=== PATIENT | female | born 1955 | race Caucasian/White ===

== ENCOUNTER 2018-12-04 02:04 | Outpatient (CLI) | payer BC, SELFPAY ==
[2018-12-04 12:58] LABS: HCT 38.7 % (36.0-46.0); HGB 12.4 g/dL (12.0-15.5); Mean Corpuscular Hemoglobin 27.2 pg (27.0-33.0); Mean Corpuscular Volume 84.9 fL (80-95); Mean Platelet Volume 10.1 fL (8.0-11.0); Platelet Count 310 x1000/uL (130-400); RBC 4.56 m/cumm (4.00-5.20); RBC Distribution Width 15.2 % (11.7-14.6); White Blood Cell Count 5.25 k/cumm (4.4-10.8)
[2018-12-04 14:32] LABS: ALT 20 U/L (12-78); AST 18 U/L (15-37); Albumin 3.6 g/dL (3.4-5.0); Alkaline Phosphatase 68 U/L (46-116); Anion Gap 8.7 mmol/L (3-11); BUN 16 mg/dL (7-18); Bilirubin, Total 0.7 mg/dL (0.2-1.0); CO2 27.3 mmol/L (21.0-32.0); CREATININE 0.93 mg/dL (0.55-1.02); Calcium 9.1 mg/dL (8.5-10.1); Chloride 104 mmol/L (98-107); Glucose 99 mg/dL (70-100); Sodium 140 mmol/L (136-145); TSH (W/Ref FT4) 2.09 uIU/mL (0.358-3.74); Total Protein 6.8 g/dL (6.4-8.2); Vitamin B12 948 pg/mL (193-986)
== END 2018-12-04 02:24 ==
PROVIDERS: PCP Family Medicine; Visit Provider Family Medicine
DX: I48.91 Unspecified atrial fibrillation (principal); R53.83 Other fatigue
CPT/HCPCS: 36415; 80053; 85027; 82607; 84443

== ENCOUNTER 2019-12-18 07:28 | Outpatient (CLI) | payer BC, SELFPAY ==
--- NOTE | 2019-12-18 08:00 | DI.RAD_ITS ---
EXAM: XR KNEE RT 4V AP,LAT,ADITYA,PAT CLINICAL HISTORY: r knee pain,M25.561 TECHNIQUE: 2D digital imaging was performed. COMPARISON: CR RIGHT KNEE COMPLETE from 07/10/2014 FINDINGS: There is moderate narrowing of the medial femoral tibial joint, similar to the previous exam. There is mild to moderate periarticular spurring throughout. Patellofemoral joint is well maintained. An enthesophyte is seen at the quadriceps insertion. No joint effusion is visible. IMPRESSION: moderate degenerative changes of the medial femoral tibial joint, with some worsening when compared w ith 2014..
== END 2019-12-18 07:48 ==
PROVIDERS: PCP Family Medicine; Visit Provider Family Medicine
DX: M25.561 Pain in right knee (principal); M17.11 Unilateral primary osteoarthritis, right knee
CPT/HCPCS: 73564

== ENCOUNTER 2020-02-11 02:38 | Outpatient (CLI) | payer BC, SELFPAY ==
[2020-02-11 09:12] LABS: ALT 26 U/L (14-59); AST 18 U/L (15-37); Albumin 3.8 g/dL (3.4-5.0); Alkaline Phosphatase 67 U/L (46-116); Anion Gap 7.6 mmol/L (3-11); BUN 12 mg/dL (7-18); Bilirubin, Total 0.9 mg/dL (0.2-1.0); CO2 27.4 mmol/L (21.0-32.0); CREATININE 0.89 mg/dL (0.55-1.02); Calcium 10.3 mg/dL (8.5-10.1); Calculated LDL 106 mg/dL (<100); Chloride 106 mmol/L (98-107); Cholesterol 203 mg/dL (<200); Glucose 93 mg/dL (74-106); HDL Cholesterol 75 mg/dL (40-60); Potassium 4.4 mmol/L (3.5-5.1); Sodium 141 mmol/L (136-145); Triglyceride 114 mg/dL (<150)
== END 2020-02-11 02:58 ==
PROVIDERS: PCP Family Medicine; Visit Provider Family Medicine
DX: I48.91 Unspecified atrial fibrillation (principal)
CPT/HCPCS: 36415; 80053; 80061

== ENCOUNTER → 2021-07-01 10:13 | Outpatient (BNVA) | payer MEDICARE, BC, SELFPAY | PROVIDERS: PCP Family Medicine; Referring Provider Family Medicine; Visit Provider Student in an Organized Health Care Education/Training Program | DX: M17.11 Unilateral primary osteoarthritis, right knee (principal) | CPT/HCPCS: 20610; J1040 ==

== ENCOUNTER 2021-11-01 10:23 | Outpatient (CLI) | payer MEDICARE, BC, SELFPAY | END 2021-11-01 10:24 | disposition home or self-care (01) | LOC: DIORS 10:23 | PROVIDERS: PCP Family Medicine; Referring Provider Family Medicine; Visit Provider Physician Assistant | DX: Z01.818 Encounter for other preprocedural examination (principal); M17.11 Unilateral primary osteoarthritis, right knee ==

== ENCOUNTER 2021-11-08 01:19 | Outpatient (CLI) | payer MEDICARE, BC, SELFPAY ==
[2021-11-08 09:56] LABS: HCT 39.8 % (36.0-46.0); HGB 12.7 g/dL (11.2-15.7); MCH 29.3 pg (27.0-33.0); MCHC 31.9 % (32.0-36.0); MCV 92 fL (80-95); MPV 9.5 fL (8.0-11.0); Platelet Count 282 10^3/uL (130-400); RBC 4.34 10^6/uL (3.93-5.22); RDW 13.2 % (11.7-14.6); RDW-SD 44.7 fL; WBC 5.71 10^3/uL (4.4-10.8)
[2021-11-08 11:22] LABS: Source Nasal/Nares
[2021-11-08 11:31] LABS: Anion Gap 7.9 mmol/L (3-11); BUN 14 mg/dL (7-18); CO2 26.1 mmol/L (21.0-32.0); Calcium 9.8 mg/dL (8.5-10.1); Chloride 104 mmol/L (98-107); Estimated GFR 55.64 (mL/min/1.73m2); Glucose 129 mg/dL (74-106); Potassium 4.6 mmol/L (3.5-5.1); Sodium 138 mmol/L (136-145)
[2021-11-08 19:01] LABS: COVID-19 PCR Negative (Negative)
== END 2021-11-08 01:20 | disposition home or self-care (01) ==
LOC: LBO 01:19
PROVIDERS: PCP Family Medicine; Visit Provider Student in an Organized Health Care Education/Training Program
DX: M25.561 Pain in right knee (principal); M17.11 Unilateral primary osteoarthritis, right knee; Z20.822 Contact with and (suspected) exposure to COVID-19; Z01.818 Encounter for other preprocedural examination; Z01.812 Encounter for preprocedural laboratory examination
CPT/HCPCS: 36415; 80048; 85027; 87635; U0005

== ENCOUNTER 2021-11-08 01:41 | Outpatient (CLI) | payer MEDICARE, BC, SELFPAY | END 2021-11-08 01:42 | disposition home or self-care (01) | LOC: LBO 01:41 | PROVIDERS: PCP Family Medicine; Visit Provider Student in an Organized Health Care Education/Training Program ==

== ENCOUNTER 2021-11-12 01:29 | Outpatient (CLI) | payer MEDICARE, BC, SELFPAY ==
[2021-11-12 10:22] LABS: Source Nasal/Nares
[2021-11-12 15:57] LABS: COVID-19 PCR Negative (Negative)
== END 2021-11-12 01:30 | disposition home or self-care (01) ==
LOC: LBO 01:29
PROVIDERS: PCP Family Medicine; Visit Provider Student in an Organized Health Care Education/Training Program
DX: Z20.822 Contact with and (suspected) exposure to COVID-19 (principal); Z01.818 Encounter for other preprocedural examination
CPT/HCPCS: 87635; U0005

== ENCOUNTER 2021-11-22 02:39 | Outpatient (CLI) | payer MEDICARE, BC, SELFPAY ==
[2021-11-22 11:20] LABS: Source Nasal/Nares
[2021-11-22 17:21] LABS: COVID-19 PCR Negative (Negative)
== END 2021-11-22 02:40 | disposition home or self-care (01) ==
LOC: LBO 02:40
PROVIDERS: PCP Family Medicine; Visit Provider Student in an Organized Health Care Education/Training Program
DX: Z20.822 Contact with and (suspected) exposure to COVID-19 (principal); Z01.818 Encounter for other preprocedural examination
CPT/HCPCS: 87635; U0005

== ENCOUNTER 2021-11-23 07:07 | Day surgery (SDC) | payer MEDICARE, BC, SELFPAY ==
[2021-11-23] VITALS (7 sets, daily range): BP systolic 137–157; BP diastolic 60–87; PULSE 54–71; RESP 12–49; TEMP 35.9–37; O2SAT 53–98; BMI 36.2
--- NOTE | 2021-11-23 07:19 | W.PM.DS.N ---
DS: Diagnosis Discharge Diagnosis (1) Osteoarthritis of right knee: Status: Acute Discharge Plan Disposition Patient Disposition: HOME Condition: Good Discharge Details Reason For Visit: Right knee DJD Attending Provider: Reyes Monet Primary Care Provider: Sharon Gore Home Meds and New Rx's Prescriptions: New aspirin 81 mg tablet,delayed release (DR/EC) 81 mg PO BID Qty: 60 0RF celecoxib 200 mg capsule 200 mg PO BID PRN (Reason: pain) Qty: 60 1RF pantoprazole 40 mg tablet,delayed release (DR/EC) 40 mg PO DAILY Qty: 30 0RF oxycodone 5 mg tablet 5 mg PO Q4H Qty: 18 0RF Continued famotidine [Pepcid] 20 mg tablet 20 mg PO HS nystatin 100,000 unit/gram powder 1 applic TP BID Qty: 60 4RF sertraline 25 mg tablet 25 mg PO DAILY Qty: 90 4RF propafenone 225 mg capsule,extended release 12 hr 225 mg PO Q12H Qty: 180 3RF estradiol [Yuvafem] 10 mcg tablet 10 mcg VG 2 times weekly Qty: 24 11RF clonazepam 1 mg tablet 1 mg PO QHS MDD 1 PRN (Reason: insomnia) Qty: 30 1RF Rx Instructions: use sparingly acetaminophen [Acetaminophen Extra Strength] 500 MG tablet 1,000 mg PO Q8H PRN PRNQty: 180 3RF Discharge Instructions Additional Instructions: Total Knee Discharge Instructions Activity: The most important activity is to walk. You should try to take short walks a few times a day. It is important that when resting you work on keeping the knee straight. Avoid putting a pillow behind the knee as this will encourage flexion. Work on range of motion exercises as provided by Physical Therapy. If you have the [employer] [address] bike coming, this will be your primary tool for exercise after the knee replacement. You should use it and follow the directions for the knee. Utilize the other exercises sparingly based on your symptoms. - Start outpatient physical therapy within 2 weeks. - You should wear the SANJAY hose on both legs for 2 weeks. You may remove these at night. You may also use any compression sock in place of the SANJAY hose. - Utilize [employer] to review exercises, see videos on exercises and obtain basic information pertaining to your surgery and your recovery. Dressing: Remove the Aj wrap by 2 days after your surgery and put on the SANJAY stocking given to you from the hospital. Keep the surgical dressing (underneath the AJ wrap) in place for at least one week. After the first week it may be removed and replaced with light gauze and tape or nothing. The wound and dressing may get wet after 3 days but avoid soaking the dressing or otherwise it will need to be changed. Many people prefer covering the dressing with cling wrap (saran wrap) to minimize it from getting soaked. If it gets wet, just pat dry. If it starts to peel off then it will need to be changed. Medications: - You should take Tylenol and anti-inflammatory Celebrex as your primary pain control medications. If the Celebrex is too expensive or not covered, please call the office for another alternative (Advil/Ibuprofen or Naproxen/Aleve) - You have been prescribed a stronger pain medication Oxycodone for breakthrough pain, take as needed as prescribed. - You have also been prescribed a stomach acid reduction agent Pantoprozole to help reduce stomach acid and reflux. - You will be taking Aspirin 81mg twice a day for DVT prevention unless instructed otherwise. - If you have constipation you should take Colace or Miralax (both [id number]). It takes most people 3-4 days to have a bowel movement. Follow-up: 2 weeks If you have any acute concerns or questions, please do not hesitate to contact the office at [phone]. You may contact Dr. Monet with any questions after hours through the hospital at [phone] or on his cell phone at [phone]. Referrals: Reyes Monet MD [ [facility] STAFF PHYSICIAN] - Equipment/Supplies: Walker Activity:: Elevate Remove Dressings/Wound Care:: Do Not Remove Shower/Bathe:: Cover Diet:: As Tolerated Discharge Orders Discharge Orders: Discharge Order (Routine); Ordered 11/23/21 Ordered By: Reyes Monet DS: Summary Time Spent with Patient providing and/or coordinating discharge services: Less than 30 minutes Status at Discharge Functional status at discharge: uses cane/walker Overall status at discharge: patient is progressing back to baseline Mental Status: mental status grossly normal Speech and Movement: speech and movement normal Mood: congruent mood Affect: normal affect Exam Psych Mental Status: mental status grossly normal Speech and Movement: speech and movement normal Mood: congruent mood Affect: normal affect PFSH All Active Problems Acromioclavicular joint arthritis (Chronic) Anxiety and depression (Chronic 01/15/14) Atrial fibrillation (Chronic) Atrophic vaginitis (Chronic 11/02/17) Gastritis (Chronic) 12/07/15-MILD; Keith ZENG H. PYLORI INFECTION Hiatal hernia (Chronic) 3 cm 12/07/15 DR. ZEPEDA 11/03/20 [facility] Irritable colon (Chronic) Partial tear of right rotator cuff (Chronic 01/01/16) Posterior vitreous detachment (Chronic 07/14/14) Shoulder pain, left (Chronic 07/08/14) Tinnitus (Chronic) Annual physical exam (Acute) Osteoarthritis of right knee (Acute) Depo-Medrol injection: 07/01/2021; 03/02/2020 Synvisc ONE: 01/15/2021 Cerumen impaction (Acute) Medical History Anxiety Atrial fibrillation F/U with cardiology @ [facility] [place]. Dr. Hwang 04/2021 Depression GERD (gastroesophageal reflux disease) H. pylori infection (04/07/16) Hiatal hernia Menopausal disorder (07/08/14) Microscopic hematuria Rotator cuff tendonitis Surgical History Arthroscopy, Shoulder 10/06/15; RIGHT Augmentation mammoplasty B/L IMPLANTS Cystoscopy Hysterectomy, Laproscopic (~2007) [facility] STRESS TEST (~03/2011) NORMAL Family History (Updated 11/24/20 @ 10:08 by Tori Lam) Father Colon cancer Essential hypertension Heart disease Hyperlipidemia Mother Essential hypertension Depression Brother Essential hypertension Heart disease Myocardial infarction Neoplasm LUNG Asthma Brother Diabetes Paternal Grandfather Diabetes Essential hypertension Maternal Grandmother Essential hypertension Depression Asthma Social History (Updated 11/24/20 @ 10:08 by Tori Lam) Smoking/Tobacco Use Status: Never Second Hand Exposure: No (CHILDHOOD EXPOSURE) Smoking risk assessment performed?: Yes Alcohol Intake: current Alcohol Intake frequency: a few times a week Alcohol type: hard liquor Drug use: Never Substance use type: does not use Caregiver/Support person: No Household members: spouse Housing: house Communication Needs: None Do you need help understanding health information?: Never Pets and animals: No Sexually active: Yes Do you think of yourself as: straight/heterosexual Current gender identity: female What is your relationship status?: How often do you talk on the phone with friends or family?: once per week How often do you get together with friends or relatives?: once per week How often do you attend episcopalian or anglican services?: decline to answer Do you belong to any clubs or organized social groups?: yes Panel score (0-1 are the most socially isolated patients): 2 What type of physical activity do you participate in: walking and yoga Duration: 30-45 minutes/day Frequency: 3-4 times per week Yaneli/Church: Taoism Special yaneli needs: No Seatbelt use: always Helmet use: Yes Helmet use: sometimes Drive intox or ride w/intox dedicated regional driver: No Do you feel safe at home: Yes (Spouse is in room) Do you feel safe in your relationship?: Yes
[2021-11-23] MEDS: Gabapentin 300 MG CAP PO (07:45)
[2021-11-23] MEDS: Celecoxib 200 MG CAP 400 MG PO (07:45)
[2021-11-23] MEDS: Acetaminophen 500 MG TAB 1000 MG PO (07:46)
[2021-11-23] MEDS: Lactated Ringers 1,000 ML 80 ML IV (07:50)
--- NOTE | 2021-11-23 07:51 | ANES.PREOP_ITS ---
General Info Date of Service Date Performed: 11/23/21 Height: 5 ft 5 in Weight: 98.7 kg Body Mass Index (BMI): 36.2 Surgical Procedure: Operation Date: 11/23/21 10:10 Proposed Procedure Side Surgeon p Knee Total Arthroplasty Cementless Right Reyes Monet MD Meds Allergies and Home Medications Allergies Allergy/AdvReac Type Severity Reaction Status Date / Time No Known Drug Allergies Allergy Verified 11/23/21 07:37 Home Medication Medication Instructions Recorded acetaminophen 500 mg tablet 1,000 mg PO Q8H PRN PRN #180 tabs 05/12/16 (Acetaminophen Extra Strength) nystatin 100,000 unit/gram topical 1 applic topical BID #60 grams 04/06/21 powder sertraline 25 mg tablet 25 mg PO DAILY #90 tab-caps 06/14/21 propafenone 225 mg 225 mg PO Q12H #180 caps 08/13/21 capsule,extended release 12 hr estradiol 10 mcg vaginal tablet 10 mcg vaginal 2 times weekly #24 08/16/21 (Yuvafem) tab-caps clonazepam 1 mg tablet 1 mg PO QHS PRN insomnia #30 tabs 08/22/21 famotidine 20 mg tablet (Pepcid) 20 mg PO HS 11/01/21 Current Visit Medications: Current Medications Generic Name Dose Route Start Last Admin Trade Name Freq PRN Reason Stop Dose Admin Acetaminophen 1,000 mg 11/23/21 06:00 11/23/21 07:46 Acetaminophen 500 Mg Tab PO 11/23/21 18:00 1,000 mg PREOP JORGE LUIS Administration Acetaminophen 1,000 mg 11/23/21 14:00 Acetaminophen 500 Mg Tab PO TID JORGE LUIS Aspirin 81 mg 11/23/21 20:00 Aspirin E.C. 81 Mg Tabec PO BID JORGE LUIS Celecoxib 400 mg 11/23/21 06:00 11/23/21 07:45 Celecoxib 200 Mg Cap PO 11/23/21 18:00 400 mg PREOP JORGE LUIS Administration Celecoxib 200 mg 11/23/21 20:00 Celecoxib 200 Mg Cap PO BID JORGE LUIS Docusate Sodium 100 mg 11/23/21 07:17 Docusate Sodium 100 Mg Cap PO BID PRN PRN Constipation Gabapentin 300 mg 11/23/21 06:00 11/23/21 07:45 Gabapentin 300 Mg Cap PO 11/23/21 18:00 300 mg PREOP JORGE LUIS Administration Gabapentin 300 mg 11/23/21 22:00 Gabapentin 300 Mg Cap PO HS JORGE LUIS Hydromorphone HCl 0.5 mg 11/23/21 07:17 Hydromorphone 2 Mg/Ml Vial IVP Q2H PRN PRN Tranexamic Acid 1,000 mg/ 60 mls @ 360 mls/hr 11/23/21 06:00 Sodium Chloride IVPB 11/23/21 18:00 PREOP JORGE LUIS Tranexamic Acid 1,000 mg/ 60 mls @ 360 mls/hr 11/23/21 06:00 Sodium Chloride IVPB 11/23/21 18:00 DIRECTED JORGE LUIS Ringer's Solution 1,000 mls @ 80 mls/hr 11/23/21 06:00 IV 12/22/21 23:59 INFUSION JORGE LUIS Cefazolin Sodium/Dextrose 2 gm in 50 mls @ 100 mls/hr 11/23/21 06:00 Ancef Duplex IVPB 11/23/21 18:00 PREOP JORGE LUIS Cefazolin Sodium/Dextrose 1 gm in 50 mls @ 100 mls/hr 11/23/21 08:00 Ancef Duplex IVPB 11/24/21 00:29 Q8H JORGE LUIS IV Miscellaneous Supplies 1 each 11/23/21 06:00 Iv Access IV 12/22/21 23:59 DIRECTED JORGE LUIS Ondansetron HCl 4 mg 11/23/21 07:17 Ondansetron 4 Mg/2 Ml Vial IVP Q6H PRN PRN Nausea Oxycodone HCl 0 mg 11/23/21 07:17 Oxycodone 5 Mg Tab PO Q3H PRN PRN Pain Pantoprazole Sodium 40 mg 11/24/21 07:30 Pantoprazole 40 Mg Tabcr PO DAILY@0730 [facility] Polyethylene Glycol 17 gm 11/23/21 07:17 Polyethylene Glycol 3350 17 Gm Packet PO BID PRN PRN Constipation Sodium Chloride 0 ml 11/23/21 06:00 Normal Saline Flush 10 Ml Syr IV 12/22/21 23:59 PRN PRN Sodium Chloride 0 ml 11/23/21 06:00 Normal Saline 10 Ml Vial IJ 12/22/21 23:59 DIRECTED PRN Sterile Water 0 ml 11/23/21 06:00 Water,Injection,Sterile 10 Ml Vial IJ 12/22/21 23:59 DIRECTED PRN PFSH Active Problems Active Problems: Problem Status Onset Code Acromioclavicular joint arthritis M19.90 Anxiety and depression 01/15/14 F41.9, F32.9 Atrial fibrillation I48.91 Atrophic vaginitis 11/02/17 N95.2 Gastritis K29.70 Hiatal hernia K44.9 Irritable colon K58.9 Partial tear of right rotator cuff 01/01/16 M75.111 Posterior vitreous detachment 07/14/14 H43.819 Shoulder pain, left 07/08/14 M25.512 Tinnitus H93.19 Annual physical exam Z00.00 Osteoarthritis of right knee M17.11 Cerumen impaction H61.20 Medical History Medical History Anxiety Atrial fibrillation F/U with cardiology @ [facility] [place]. Hwang 04/2021 Depression GERD (gastroesophageal reflux disease) H. pylori infection (04/07/16) Hiatal hernia Menopausal disorder (07/08/14) Microscopic hematuria Rotator cuff tendonitis Medical History Comments:: Pt. stated her grandon tested positve and was notified yesterday she was arond him monday 11/06 patient is vaccinated and boosted, and currently has no symptoms and was covid tested 11/08 and negative. DIGNA nixon, pt report: previous surgery problem with intubation. Anes Comment: Pt. stated that she has been told previously from other procedures that she has a very difficult throat to get the tube down Surgical History Surgical History Arthroscopy, Shoulder 10/06/15; RIGHT Augmentation mammoplasty B/L IMPLANTS Cystoscopy Hysterectomy, Laproscopic (~2007) [facility] STRESS TEST (~03/2011) NORMAL Tobacco Smoking/Tobacco Use Status: Never Passive smoking exposure: No Second hand exposure: No (CHILDHOOD EXPOSURE) Alcohol Alcohol Intake: current Alcohol intake frequency: a few times a week Alcohol type: hard liquor Substance Use Substance use: Never Substance use type: does not use Vital Signs and Lab Results Vital Signs Most Recent Vital Signs in EMR: Most Recent Vital Signs Temp Pulse Resp BP Pulse Ox 37 C 71 12 146/87 H 98 11/23/21 07:18 11/23/21 07:18 11/23/21 07:18 11/23/21 07:18 11/23/21 07:18 Lab Results Blood Type / Crossmatch: No Data to Display Complete Blood Count: White Blood Count 5.71 10^3/uL (4.4-10.8) 11/08/21 09:50 Red Blood Count 4.34 10^6/uL (3.93-5.22) 11/08/21 09:50 Hemoglobin 12.7 g/dL (11.2-15.7) 11/08/21 09:50 Hematocrit 39.8 % (36.0-46.0) 11/08/21 09:50 Platelet Count 282 10^3/uL (130-400) 11/08/21 09:50 Complete Metabolic Panel: Sodium Level 138 mmol/L (136-145) 11/08/21 09:50 Potassium Level 4.6 mmol/L (3.5-5.1) 11/08/21 09:50 Chloride Level 104 mmol/L (98-107) 11/08/21 09:50 Carbon Dioxide Level 26.1 mmol/L (21.0-32.0) 11/08/21 09:50 Blood Urea Nitrogen 14 mg/dL (7-18) 11/08/21 09:50 Creatinine 1.0 mg/dL (0.55-1.02) 11/08/21 09:50 Estimated GFR/1.73 m2 55.64 (mL/min/1.73m2) 11/08/21 09:50 Calcium Level 9.8 mg/dL (8.5-10.1) 11/08/21 09:50 Glucose Level 129 mg/dL (74-106) H 11/08/21 09:50 Liver Function Panel: No Data to Display Coagulation Panel: No Data to Display Cardiac Panel: No Data to Display Arterial Blood Gas: No Data to Display Venous Blood Gas: No Data to Display Pancreas Panel: No Data to Display Thyroid Panel: No Data to Display Infectious Disease: Coronavirus (COVID-19)(PCR) Negative (Negative) 11/22/21 10:49 Coronavirus 2019 Source Nasal/Nares 11/22/21 10:49 Blood Cultures: No Data to Display Toxicology Panel: No Data to Display Anesthesia Assessment and Plan Anesthesia History Personal History: Other Family History: No Family History of Anesthesia Complications Exercise Tolerance Exercise Tolerance: Metabolic Equivalents>4 Pertinent Negatives Pertinent Negatives: No Symptoms of GERD, No Major Cardiovascular Symptoms or Complaints, No Major Pulmonary Symptoms or Complaints and No History of CVA/TIA Cardiac & Pulmonary Exam Cardiac Exam: Normal S1/S2 Heart Sounds Pulmonary Exam: Clear Bilateral Breath Sounds Implantable Cardiac Device Does patient have a Pacemaker or an ICD?: No Airway Exam Known Difficult Airway: No Mallampati Class: 1 Mouth Opening: Normal (> 3cm) Thyromental Distance: Greater than 3 cm Neck Range of Motion: Full ROM Neck Circumference: Normal Teeth Condition: Normal Dentition ASA Classification ASA Score: ASA 2 Emergency Case?: No NPO Status NPO Status: NPO Clears >2 hours, Solids >8 hours Anesthesia Plan Resuscitation Status: Full Code Anesthesia Technique: General Anesthesia Airway Planned: Natural Airway Pain Management: Surgeon and patient request nerve block Monitors Used: Standard Monitors
--- NOTE | 2021-11-23 08:24 | W.ANESNERVE ---
Nerve Block Single Injection Procedure Date and Time Date Performed: 11/23/21 Procedure Start: 08:20 Location Where Procedure Performed Procedure Location: Day Surgery Unit Reason Performed: Postoperative Analgesia Requesting Provider: Reyes Monet Timeout Performed Timeout Performed: Yes Monitoring Used ECG, Blood Pressure and SpO2 Sterility Sterility: Hand Hygiene, Surgical Cap, Surgical Mask, Sterile Gloves, Eye Protection and Chlorhexidine Sedation Given During Procedure Sedation Given (Indicate Dose Given): No Sedation given Patient Mental Status Patient Mental Status: Awake Nerve Block 1st Nerve Block: Laterality: Right Block Type: Adductor Canal Needle / Catheter Used: 100mm SonoPlex II Local Anesthetic Bolus (Indicate Dose Given): Lidocaine used for local infiltration of skin, Injected in 3-5ml increments after negative blood aspiration and Bupivacaine 0.25% Dose:: 15 ml Additives (Indicate Dose Given): None Ultrasound: Sterile probe cover and gel used Ultrasound Image Saved?: Yes Nerve Stimulator: Not Used Paresthesia: None Procedure Tolerated: No Complications and Patient tolerated well Procedure Outcome: Successful Performed By: Tiny Alfaro Supervised By: Sharlene Lockwood
[2021-11-23] MEDS: ceFAZolin 2 GM/50 ML BAG IVPB (09:03)
--- NOTE | 2021-11-23 11:28 | W.ANESPOSTOP ---
Postoperative Evaluation Date, Time and Location Date Performed: 11/23/21 Time Performed: 11:05 Patient Location: PACU Vital Signs Most Recent Imported Vital Signs: Most Recent Vital Signs Temp Pulse Resp BP Pulse Ox 36.3 C L 54 L 49 H 144/71 H 53 L 11/23/21 11:03 11/23/21 11:03 11/23/21 11:03 11/23/21 11:03 11/23/21 11:03 Pain Score Most Recent Pain Score: Most Recent Pain Score Pain Level 0 11/23/21 11:03 Assessment Mental Status: Awake (Alert & Oriented to Patient Baseline) Airway and Respiratory Function: Patent airway with normal (patient baseline) respiratory exam Cardiovascular Function: Hemodynamically Stable Hydration Status: Adequately Hydrated Nausea & Vomiting: No Nausea or Vomiting Pain: Pt. Denies Any Pain Peripheral Nerve Block: Patient did not receive a nerve block
[2021-11-23] MEDS: oxyCODONE 5 MG TAB PO (11:47)
--- NOTE | 2021-11-23 12:58 | IN_ITS ---
Date of service: 11/23/21 Time of Service: 12:58 PT Notes Visit Reasons: Right knee DJD Physical Therapy Day Surgery Initial Evaluation Date: 11/23/2021 Referring Doctor: KENDELL Mukherjee PT Orders: PT CONSULT: S/P Ortho Surgery Precautions: WBAT on right LE with AD. Patient Profile/Admitting Diagnosis: Dina is a degenerative joint disease of the right knee and status post right total knee arthroplasty on postoperative day 0. PMHX: Medical History?(Updated 07/01/21 @ 11:23 by Lexi Modi) Anxiety Atrial fibrillation Depression GERD (gastroesophageal reflux disease) H. pylori infection (04/07/16) Hiatal hernia Menopausal disorder (07/08/14) Microscopic hematuria Rotator cuff tendonitis Surgical History? Arthroscopy, Shoulder 10/06/15; RIGHTAugmentation mammoplasty B/L IMPLANTS Cystoscopy Hysterectomy, Laproscopic (~2007) [facility] STRESS TEST (~03/2011) NORMAL Social History/Home Situation: Lives with in a private home with 4 steps to enter with the rails. Independent with all aspects of ADLs prior to surgery. Equipment Owned/DME: [facility] Subjective: Agreeable to PT consult. Reports pain and at rest, 2/10 with weight bearing. Objective: General Observation: Supine in bed. SHALINI wraps to R LE. Cryocuff to R knee. TEDS in L leg. Mental Status: Alert and oriented x 4 Pain: Reports pain and at rest, 2/10 with weight bearing. ROM: Right Lower Extremity: Hip flexion WFL. Hip abduction WFL. Knee flexion 10 degrees to 95 degrees. Knee extension -10 degrees. Ankle dorsiflexion WFL. Ankle plantarflexion WFL. Left Lower Extremity: Hip flexion WFL. Hip abduction WFL. Knee flexion WFL. Ankle dorsiflexion WFL. Ankle plantarflexion WFL. Strength: Right Lower Extremity: Hip flexors 4/5. Hip abductors 5/5. Knee flexors 3-/5. Knee extensors 3-/5. Ankle dorsiflexors 5/5. Ankle plantarflexors 5/5. Left Lower Extremity:Hip flexors 5/5. Hip abductors 5/5. Knee flexors 5/5. Knee extensors 5/5. Ankle dorsiflexors 5/5. Ankle plantarflexors 5/5. Sensation: Intact as to pain and light pressure in bilateral lower extremities Bed Mobility/Transfers: Supine to sit supervision Sit to stand contact-guard assist Stand to sit standby assist Bed to chair standby assist Gait: Guided patient through level surface ambulation of 150 feet using front wheeled walker with step to gait pattern requiring standby assist. Good right quad activation. Denies headache, chest pain, and dizziness throughout activity. Balance: Static Sitting: Normal Dynamic Sitting: Normal Static Standing: Fair Dynamic Standing: Fair Special Tests: Mobility Limitations Standardized Measure [facility] AM-PAC 6 clicks Basic Mobility Inpatient Short Form: Raw Score: 23 CMS Score: 11% deficit Informed Consent/Education: Patient instructed in purpose of PT consult. Education and training on initial set of exercises that can be done at home have been completed with patient and in reference to the [employer] [facility]. Assessment: [employer] use of a front-wheeled walker maximize independence and reduce fall risk. Patient presents with clinical signs and symptoms consistent with current/admitting diagnoses that have resulted to mobility limitations and gait instability as demonstrated by the following impairment level findings: 1. Decreased strength to right knee major muscle groups 2. Impaired standing balance 3. Limitation of joint range of motion in right knee Impairments are contributing to the following functional limitations: 1. Inability to safely ambulate without assistive device 2. Increase completion time for mobility ADL performance 3. Increased fall risk Patient is assessed as a 72998 moderste complexity based on the following: History: 65-year-old female with impairment level findings, functional limitations, and past medical history as indicated above Examination: Demonstrable impairment in strength, balance, and mobility level with underlying impairments and functional limitations as documented above Presentation: Evolving Decision Makin moderate complexity Goals: N/A. PT evaluation and 1-2 treatment sessions only for functional mobility training using recommended AD and for HEP instruction. Plan of Care/Treatment Plan: N/A. PT evaluation and 1-2 treatment session only for functional mobility training using recommended AD and for HEP instruction. DISCHARGE RECOMMENDATIONS: [] Home with no services [] [] Home with services [specify] [X] Home with outpatient PT. Home when medically cleared by orthopedic s urgeon. Will benefit from outpatient PT services in order to facilitate return to independent community ambulation and ADL performance without an assistive device. [] SNF for continued rehabilitation [] [] [facility] [] [] SNF versus LTC based on ability to participate and progress [] TREATMENT CODE/TIME: 02691 x 20 minutes, 13167 x 25 minutes beginning at 12:58 PM. Thank you for the opportunity to participate in the care of this patient. Bisi Oneal PT, DPT, CLT [facility] [place], [place]
--- NOTE | 2021-11-23 13:16 | ROE_ITS ---
Date of service: 11/23/21 Time of Service: 11:00 Operative Note Operative Note DATE OF PROCEDURE: 11/23/21 PRE-OP DIAGNOSIS: Knee Osteoarthritis POST-OP DIAGNOSIS: same PROCEDURE: Right Total Knee Replacement SURGEON: Reyes Monet APPRENTICESHIP REPRESENTATIVE: Lexi Modi ANESTHESIA TYPE: Spinal Refer to Anesthesia Record PATHOLOGY: none sent TOURNIQUET TIME: 0 COMPLICATIONS: None Patient was transported to: PACU Patient's condition: stable Implants: 1. Depuy Attune Cementless Cruciate Retaining Femoral Component, Size 6 2. Depuy Attune Cementless Rotating Platform Tibial Component, Size 5 3. Depuy Attune 6x8 CR/RP Poly 4. Depuy Attune Patellar Component, Size 38 Indications: I have seen Emilie in clinic for symptoms of knee arthritis, confirmed with radiographic findings. She has exhausted nonoperative methods and was having significant limitations in daily function and desired better function and less pain. I discussed the technical details of a knee replacement. I explained the risks of the procedure to include, but not limited to, bleeding, infection, pain, stiffness, fracture, damage to nerves and vessels, damage to muscles and tendons, loosening, need for repeat procedure, blood clot and cardiopulmonary demise. Despite these risks, Emilie elected to proceed. Findings: There was significant signs of arthritis throughout the knee, focused mostly medially. Procedure Description: Emilie was greeted in the preoperative holding area where the correct side was identified and marked. The consent was reviewed with the patient and signed. The history and physical was updated. All questions were answered. Preoperative medications were administered: Acetaminophen 1000mg, Celebrex 400mg, and Gabapentin 300mg. An adductor canal block was then administered by the anesthesia team in the PACU. She was taken back to the operating room. A spinal anesthestic was then administered. The patient was placed into the supine position on the operating room table. A nonsterile tourniquet was placed high onto the leg but only used for cementing. Posts were placed for positioning during the procedure. All bony prominences were well padded. Prophylactic antibiotics in the form of Cefazolin were administered. 1g of Tranxemic Acid was given intravenously within 30 minutes of incision. The right leg was then prepped with Chloraprep and draped in a standard fashion with impervious stockinette. A second prep with Chloraprep was performed prior to application of Iodine impregnated skin protection. A timeout to confirm correct identity, side and site, procedure, allergies, anesthesia, and medical concerns was performed. With the knee in some flexion, a midline incision was made overlying the knee. Full thickness skin flaps were raised once the extensor mechanism was encountered. These were raised medially and laterally. Any bleeding was controlled with electrocautery. Once the extensor mechanism was fully exposed, a medial parapatellar arthrotomy was performed in a flexed position. All bleeding from the arthrotomy and the geniculate arteries was coagulated. A medial subperiosteal peel was performed with electrocautery to the midcoronal plane. The fat pad was removed while keeping the patellar tendon protected. The anterior distal femur synovium was removed for later visualization. The ACL and PCL were resected and the anterior horn of the lateral meniscus was transected. The knee was then flexed with the patella everted. Using a step drill, and based on preoperative templating, the femoral canal was entered. This was done with a step drill without any difficulty. The intramedullary distal femoral cut guide was inserted, set to a 5 degree valgus cut and 9mm cut thickness. The distal femoral cut guide was then held in position and pinned. With the soft tissues protected, the distal cut was performed. This was passed over a few times to ensure a planar cut. I then turned attention to the tibia. The extramedullary guide was placed onto the leg. The distal aspect was slid medial to adjust for position of center of ankle and stay in line with shaft of the tibia. Approximately 3-5 degrees of posterior slope was kept in the proximal cutting guide. The center of the guide was aligned with the PCL. The stylus was used to assess cut thickness. The medial side, most involved side, was set for a 4mm cut. This was then held in position and pinned into place with 2 additional pins and a cross pin for stability. The medial and lateral collateral ligaments were protected and the cut was performed. With this completed, it was assessed and noted to be of appropriate dimensions. The guide was removed. A spacer block was inserted and the knee was brought into extension. The 7mm spacer block provided full extension, without hyperextension and with stability of both the medial and lateral collateral ligaments was assessed. The pins from the femur and the tibia were then removed. The distal femur was then sized. The anterior stylus was placed onto the lateral ridge of the anterior femur. This indicated a size 6 femur. The external rotation of the guide was adjusted to 3 degrees to match the epicondylar axis, perpendicular to Nigel?s line. The 4-in-1 cutting guide was the placed. The posterior medial femur cut was evaluated and appeared of good thickness. The spacer block was inserted underneath the cutting guide and stability was confirmed in 90 degrees of flexion. An sydney wing was used to confirm appropriate position of the anterior cut to avoid notching. This cutting guide was ensured to be flush on the cut surface and then pinned into place with headed pins. While protecting the soft tissues, quad tendon, and collateral ligaments, the anterior and posterior cuts were performed with a saw. The central two pins were removed and the posterior and anterior chamfers were cut next. The notch-cutting guide was placed. This was pinned to lateralize the femoral component as much as possible while keeping it flush on the cut surface. This was then pinned into position. A reciprocating saw was used to make the notch cut. A rasp smoothed the cut surfaces. The medial and lateral menisci were removed. A trial femoral component was then inserted, impacted down to the cut surfaces, and the lug holes were drilled. A provisional trial tibial component was placed and the knee was brought through range of motion. There was noted to be excellent extension and flexion. There was no significant instability. The polyethylene was trialed until there was good flexion and extension with excellent stability to the medial and lateral collaterals. The patella was tracking without thumbs. A size 8mm polyethylene component provided the best range of motion and stability with less than 2mm gapping with medial and lateral stress and full extension without significant hyperextension. The tibial cut surface was fully exposed. The tibia was then sized as a 5. The tibia had been previously marked during trialing to correspond to the center of the tibial component to help with rotation. The trial was aligned to this anamika, approximately rotated to the medial 1/3rd of the tibial tubercle. The trial was pinned into place. The tibia was prepared with a reamer and a keel punch and lug holes. The knee was then brought into extension and the patella was measured as 24mm. Using the patellar clamp and cut guide, this was resected to a flat surface with at least 13mm of thickness remaining. The size 38 patella fit the best. This was oriented and then clamped into position. The lugs were drilled. The trial components were removed. The final components were opened on the back table. The periosteal and capsular tissues, especially posteriorly, around the knee were then systematically injected with a periarticular cocktail consisting of 246mg of Ropivacaine, 0.5mg of Epinephrine, 0.08mg of Clonidine, and 30mg of Ketorolac, diluted to 100cc. On the back table, with the implants opened, the cement was mixed. One batch of high viscosity cement was prepared with vacuum assistance. After the cement was ready a small amount was placed on the cut surface of the patella and the patellar button was clamped into position and held. While the cement was hardening, the cementless knee components were placed. Starting with the tibial component, the tibia was subluxed anteriorly and the lug holes of the component were lined up. The tibia was then impacted with an impactor and mallet until the tibial component was in contact with the tibia. The final polyethylene component was inserted. Then, the femoral component was inserted. The lug holes were aligned and the component was impacted into position. The knee was irrigated with Surgiphor Betadine solution. This was allowed to sit in the knee for 3 minutes and then it was irrigated out with saline. After the cement had finally cured, approximately 15min, the clamp was removed from the patella and the knee was taken through range of motion. The patella was tracking with a no-thumbs technique. The capsule was then reapproximated with a No. 1 Vicryl at multiple locations. The capsule was finally closed with a No. 2 Stratafix, barbed suture. The second dosing of 1g TXA was started. Deep tissues were then reapproximated with 0 Vicryl and 2-0 Vicryl. The skin was closed with a running 3-0 Monocryl in a subcuticular fashion. This was reinforced with skin glue. A Mepilex silver dressing was applied along with a dowt-gr-ewqly SHALINI wrap. A CryoCuff was applied. Emilie was transferred to the hospital bed without difficulty an suffering no apparent complication. She has a good prognosis. Physical therapy will start today and without restrictions, weight-bearing as tolerated. Aspirin 81mg BID will be used for DVT prophylaxis.
== END 2021-11-23 14:35 | disposition home or self-care (01) ==
PROVIDERS: PCP Family Medicine; Visit Provider Student in an Organized Health Care Education/Training Program
PROC: (CPT 27447; principal; 2021-11-23 10:00)
DX: M17.11 Unilateral primary osteoarthritis, right knee (principal); I48.91 Unspecified atrial fibrillation; K21.9 Gastro-esophageal reflux disease without esophagitis; F32.A Depression, unspecified; F41.9 Anxiety disorder, unspecified
CPT/HCPCS: 27447; C1776; 76942; 97162; 97530; J0690; J1100; J1885; J2405

== ENCOUNTER 2021-12-09 11:46 | Outpatient (CLI) | payer MEDICARE, BC, SELFPAY ==
--- NOTE | 2021-12-09 11:42 | DI.RAD_ITS ---
Exam(s) XR KNEE RT 1V EXAM: XR KNEE RT 1V CLINICAL HISTORY: 1ST POST OP R TKA. TECHNIQUE: 2D digital imaging was performed. COMPARISON: CR XR KNEE RT 4V AP,LAT,ADITYA,PAT from 12/18/2019 FINDINGS: Single lateral view Position and alignment of the components of the prosthesis appears stable-well seated on this lateral view. No fracture or loosening evident. IMPRESSION: DATA REPOSITORY: RADIATION DOSE DELIVERED:
--- NOTE | 2021-12-09 11:42 | DI.RAD_ITS ---
Exam(s) XR STANDING ALIGNMENT EXAM: XR STANDING ALIGNMENT CLINICAL HISTORY: 1ST POST R TKA. TECHNIQUE: 2D digital imaging was performed. COMPARISON: CR XR KNEE RT 4V AP,LAT,ADITYA,PAT from 12/18/2019 FINDINGS: There has been interval placement of a right knee prosthesis which appears to be in satisfactory posi tion. Moderate narrowing of the medial compartment of the opposite-left knee is noted. No marginal osteophytes. Ankles unremarkable. Hips unremarkable. Sacroiliac joints unremarkable. Bone density normal. No osseous lesions in the lower extremities evident. IMPRESSION: DATA REPOSITORY: RADIATION DOSE DELIVERED:
== END 2021-12-09 11:47 | disposition home or self-care (01) ==
LOC: DIORS 11:47
PROVIDERS: PCP Family Medicine; Visit Provider Physician Assistant
DX: Z96.651 Presence of right artificial knee joint (principal); Z47.1 Aftercare following joint replacement surgery
CPT/HCPCS: 73560; 77073

== ENCOUNTER → 2021-12-23 09:35 | Outpatient (CLI) | payer MEDICARE, BC, SELFPAY ==
--- NOTE | 2021-12-23 08:15 | DI.US_ITS ---
Exam(s) US LOWER EXTREMITY VENOUS RT EXAM: US LOWER EXTREMITY VENOUS RT CLINICAL HISTORY: PAIN,SWELLING, ?DVT M79.604 PAIN RT LEG Z96.651 ARTIFICIAL KNEE. TECHNIQUE: Lower extremity venous ultrasound performed using grayscale, color-flow, and spectral Do ppler analysis. COMPARISON: US US OR ANESTHESIA from 11/23/2021 FINDINGS: The common femoral, femoral and popliteal veins demonstrate normal compressibility, augmentation, and color Doppler.Clot seen in the proximal to mid posterior tibial vein, approximately 8.5 cm length. No saphenous vein thrombosis or other superficial venous thrombosis is seen. No hematoma or Hdez's cyst is seen. IMPRESSION: Thrombus in mid to posterior posterior tibial vein. DATA REPOSITORY:
== END ==
PROVIDERS: PCP Family Medicine; Visit Provider Physician Assistant Surgical
DX: I82.441 Acute embolism and thrombosis of right tibial vein (principal); Z96.651 Presence of right artificial knee joint
CPT/HCPCS: 93971

== ENCOUNTER → 2022-01-10 09:05 | Outpatient (BNVA) | payer MEDICARE, BC, SELFPAY | PROVIDERS: PCP Family Medicine; Referring Provider Family Medicine; Visit Provider Student in an Organized Health Care Education/Training Program | DX: Z47.1 Aftercare following joint replacement surgery (principal); Z96.651 Presence of right artificial knee joint ==

== ENCOUNTER 2022-01-17 01:24 | Outpatient (CLI) | payer MEDICARE, BC, SELFPAY ==
[2022-01-17 11:57] LABS: Source Nasal/Nares
[2022-01-17 15:36] LABS: COVID-19 PCR Negative (Negative)
== END 2022-01-17 01:25 | disposition home or self-care (01) ==
LOC: LBO 01:24
PROVIDERS: PCP Family Medicine; Visit Provider Student in an Organized Health Care Education/Training Program
DX: Z20.822 Contact with and (suspected) exposure to COVID-19 (principal); Z01.818 Encounter for other preprocedural examination
CPT/HCPCS: 87635

== ENCOUNTER 2022-01-19 07:03 | Day surgery (SDC) | payer MEDICARE, BC, SELFPAY ==
[2022-01-19 07:21] VITALS: BP 136/79; PULSE 72; RESP 16; TEMP 36.3; O2SAT 99
[2022-01-19] MEDS: Lactated Ringers 1,000 ML 80 ML IV (07:54)
--- NOTE | 2022-01-19 09:25 | W.ANESPRE ---
General Info Date of Service Date Performed: 01/19/22 Height: 5 ft 5 in Weight: 96.7 kg Body Mass Index (BMI): 35.4 Surgical Procedure: Operation Date: 01/19/22 10:25 Proposed Procedure Side Surgeon p Knee Manipulation of Knee Right Reyes Monet MD Meds Allergies and Home Medications Allergies Allergy/AdvReac Type Severity Reaction Status Date / Time oxycodone Allergy Verified 01/19/22 07:32 Home Medication Medication Instructions Recorded sertraline 25 mg tablet 25 mg PO DAILY #90 tab-caps 06/14/21 propafenone 225 mg 225 mg PO Q12H #180 caps 08/13/21 capsule,extended release 12 hr estradiol 10 mcg vaginal tablet 10 mcg vaginal 2 times weekly #24 08/16/21 (Yuvafem) tab-caps clonazepam 1 mg tablet 1 mg PO QHS PRN insomnia #30 tabs 08/22/21 famotidine 20 mg tablet (Pepcid) 20 mg PO HS 11/01/21 acetaminophen 500 mg tablet 1,000 mg PO Q8H PRN PRN #180 tabs 11/23/21 (Acetaminophen Extra Strength) aspirin 81 mg tablet,delayed 81 mg PO BID #60 tabs 11/23/21 release pantoprazole 40 mg tablet,delayed 40 mg PO DAILY #30 tabs 11/23/21 release apixaban 5 mg (74 tabs) tablets in 5 mg PO ONCE #74 dose pk 12/23/21 a dose pack celecoxib 200 mg capsule 200 mg PO BID PRN pain #60 caps 01/07/22 hydrocodone 5 mg-acetaminophen 325 1 tab PO BID PRN pain #8 tabs 01/07/22 mg tablet Current Visit Medications: Current Medications Generic Name Dose Route Start Last Admin Trade Name Freq PRN Reason Stop Dose Admin Ringer's Solution 1,000 mls @ 80 mls/hr 01/19/22 06:00 01/19/22 07:54 IV 02/17/22 23:59 80 mls/hr INFUSION JORGE LUIS Administration Cefazolin Sodium 2,000 mg/ 100 mls @ 200 mls/hr 01/19/22 06:00 Sodium Chloride IVPB 01/19/22 16:00 PREOP JORGE LUIS IV Miscellaneous Supplies 1 each 01/19/22 06:00 Iv Access IV 02/17/22 23:59 DIRECTED JORGE LUIS Sodium Chloride 0 ml 07/20/22 06:00 Normal Saline Flush 10 Ml Syr IV 02/17/22 23:59 PRN PRN Sodium Chloride 0 ml 01/19/22 06:00 Normal Saline 10 Ml Vial IJ 02/17/22 23:59 DIRECTED PRN Sterile Water 0 ml 01/19/22 06:00 Water,Injection,Sterile 10 Ml Vial IJ 02/17/22 23:59 DIRECTED PRN PFSH Active Problems Active Problems: Problem Status Onset Code Acromioclavicular joint arthritis M19.90 Anxiety and depression 01/15/14 F41.9, F32.9 Atrial fibrillation I48.91 Atrophic vaginitis 11/02/17 N95.2 Gastritis K29.70 Hiatal hernia K44.9 Irritable colon K58.9 Partial tear of right rotator cuff 01/01/16 M75.111 Posterior vitreous detachment 07/14/14 H43.819 Shoulder pain, left 07/08/14 M25.512 Tinnitus H93.19 Annual physical exam Z00.00 Cerumen impaction H61.20 History of total right knee replacement Z96.651 Arthrofibrosis of total knee arthroplasty T84.82XA Medical History Medical History Anxiety Atrial fibrillation F/U with cardiology @ [facility] [place]. Dr. Hwang 04/2021 Depression DVT (deep venous thrombosis) Per pt. stated this was found 3 weeks ago is currently being tx with Chana ANDREW aware. GERD (gastroesophageal reflux disease) H. pylori infection (04/07/16) Hiatal hernia Menopausal disorder (07/08/14) Microscopic hematuria Rotator cuff tendonitis Medical History Comments:: Per pt. states when she is intubated they have a very hard time placing the tube Surgical History Surgical History Arthroscopy, Shoulder 10/06/15; RIGHT Augmentation mammoplasty B/L IMPLANTS Cystoscopy Hysterectomy, Laproscopic (~2007) FA STRESS TEST (~03/2011) NORMAL Tobacco Smoking/Tobacco Use Status: Never Passive smoking exposure: No Second hand exposure: No (CHILDHOOD EXPOSURE) Alcohol Alcohol Intake: current Alcohol intake frequency: a few times a week Alcohol type: hard liquor Substance Use Substance use: Never Substance use type: does not use Vital Signs and Lab Results Vital Signs Most Recent Vital Signs in EMR: Most Recent Vital Signs Temp Pulse Resp BP Pulse Ox 36.3 C L 72 16 136/79 99 01/19/22 07:21 01/19/22 07:21 01/19/22 07:21 01/19/22 07:21 01/19/22 07:21 Lab Results Blood Type / Crossmatch: No Data to Display Complete Blood Count: No Data to Display Complete Metabolic Panel: No Data to Display Liver Function Panel: No Data to Display Coagulation Panel: No Data to Display Cardiac Panel: No Data to Display Arterial Blood Gas: No Data to Display Venous Blood Gas: No Data to Display Pancreas Panel: No Data to Display Thyroid Panel: No Data to Display Infectious Disease: Coronavirus (COVID-19)(PCR) Negative (Negative) 01/17/22 09:50 Coronavirus 2019 Source Nasal/Nares 01/17/22 09:50 Blood Cultures: No Data to Display Toxicology Panel: No Data to Display Anesthesia Assessment and Plan Anesthesia History Personal History: Other Family History: No Family History of Anesthesia Complications Exercise Tolerance Exercise Tolerance: Metabolic Equivalents>4 Cardiac & Pulmonary Exam Cardiac Exam: Normal S1/S2 Heart Sounds Pulmonary Exam: Clear Bilateral Breath Sounds Implantable Cardiac Device Does patient have a Pacemaker or an ICD?: No Airway Exam Known Difficult Airway: No Mallampati Class: 1 Mouth Opening: Normal (> 3cm) Thyromental Distance: Greater than 3 cm Neck Range of Motion: Full ROM Neck Circumference: Normal Teeth Condition: Normal Dentition ASA Classification ASA Score: ASA 2 Emergency Case?: No NPO Status NPO Status: NPO Clears >2 hours, Solids >8 hours Anesthesia Plan Resuscitation Status: Full Code Anesthesia Technique: General Anesthesia Airway Planned: Natural Airway Monitors Used: Standard Monitors
[2022-01-19 09:28] VITALS: BMI 35.4
[2022-01-19 09:45] VITALS: BP 151/80; PULSE 70; RESP 16; TEMP 36.7; O2SAT 99
--- NOTE | 2022-01-19 09:53 | HPE_ITS ---
Assessment and Plan Assessment and plan (1) Arthrofibrosis of total knee arthroplasty: Status: Acute Assessment and plan: Emilie is a 56-year-old who has arthrofibrosis of her right knee replacement. For this reason I offered manipulation under anesthesia. I discussed the risk of the procedure to include bleeding, pain, continued stiffness, fracture. Despite these risk, she elects to proceed. History of Present Illness History of Present Illness Chief Complaint: Right Knee Stiffness Narrative: Emilie is a 66-year-old who has arthrofibrosis of her right knee replacement. Due to the stiffness I recommended proceeding with manipulation under anesthesia of the right knee. Please see the previous office note for complete detailed history. She is here today for the procedure. She has had no changes to her medical profile. She is COVID-19 negative. Review of Systems All systems reviewed & are unremarkable except as noted in HPI and below PFSH All Active Problems Acromioclavicular joint arthritis (Chronic) Anxiety and depression (Chronic 01/15/14) Atrial fibrillation (Chronic) Atrophic vaginitis (Chronic 11/02/17) Gastritis (Chronic) 12/07/15-MILD; [employer] ZENG H. PYLORI INFECTION Hiatal hernia (Chronic) 3 cm 12/07/15 DR. ZEPEDA 11/03/20 [facility] Irritable colon (Chronic) Partial tear of right rotator cuff (Chronic 01/01/16) Posterior vitreous detachment (Chronic 07/14/14) Shoulder pain, left (Chronic 07/08/14) Tinnitus (Chronic) Annual physical exam (Acute) Cerumen impaction (Acute) History of total right knee replacement (Acute) DOS 11/23/21 Arthrofibrosis of total knee arthroplasty (Acute) Medical History Anxiety Atrial fibrillation F/U with cardiology @ [facility] [place]. Dr. Hwang 04/2021 Depression DVT (deep venous thrombosis) Per pt. stated this was found 3 weeks ago is currently being tx with Chana ANDREW aware. GERD (gastroesophageal reflux disease) H. pylori infection (04/07/16) Hiatal hernia Menopausal disorder (07/08/14) Microscopic hematuria Rotator cuff tendonitis Surgical History Arthroscopy, Shoulder 10/06/15; RIGHT Augmentation mammoplasty B/L IMPLANTS Cystoscopy Hysterectomy, Laproscopic (~2007) FA STRESS TEST (~03/2011) NORMAL Family History Father Colon cancer Essential hypertension Heart disease Hyperlipidemia Mother Essential hypertension Depression Brother Essential hypertension Heart disease Myocardial infarction Neoplasm LUNG Asthma Brother Diabetes Paternal Grandfather Diabetes Essential hypertension Maternal Grandmother Essential hypertension Depression Asthma Social History Smoking/Tobacco Use Status: Never Second Hand Exposure: No (CHILDHOOD EXPOSURE) Smoking risk assessment performed?: Yes Alcohol Intake: current Alcohol Intake frequency: a few times a week Alcohol type: hard liquor Drug use: Never Substance use type: does not use Caregiver/Support person: No Household members: spouse Housing: house Communication Needs: None Do you need help understanding health information?: Never Pets and animals: No Sexually active: Yes Do you think of yourself as: straight/heterosexual Current gender identity: female What is your relationship status?: How often do you talk on the phone with friends or family?: once per week How often do you get together with friends or relatives?: once per week How often do you attend anabaptist or islam services?: decline to answer Do you belong to any clubs or organized social groups?: yes Panel score (0-1 are the most socially isolated patients): 2 What type of physical activity do you participate in: walking and yoga Duration: 30-45 minutes/day Frequency: 3-4 times per week Yaneli/Jainism: Congregation Special yaneli needs: No Seatbelt use: always Helmet use: Yes Helmet use: sometimes Drive intox or ride w/intox drivers' cash clerk: No Do you feel safe at home: Yes Do you feel safe in your relationship?: Yes Meds Allergies and Home Medications Allergies Allergy/AdvReac Type Severity Reaction Status Date / Time oxycodone Allergy Verified 01/19/22 07:32 Home Medications Medication Instructions Recorded Confirmed Type sertraline 25 mg tablet 25 mg PO DAILY #90 tab-caps 06/14/21 01/19/22 Rx propafenone 225 mg 225 mg PO Q12H #180 caps 08/13/21 01/19/22 Rx capsule,extended release 12 hr estradiol 10 mcg vaginal tablet 10 mcg vaginal 2 times weekly #24 08/16/21 01/19/22 Rx (Yuvafem) tab-caps clonazepam 1 mg tablet 1 mg PO QHS PRN insomnia #30 tabs 08/22/21 01/19/22 Rx famotidine 20 mg tablet (Pepcid) 20 mg PO HS 11/01/21 01/19/22 History acetaminophen 500 mg tablet 1,000 mg PO Q8H PRN PRN #180 tabs 11/23/21 01/19/22 Rx (Acetaminophen Extra Strength) aspirin 81 mg tablet,delayed 81 mg PO BID #60 tabs 11/23/21 01/19/22 Rx release pantoprazole 40 mg tablet,delayed 40 mg PO DAILY #30 tabs 11/23/21 01/19/22 Rx release apixaban 5 mg (74 tabs) tablets in 5 mg PO ONCE #74 dose pk 12/23/21 01/19/22 Rx a dose pack celecoxib 200 mg capsule 200 mg PO BID PRN pain #60 caps 01/07/22 01/19/22 Rx hydrocodone 5 mg-acetaminophen 325 1 tab PO BID PRN pain #8 tabs 01/07/22 01/19/22 Rx mg tablet Exam Resp Auscultation: clear to auscultation bilaterally Cardio Rate: regular rate Rhythm: regular rhythm Results Last Vital Signs Temp 36.7 C 01/19/22 09:45 Pulse 70 01/19/22 09:45 Resp 16 01/19/22 09:45 BP 151/80 H 01/19/22 09:45 Pulse Ox 99 01/19/22 09:45
[2022-01-19 09:58] VITALS: BP 158/80; PULSE 74; RESP 16; TEMP 36.7; O2SAT 98
--- NOTE | 2022-01-19 10:00 | W.PM.DSUDISC ---
Discharge Plan Disposition Patient Disposition: HOME Condition: Good Discharge Details Reason For Visit: Right Knee Manipulation Attending Provider: Reyes Monet Primary Care Provider: Sharon Gore Home Meds and New Rx's Prescriptions: New hydromorphone 2 mg tablet 2 mg PO Q4H PRN (Reason: pain) Qty: 15 0RF Continued famotidine [Pepcid] 20 mg tablet 20 mg PO HS apixaban 5 mg (74 tabs) tablets,dose pack 5 mg PO ONCE Qty: 74 0RF Rx Instructions: Take 10mg twice a day for 7 days then 5mg twice a day. sertraline 25 mg tablet 25 mg PO DAILY Qty: 90 4RF propafenone 225 mg capsule,extended release 12 hr 225 mg PO Q12H Qty: 180 3RF estradiol [Yuvafem] 10 mcg tablet 10 mcg VG 2 times weekly Qty: 24 11RF clonazepam 1 mg tablet 1 mg PO QHS MDD 1 PRN (Reason: insomnia) Qty: 30 1RF Rx Instructions: use sparingly celecoxib 200 mg capsule 200 mg PO BID PRN (Reason: pain) Qty: 60 1RF aspirin 81 mg tablet,delayed release (DR/EC) 81 mg PO BID Qty: 60 0RF pantoprazole 40 mg tablet,delayed release (DR/EC) 40 mg PO DAILY Qty: 30 0RF acetaminophen [Acetaminophen Extra Strength] 500 MG tablet 1,000 mg PO Q8H PRN PRNQty: 180 3RF Discontinued hydrocodone-acetaminophen 5-325 mg tablet 1 tab PO BID MDD 10mg PRN (Reason: pain) Qty: 8 0RF Discharge Instructions Additional Instructions: Knee Manipulation Discharge Instructions Activity: You should begin moving as soon as possible. You may work on flexion but also equally maintain extension. You may bear weight as tolerated, using crutches only for support/comfort. You should apply ice to help with swelling and elevate when possible (especially in the first few days). Dressings: No dressings to remove. Medications: - Rarely does this require any stronger pain medications, but I did call in the stronger pain medications, Hydromorphone. - Recommend to take up to 1000mg of Acetaminophen (Tylenol) and 600mg of Ibuprofen (Advil) every 8 hours as needed. These larger strength tablets were called in but you also may use [id number]. Follow-up: 7-10 days Referrals: Reyes Monet MD [ [facility] STAFF PHYSICIAN] - Equipment/Supplies: Partial Weight Bearing Crutches Activity:: Activity as Tolerated Discharge Orders Discharge Orders: Discharge Order (Routine); Ordered 01/19/22 Ordered By: Reyes Monet DS: Diagnosis Discharge Diagnosis (1) Arthrofibrosis of total knee arthroplasty: Status: Acute
[2022-01-19] MEDS: Bupivacaine 0.25% Pres-Free 10 ML VIAL (10:13)
--- NOTE | 2022-01-19 10:27 | W.ANESNERVE ---
Nerve Block Single Injection Procedure Date and Time Date Performed: 01/19/22 Procedure Start: 09:55 Location Where Procedure Performed Procedure Location: Day Surgery Unit Reason Performed: Postoperative Analgesia Requesting Provider: Reyes Monet Timeout Performed Timeout Performed: Yes Monitoring Used ECG, Blood Pressure, SpO2 and See EMR for corresponding vital signs Sterility Sterility: Hand Hygiene, Surgical Cap, Surgical Mask, Sterile Gloves and Chlorhexidine Sedation Given During Procedure Sedation Given (Indicate Dose Given): Versed IV Dose:: 2mg Patient Mental Status Patient Mental Status: Sedate with meaningful communication Nerve Block 1st Nerve Block: Laterality: Right Block Type: Adductor Canal Needle / Catheter Used: 100mm SonoPlex II Local Anesthetic Bolus (Indicate Dose Given): Lidocaine used for local infiltration of skin, Injected in 3-5ml increments after negative blood aspiration and Bupivacaine 0.25% Dose:: 10mL Additives (Indicate Dose Given): None Ultrasound: Sterile probe cover and gel used Ultrasound Image Saved?: Yes Nerve Stimulator: Not Used Paresthesia: None Procedure Tolerated: No Complications Procedure Outcome: Successful Performed By: Daniela Rey
[2022-01-19 10:40] VITALS: BP 124/51; PULSE 67; RESP 16; TEMP 36.1; O2SAT 97
--- NOTE | 2022-01-19 11:08 | ROE_ITS ---
Date of service: 07/16/19 Time of Service: 07:47 Operative Note Operative Note DATE OF PROCEDURE: 01/19/22 PRE-OP DIAGNOSIS: Right Knee Arthrofibrosis s/p Replacement POST-OP DIAGNOSIS: same PROCEDURE: Right Knee Manipulation Under Anesthesia SURGEON: Reyes Monet ANESTHESIA TYPE: General:No Airway Refer to Anesthesia Record ESTIMATED BLOOD LOSS: 0 PATHOLOGY: none sent TOURNIQUET TIME: 0 COMPLICATIONS: None Patient was transported to: PACU Patient's condition: stable Indications: Emilie is a 66 year old female who is s/p knee replacement. Despite diligent work with physical therapy there has been continued stiffness. To assist with mobility, I offered a manipulation under anesthesia. I discussed the risks of the procedure to include bleeding, pain, recurrent stiffness, fracture. Despite these risks, she elects to proceed. Findings: Preoperative flexion = 95 Postoperative flexion = 120 Preoperative extension = 2 Postoperative extension = 2 Procedure Description: The patient is agreed in the preoperative holding area. Identity was confirmed and the correct side was identified and marked. The consent was reviewed the patient and signed. History and physical was updated. Emilie was taken back to the operating room. The right side was identified as the correct side. A timeout was performed for safe surgery. A general anesthetic was administered. The knee was then prepped with ChloraPrep and an intra-articular injection of 10 cc of 0.5% bupivacaine was administered. Once a muscle relaxant was fully on board manipulation was performed. Pre- manipulation range of motion was noted. A gentle manipulation was performed first into flexion using a very small lever arm and adding gentle and progressive pressure to the tibia. There is audible and palpable crepitus with improvement in range of motion. This was cycled and repeated multiple times. The leg was then brought into extension and gentle anterior posterior pressure was applied with a supported hand behind the proximal tibia and knee. This was brought back into flexion was once again manipulated with gentle and progressive pressure. Final range of motion numbers were recorded. A Band-Aid was applied to the injection site. She was awakened from anesthesia and taken to the PACU in stable condition.
[2022-01-19 11:10] VITALS: BP 132/59; PULSE 66; RESP 16; TEMP 36.5; O2SAT 96
[2022-01-19] MEDS: HYDROmorphone 2 MG TAB PO (11:11)
--- NOTE | 2022-01-19 11:30 | W.ANESPOSTOP ---
Postoperative Evaluation Date, Time and Location Date Performed: 01/19/22 Time Performed: 11:01 Patient Location: Day Surgery Unit Vital Signs Most Recent Imported Vital Signs: Most Recent Vital Signs Temp Pulse Resp BP Pulse Ox 36.1 C L 67 16 124/51 L 97 01/19/22 10:40 01/19/22 10:40 01/19/22 10:40 01/19/22 10:40 01/19/22 10:40 Pain Score Most Recent Pain Score: Most Recent Pain Score Pain Level 2 01/19/22 10:40 Assessment Mental Status: Awake (Alert & Oriented to Patient Baseline) Airway and Respiratory Function: Patent airway with normal (patient baseline) respiratory exam Cardiovascular Function: Hemodynamically Stable Hydration Status: Adequately Hydrated Nausea & Vomiting: No Nausea or Vomiting Pain: Pt. Denies Any Pain Peripheral Nerve Block: Patient did not receive a nerve block
== END 2022-01-19 11:53 | disposition home or self-care (01) ==
PROVIDERS: PCP Family Medicine; Visit Provider Student in an Organized Health Care Education/Training Program
PROC: (CPT 27570; principal; 2022-01-19 10:15)
DX: T84.82XA Fibrosis due to internal orthopedic prosthetic devices, implants and grafts, initial encounter (principal); Z96.651 Presence of right artificial knee joint
CPT/HCPCS: 27570; 76942; J1100; J2405; J2704

== ENCOUNTER → 2022-01-31 10:15 | Outpatient (BNVA) | payer MEDICARE, BC, SELFPAY | PROVIDERS: PCP Family Medicine; Referring Provider Family Medicine; Visit Provider Student in an Organized Health Care Education/Training Program | DX: Z47.1 Aftercare following joint replacement surgery (principal); Z96.651 Presence of right artificial knee joint ==

== ENCOUNTER 2022-03-03 11:07 | Outpatient (CLI) | payer MEDICARE, BC, SELFPAY ==
[2022-03-03 13:03] LABS: HCT 40.3 % (36.0-46.0); MCH 28.8 pg (27.0-33.0); MCHC 32.3 % (32.0-36.0); MCV 89 fL (80-95); MPV 10.6 fL (8.0-11.0); Platelet Count 317 10^3/uL (130-400); RBC 4.52 10^6/uL (3.93-5.22); RDW-SD 45.1 fL; WBC 5.25 10^3/uL (4.4-10.8)
[2022-03-03 13:34] LABS: ALT 23 U/L (14-59); AST 18 U/L (15-37); Alkaline Phosphatase 68 U/L (46-116); BUN 14 mg/dL (7-18); Bilirubin, Total 0.6 mg/dL (0.2-1.0); CREATININE 0.9 mg/dL (0.55-1.02); Calcium 10.4 mg/dL (8.5-10.1); Calculated LDL 141 mg/dL (<100); Chloride 104 mmol/L (98-107); Cholesterol 244 mg/dL (<200); Estimated GFR 70.51 (mL/min/1.73m2); Glucose 100 mg/dL (74-106); HDL Cholesterol 85 mg/dL (40-60); Potassium 4.6 mmol/L (3.5-5.1); Sodium 140 mmol/L (136-145); TSH (W/Ref FT4) 1.99 uIU/mL (0.36-3.74); Total Protein 7.5 g/dL (6.4-8.2); Triglyceride 94 mg/dL (<150)
== END 2022-03-03 11:08 | disposition home or self-care (01) ==
LOC: LOS 11:07
PROVIDERS: PCP Family Medicine; Visit Provider Family Medicine
DX: E78.5 Hyperlipidemia, unspecified (principal); R63.4 Abnormal weight loss; I48.0 Paroxysmal atrial fibrillation
CPT/HCPCS: 36415; 80053; 80061; 85027; 84443

== ENCOUNTER → 2022-03-11 09:24 | Outpatient (BNVA) | payer MEDICARE, BC, SELFPAY | PROVIDERS: PCP Family Medicine; Referring Provider Family Medicine; Visit Provider Student in an Organized Health Care Education/Training Program | DX: Z47.1 Aftercare following joint replacement surgery (principal); Z79.01 Long term (current) use of anticoagulants; Z96.651 Presence of right artificial knee joint ==

== ENCOUNTER → 2022-03-21 10:04 | Outpatient (CLI) | payer MEDICARE, BC, SELFPAY ==
--- NOTE | 2022-03-21 09:15 | DI.US_ITS ---
Exam(s) US LOWER EXTREMITY VENOUS RT EXAM: US LOWER EXTREMITY VENOUS RT CLINICAL HISTORY: PAIN, ?DVT,M79.604. h/o total knee replacement,z96.651. TECHNIQUE: Lower extremity venous ultrasound performed using grayscale, color-flow, and spectral Do ppler analysis. COMPARISON: US US LOWER EXTREMITY VENOUS RT from 12/23/2021 US POCUS EXAM from 01/19/2022 FINDINGS: The common femoral, femoral and popliteal veins demonstrate normal compressibility, augmentation, and color Doppler. The posterior tibial veins are patent. No saphenous vein thrombosis or other superfi cial venous thrombosis is seen. The thrombus previously noted in the proximal to mid posterior tibia l veins is no longer present. No hematoma or Hdez's cyst is seen. IMPRESSION: Negative lower extremity ultrasound. Previously noted posterior tibial vein thrombus has resolved. DATA REPOSITORY:
== END ==
PROVIDERS: PCP Family Medicine; Visit Provider Student in an Organized Health Care Education/Training Program
DX: M79.661 Pain in right lower leg (principal); Z96.651 Presence of right artificial knee joint
CPT/HCPCS: 93971

== ENCOUNTER 2022-11-29 10:41 | Outpatient (CLI) | payer MEDICARE, BC, SELFPAY ==
[2022-11-29 13:01] LABS: ALT 23 U/L (14-59); AST 20 U/L (15-37); Albumin 3.6 g/dL (3.4-5.0); Alkaline Phosphatase 74 U/L (46-116); Anion Gap 5.8 mmol/L (3-11); BUN 14 mg/dL (7-18); Bilirubin, Total 0.7 mg/dL (0.2-1.0); CO2 29.2 mmol/L (21.0-32.0); CREATININE 0.9 mg/dL (0.55-1.02); Calculated LDL 117 mg/dL (<100); Chloride 105 mmol/L (98-107); Cholesterol 217 mg/dL (<200); Estimated GFR 70.51 (mL/min/1.73m2); Glucose 124 mg/dL (74-106); HDL Cholesterol 83 mg/dL (40-60); Sodium 140 mmol/L (136-145); Total Protein 7.1 g/dL (6.4-8.2); Triglyceride 88 mg/dL (<150); Vitamin B12 445 pg/mL (193-986)
== END 2022-11-29 10:42 | disposition home or self-care (01) ==
LOC: LOS 10:41
PROVIDERS: PCP Family Medicine; Referring Provider Family Medicine; Visit Provider Family Medicine
DX: I48.91 Unspecified atrial fibrillation (principal); K29.70 Gastritis, unspecified, without bleeding; K44.9 Diaphragmatic hernia without obstruction or gangrene
CPT/HCPCS: 36415; 80053; 80061; 82607

== ENCOUNTER 2022-12-01 09:08 | Outpatient (CLI) | payer MEDICARE, BC, SELFPAY ==
--- NOTE | 2022-12-01 09:00 | DI.RAD_ITS ---
Exam(s) XR KNEE LT 3V AP,LAT,ADITYA EXAM: XR KNEE LT 3V AP,LAT,ADITYA CLINICAL HISTORY: LEFT KNEE PAIN. TECHNIQUE: 2D digital imaging was performed. COMPARISON: CR XR STANDING ALIGNMENT from 12/09/2021 CR XR KNEE RT 2V AP,LAT from 12/01/2022 FINDINGS: 3 views No evidence of acute fracture nor obvious joint effusion. Mild the medial joint space. Osteophytic density adjacent to the outer aspect of the medial femoral condyle is related to the MCL possibly ind icating prior avulsion injury at this level. There is no prominent soft tissue swelling at this leve l. This findings unchanged from December 2021. IMPRESSION: Mild-moderate degenerative changes medial compartment. No joint effusion. DATA REPOSITORY: RADIATION DOSE DELIVERED:
--- NOTE | 2022-12-01 09:00 | DI.RAD_ITS ---
Exam(s) XR KNEE RT 2V AP,LAT EXAM: XR KNEE RT 2V AP,LAT CLINICAL HISTORY: ANNUAL F/U R TKA. TECHNIQUE: 2D digital imaging was performed. COMPARISON: CR XR KNEE RT 1V from 12/09/2021 FINDINGS: Two views Satisfactory position alignment components of the prosthesis. No fractures evident. No obvious loos ening. IMPRESSION: Satisfactory appearance. DATA REPOSITORY: RADIATION DOSE DELIVERED:
== END 2022-12-01 09:09 | disposition home or self-care (01) ==
PROVIDERS: PCP Family Medicine; Referring Provider Family Medicine; Visit Provider Student in an Organized Health Care Education/Training Program
DX: Z96.651 Presence of right artificial knee joint (principal); T84.82XA Fibrosis due to internal orthopedic prosthetic devices, implants and grafts, initial encounter; M17.12 Unilateral primary osteoarthritis, left knee; M70.52 Other bursitis of knee, left knee
CPT/HCPCS: 73562; 99213; 73560

== ENCOUNTER 2023-01-06 00:41 | Outpatient (CLI) | payer MEDICARE, BC, SELFPAY ==
--- NOTE | 2023-01-06 10:19 | DI.DEXA_ITS ---
Exam(s) XR DEXA BONE DENSITY W/WO CHASE EXAM: XR DEXA BONE DENSITY W/WO CHASE CLINICAL HISTORY: post menopausal, SCREENING, Z78.0 TECHNIQUE: [employer] C densitometer analysis of left hip, lumbar spine and left forearm. Lat eral survey image of the thoracic and lumbar spine. COMPARISON: CR LUMBAR SPINE COMPLETE from 01/27/2011 FINDINGS: Lateral view of the thoracic and lumbar spine shows no evidence of compression fractures. Bone mineral density measurements of the lumbar spine correspond to a total T-score of 2.4, in the n ormal range. Bone mineral density measurements of the left hip correspond to a total T-score of 0.5. The femoral neck T-score is -0.9, in the normal range.. Theleft forearm bone mineral density measurements correspond to a T-score of the distal 3rd of -0.5, in the normal range.. IMPRESSION: Normal bone mineral density.
== END 2023-01-06 01:01 ==
LOC: DI 00:41
PROVIDERS: PCP Family Medicine; Visit Provider Family Medicine
DX: Z78.0 Asymptomatic menopausal state (principal); Z13.820 Encounter for screening for osteoporosis
CPT/HCPCS: 77080

== ENCOUNTER 2023-01-31 10:25 | Day surgery (SDC) | payer MEDICARE, BC, SELFPAY ==
[2023-01-31] VITALS (8 sets, daily range): BP systolic 98–141; BP diastolic 51–88; PULSE 54–71; RESP 12–17; TEMP 36.1–36.5; O2SAT 94–96; BMI 34.9
--- NOTE | 2023-01-31 09:31 | ANES.PREOP_ITS ---
General Info Date of Service Date Performed: 01/31/23 Height: 5 ft 5 in Weight: 95.254 kg Body Mass Index (BMI): 34.9 Surgical Procedure: Operation Date: 01/31/23 13:40 Proposed Procedure Side Surgeon p Knee Arthroscopy Synovectomy Right Reyes Monet MD Meds Allergies and Home Medications Allergies Allergy/AdvReac Type Severity Reaction Status Date / Time oxycodone Allergy Verified 01/31/23 10:39 Home Medication Medication Instructions Recorded acetaminophen 500 mg tablet 1,000 mg PO Q8H PRN PRN #180 tabs 11/23/21 (Acetaminophen Extra Strength) sertraline 50 mg tablet 50 mg PO DAILY #90 tab-caps 07/04/22 estradiol 10 mcg vaginal tablet 10 mcg vaginal 2 times weekly #24 08/29/22 (Yuvafem) tab-caps propafenone 225 mg 225 mg PO Q12H #180 caps 09/01/22 capsule,extended release 12 hr famotidine 20 mg tablet 20 mg PO BID PRN gastric reflux 11/29/22 #180 tabs clonazepam 1 mg tablet 1 mg PO QHS PRN insomnia #30 tabs 01/30/23 apixaban 5 mg tablet (Eliquis) mg 01/31/23 Current Visit Medications: Current Medications Generic Name Dose Route Start Last Admin Trade Name Freq PRN Reason Stop Dose Admin Acetaminophen 1,000 mg 01/31/23 06:00 Acetaminophen 500 Mg Tab PO 03/02/23 05:59 PREOP JORGE LUIS Celecoxib 400 mg 01/31/23 06:00 Celecoxib 200 Mg Cap PO 03/02/23 05:59 PREOP JORGE LUIS Gabapentin 300 mg 01/31/23 06:00 Gabapentin 300 Mg Cap PO 03/02/23 05:59 PREOP JORGE LUIS Ringer's Solution 1,000 mls @ 80 mls/hr 01/31/23 06:00 IV 03/01/23 23:59 INFUSION JORGE LUIS Cefazolin Sodium/Dextrose 2 gm in 50 mls @ 100 mls/hr 01/31/23 06:00 Ancef Duplex IVPB 01/31/23 16:00 PREOP JORGE LUIS IV Miscellaneous Supplies 1 each 01/31/23 06:00 Iv Access IV 03/01/23 23:59 DIRECTED JORGE LUIS Sodium Chloride 0 ml 01/31/23 06:00 Normal Saline Flush 10 Ml Syr IV 03/01/23 23:59 PRN PRN Sodium Chloride 0 ml 01/31/23 06:00 Normal Saline 10 Ml Vial IJ 03/01/23 23:59 DIRECTED PRN Sterile Water 0 ml 01/31/23 06:00 Water,Injection,Sterile 10 Ml Vial IJ 03/01/23 23:59 DIRECTED PRN PFSH Active Problems Active Problems: Problem Status Onset Code Acromioclavicular joint arthritis M19.90 Anxiety and depression 01/15/14 F41.9, F32.9 Atrial fibrillation I48.91 Atrophic vaginitis 11/02/17 N95.2 Gastritis K29.70 Hiatal hernia K44.9 Irritable colon K58.9 Partial tear of right rotator cuff 01/01/16 M75.111 Posterior vitreous detachment 07/14/14 H43.819 Shoulder pain, left 07/08/14 M25.512 Tinnitus H93.19 Annual physical exam Z00.00 Cerumen impaction H61.20 History of total right knee replacement Z96.651 Arthrofibrosis of total knee arthroplasty T84.82XA Weight loss R63.4 COVID-19 U07.1 Left knee DJD M17.12 Pes anserinus bursitis of left knee M70.52 Medical History Medical History Anesthesia Per pt. states she was always told to tell anesthesia that they have difficulty getting a tube down mt throat Anxiety Atrial fibrillation F/U with cardiology @ [facility] – [place], [place]. Dr. Hwang 04/2021 Depression DVT (deep venous thrombosis) Per pt. stated this was found 3 weeks ago is currently being tx with Chana ANDREW aware. GERD (gastroesophageal reflux disease) H. pylori infection (04/07/16) Hiatal hernia Menopausal disorder (07/08/14) Microscopic hematuria Rotator cuff tendonitis Medical History Comments:: Per pt. states she was always told to tell anesthesia that they have difficulty getting a tube down mt throat Surgical History Surgical History Arthroscopy, Shoulder 10/06/15; RIGHT Augmentation mammoplasty B/L IMPLANTS Cystoscopy Hx of hysterectomy STRESS TEST (~03/2011) NORMAL Tobacco Smoking/Tobacco Use Status: Never Passive smoking exposure: Yes Second hand exposure: Yes (CHILDHOOD EXPOSURE) Alcohol Alcohol Intake: current Alcohol intake frequency: a few times a week Alcohol type: hard liquor Substance Use Substance use: Never Substance use type: does not use Vital Signs and Lab Results Lab Results Blood Type / Crossmatch: No Data to Display Complete Blood Count: No Data to Display Complete Metabolic Panel: No Data to Display Liver Function Panel: No Data to Display Coagulation Panel: No Data to Display Cardiac Panel: No Data to Display Arterial Blood Gas: No Data to Display Venous Blood Gas: No Data to Display Pancreas Panel: No Data to Display Thyroid Panel: No Data to Display Infectious Disease: No Data to Display Blood Cultures: No Data to Display Toxicology Panel: No Data to Display Imaging and Studies Imaging and Studies Study information below may be from another EMR and interpreted by another provider. Please see original notes in EMR for more complete details. Echocardiogram Summary: Patient Name: LOBITO MALDONADO #: [id number]: ICU Ordering Provider: JM MILLER M.D. : ADM IN Primary Care Provider: KAELA HOPSON M.D., DCDate of Exam: 07/31/15ex: F : 6Age: 59 Exam(s) [id number] US:Echocardiogram Heart *[facility]* *[facility]* [address] [place] [address] Date of study: 07/31/2015 Transthoracic Echocardiography M-mode, complete 2D, complete spectral Doppler, and color Doppler *STUDY CONCLUSIONS* Summary: 1. Left ventricle: The cavity size was normal. Wall thickness was normal. Systolic function was normal. The estimated ejection fraction was 55-60%. Wall motion was normal; there were no regional wall motion abnormalities. 2. Right ventricle: The cavity size was normal. Wall thickness was normal. Systolic function was normal. *PATIENT PRESENTATION* Height: 165.1cm (65in ) S/D Pressure: 106 / 59 Weight: 96.2kg (211.6lb ) BSA: 2.14m^2 Test start time: 11:45 AM. Test stop time: 12:50 PM. ORDERING Jamie Mcgee MD REFERRING Jm Miller PERFORMING Unknown CUSTOMER SERVICE SUPERVISOR Rogelio Harrell PERFORMING [facility] *PROCEDURE DATA* Procedure information: [facility] INFO:[id number] This study was interpreted by [facility]. Pertinent images and digital data are archived for permanent storage and are available for subsequent review. No prior study was available for comparison. Study status: Routine. Transthoracic echocardiography. M-mode, complete 2D, complete spectral Doppler, and color Doppler. A Transthoracic Echocardiogram was performed. Scanning was performed from the parasternal, apical, subcostal, and suprasternal notch acoustic windows. Image quality was adequate. The study was technically limited due to poor acoustic window availability. Study completion: The patient tolerated the procedure well. There were no complications. *INDICATIONS AND HISTORY* Indications: Recurrent Afib *CARDIAC ANATOMY* Left ventricle: The cavity size was normal. Wall thickness was normal. Systolic function was normal. The estimated ejection fraction was 55-60%. Wall motion was normal; there were no regional wall motion abnormalities. Left ventricular diastolic function parameters were normal. Aortic valve: Trileaflet; normal thickness leaflets. Mobility was not restricted. Doppler: Transvalvular velocity was within the normal range. There was no stenosis. No regurgitation. VTI ratio of LVOT to aortic valve: 0.94. Valve area: 3cm^2(VTI). Indexed valve area: 1.4cm^2/m^2 (VTI). Peak velocity ratio of LVOT to aortic valve: 0.82. Valve area: 2.6cm^2 (Vmax). Indexed valve area: 1.2cm^2/m^2 (Vmax). Mean gradient: 2.6mm Hg (S). Peak gradient: 4.8mm Hg (S). Aorta: Aortic root: The aortic root was normal in size. Ascending aorta: The ascending aorta was normal in size. Mitral valve: Structurally normal valve. Mobility was not restricted. Doppler: Transvalvular velocity was within the normal range. There was no evidence for stenosis. No regurgitation. Valve area by pressure half-time: 4.4cm^2. Indexed valve area by pressure half-time: 2.1cm^2/m^2. Left atrium: Not well visualized. The atrium was normal in size. Right ventricle: The cavity size was normal. Wall thickness was normal. Systolic function was normal. Pulmonic valve: Doppler: Transvalvular velocity was within the normal range. There was no evidence for stenosis. No regurgitation. Peak gradient: 0.8mm Hg (S). Tricuspid valve: Structurally normal valve. Doppler: Transvalvular velocity was within the normal range. There was no evidence for stenosis. Trivial regurgitation. Pulmonary artery: Systolic pressure could not be accurately estimated. Right atrium: Not well visualized. The atrium was normal in size. Pericardium: There was no pericardial effusion. Systemic veins: Inferior vena cava: Not visualized. Baseline ECG: Normal sinus rhythm. *MEASUREMENT TABLES* 2D measurements Normal Left ventricle LV internal dimension, ED, chordal level, PLAX 50.6 mm 43-5 LV internal dimension, ES, chordal level, PLAX 32 mm 23- 3 Fractional shortening, chordal level, PLAX 37 % >29 LV posterior wall thickness, ED 8 mm ---- IVS/LVPW ratio, ED 1.2 <1.3 Ejection fraction 66.28 % ---- Stroke volume 80.6 ml ---- Stroke index 37.7 ml/m^2 ----- Volume, ED, MOD, 1-plane 57.7 ml ---- Ejection fraction, MOD, 1-plane 61 % ---- Volume index, ED, MOD, 1-plane 27 ml/m^2 ----- Ventricular septum Septal thickness, ED 9.3 mm ---- Aorta Root diameter, ED 26.8 mm ---- Left atrium Area ES, A4C 16.4 cm^2 8.8 Volume index, S 27.4 ml/m^2 ----- Right atrium Area, ES 18.5 cm^2 --- M-mode measurements Normal Left ventricle Volume, ED, Teichholz 96.3 ml ---- Volume, ES, Teichholz 42.8 ml ---- Ejection fraction, Teichholz *55.56 % 64-8 Volume index, ED, Teichholz 45 ml/m^2 ----- Volume index, ES, Teichholz 20 ml/m^2 ----- Aorta Root diameter, ED 30.1 mm 20-3 Doppler measurements Normal Left ventricle IVRT 100 ms 60-1 Ea, medial annulus, tissue Doppler 13 cm/s ---- E/Ea, medial annulus, tissue Doppler 3.62 ---- LVOT Peak velocity, S 89 cm/s ---- VTI, S 18.7 cm ---- Peak gradient, S 3.2 mm Hg ---- Mean gradient, S 1.8 mm Hg ---- Aortic valve Peak velocity, S 109 cm/s ---- Mean velocity, S 75 cm/s ---- Anesthesia Assessment and Plan Anesthesia History Personal History: Other Family History: No Family History of Anesthesia Complications Exercise Tolerance Exercise Tolerance: Metabolic Equivalents>4 Pertinent Negatives Pertinent Negatives: No Symptoms of GERD, No Major Cardiovascular Symptoms or Complaints, No Major Pulmonary Symptoms or Complaints and No History of CVA/TIA Cardiac & Pulmonary Exam Cardiac Exam: Normal S1/S2 Heart Sounds Pulmonary Exam: Clear Bilateral Breath Sounds Implantable Cardiac Device Does patient have a Pacemaker or an ICD?: No Airway Exam Known Difficult Airway: No Mallampati Class: 1 Mouth Opening: Normal (> 3cm) Thyromental Distance: Greater than 3 cm Neck Range of Motion: Full ROM Neck Circumference: Normal Teeth Condition: Normal Dentition ASA Classification ASA Score: ASA 2 Emergency Case?: No NPO Status NPO Status: NPO Clears >2 hours, Solids >8 hours Anesthesia Plan Resuscitation Status: Full Code Anesthesia Technique: General Anesthesia Airway Planned: LMA Monitors Used: Standard Monitors
[2023-01-31] MEDS: Acetaminophen 500 MG TAB 1000 MG PO (10:51)
[2023-01-31] MEDS: Gabapentin 300 MG CAP PO (10:51)
[2023-01-31] MEDS: Celecoxib 200 MG CAP 400 MG PO (10:52)
[2023-01-31] MEDS: Lactated Ringers 1,000 ML 80 ML IV (11:00)
--- NOTE | 2023-01-31 11:56 | W.PREOPHP ---
Assessment and Plan Assessment and plan (1) Arthrofibrosis of total knee arthroplasty: Status: Acute Assessment and plan: Emilie is a 67-year-old female with arthrofibrosis of the right knee. She has struggled with her pain and stiffness after knee replacement. There does not appear to be any other complication including infection or loosening. Therefore I recommended arthroscopic synovectomy. I reviewed this with her in detail. Please see the previous office note for complete detail visit. I once again reviewed the risk to include bleeding, infection, pain, stiffness, continued symptoms, need for repeat procedures. Despite these risk, she elects to proceed History of Present Illness History of Present Illness Chief Complaint: Right Knee Arthrofibrosis Narrative: Emilie is a 67-year-old female who has had ongoing pain and stiffness after right knee replacement. She has tried a host of options including manipulation anesthesia after the surgery but continues to be limited by pain and stiffness. Please see the previous office note for complete detailed history. She has no changes to her health history. She has had no recent illnesses were fully recovered from her most recent URI. No chest pain or shortness of breath. Review of Systems All systems reviewed & are unremarkable except as noted in HPI and below PFSH All Active Problems Acromioclavicular joint arthritis (Chronic) Anxiety and depression (Chronic 01/15/14) Atrial fibrillation (Chronic) Atrophic vaginitis (Chronic 11/02/17) Gastritis (Chronic) 12/07/15-MILD; [facility] INFE[facility] Hiatal hernia (Chronic) 3 cm 12/07/15 DR. ZEPEDA 11/03/20 [facility] Irritable colon (Chronic) Partial tear of right rotator cuff (Chronic 01/01/16) Posterior vitreous detachment (Chronic 07/14/14) Shoulder pain, left (Chronic 07/08/14) Tinnitus (Chronic) Annual physical exam (Acute) Cerumen impaction (Acute) History of total right knee replacement (Acute) DOS 11/23/21 Arthrofibrosis of total knee arthroplasty (Acute) Weight loss (Acute) COVID-19 (Acute) Onset-09/12/22 Left knee DJD (Acute) Pes anserinus bursitis of left knee (Acute) Medical History Anesthesia Per pt. states she was always told to tell anesthesia that they have difficulty getting a tube down mt throat Anxiety Atrial fibrillation F/U with cardiology @ [facility] [place] Hwang 04/2021 Depression DVT (deep venous thrombosis) Per pt. stated this was found 3 weeks ago is currently being tx with Chana ANDREW aware. GERD (gastroesophageal reflux disease) H. pylori infection (04/07/16) Hiatal hernia Menopausal disorder (07/08/14) Microscopic hematuria Rotator cuff tendonitis Surgical History Arthroscopy, Shoulder 10/06/15; RIGHT Augmentation mammoplasty B/L IMPLANTS Cystoscopy Hx of hysterectomy STRESS TEST (~03/2011) NORMAL Family History Father Colon cancer Essential hypertension Heart disease Hyperlipidemia Mother Essential hypertension Depression Brother Essential hypertension Heart disease Myocardial infarction Neoplasm LUNG Asthma Brother Diabetes Paternal Grandfather Diabetes Essential hypertension Maternal Grandmother Essential hypertension Depression Asthma Social History Smoking/Tobacco Use Status: Never Second Hand Exposure: Yes (CHILDHOOD EXPOSURE) Smoking risk assessment performed?: Yes Alcohol Intake: current Alcohol Intake frequency: a few times a week Alcohol type: hard liquor Drug use: Never Substance use type: does not use Caregiver/Support person: No Household members: spouse Housing: house Communication Needs: None Do you need help understanding health information?: Never Pets and animals: No Sexually active: Yes Do you think of yourself as: straight/heterosexual Current gender identity: female What is your relationship status?: How often do you talk on the phone with friends or family?: twice per week How often do you get together with friends or relatives?: once per week How often do you attend bahai or tenriism services?: 1-3 times per year Do you belong to any clubs or organized social groups?: yes Panel score (0-1 are the most socially isolated patients): 3 What type of physical activity do you participate in: walking and yoga Duration: 30-45 minutes/day Frequency: 3-4 times per week Yaneli/Sabianist: No preference Special yaneli needs: No Seatbelt use: always Helmet use: Yes Helmet use: sometimes Drive intox or ride w/intox skidder driver: No Do you feel safe at home: Yes Do you feel safe in your relationship?: Yes Meds Allergies and Home Medications Allergies Allergy/AdvReac Type Severity Reaction Status Date / Time oxycodone Allergy Verified 01/31/23 10:39 Home Medications Medication Instructions Recorded Confirmed Type acetaminophen 500 mg tablet 1,000 mg PO Q8H PRN PRN #180 tabs 11/23/21 01/31/23 Rx (Acetaminophen Extra Strength) sertraline 50 mg tablet 50 mg PO DAILY #90 tab-caps 07/04/22 01/31/23 Rx estradiol 10 mcg vaginal tablet 10 mcg vaginal 2 times weekly #24 08/29/22 01/31/23 Rx (Yuvafem) tab-caps propafenone 225 mg 225 mg PO Q12H #180 caps 09/01/22 01/31/23 Rx capsule,extended release 12 hr famotidine 20 mg tablet 20 mg PO BID PRN gastric reflux 11/29/22 01/31/23 Rx #180 tabs clonazepam 1 mg tablet 1 mg PO QHS PRN insomnia #30 tabs 01/30/23 01/31/23 Rx apixaban 5 mg tablet (Eliquis) mg 01/31/23 History Exam Resp Effort & Inspection: normal respiratory effort Auscultation: clear to auscultation bilaterally Cardio Rate: regular rate Rhythm: regular rhythm Results Last Vital Signs Temp 36.1 C L 01/31/23 10:44 Pulse 67 01/31/23 10:44 Resp 16 01/31/23 10:44 BP 141/88 H 01/31/23 10:44 Pulse Ox 96 01/31/23 10:44
[2023-01-31] MEDS: ceFAZolin 2 GM/50 ML BAG IVPB (12:11)
--- NOTE | 2023-01-31 12:39 | W.PM.DSUDISC ---
Date of service: 01/31/23 Time of Service: 12:39 Discharge Plan Disposition Patient Disposition: Home Condition: Good Discharge Details Reason For Visit: R knee arthroscopy Attending Provider: Reyes Monet Primary Care Provider: Sharon Gore Home Meds and New Rx's Prescriptions: New acetaminophen 500 mg tablet 1,000 mg PO TID Qty: 90 0RF hydrocodone-acetaminophen 5-325 mg tablet 1 tab PO Q6H PRN (Reason: pain) Qty: 6 0RF ibuprofen 600 mg tablet 600 mg PO TID PRN (Reason: pain) Qty: 90 0RF Continued famotidine 20 mg tablet 20 mg PO BID PRN (Reason: gastric reflux) Qty: 180 5RF sertraline 50 mg tablet 50 mg PO DAILY Qty: 90 4RF estradiol [Yuvafem] 10 mcg tablet 10 mcg VG 2 times weekly Qty: 24 11RF propafenone 225 mg capsule,extended release 12 hr 225 mg PO Q12H Qty: 180 3RF clonazepam 1 mg tablet 1 mg PO QHS MDD 1 PRN (Reason: insomnia) Qty: 30 1RF Rx Instructions: use sparingly Eliquis 5 mg tablet Patient Comments: TAKE ONE TABLET BY MOUTH TWO TIMES A DAY Discontinued acetaminophen [Acetaminophen Extra Strength] 500 MG tablet 1,000 mg PO Q8H PRN PRNQty: 180 3RF Discharge Instructions Additional Instructions: Knee Manipulation Discharge Instructions Activity: You should begin moving as soon as possible. You may work on flexion but also equally maintain extension. You may bear weight as tolerated, using crutches only for support/comfort. You should apply ice to help with swelling and elevate when possible (especially in the first few days). Dressings: The knee dressing may come down after 48 hours. You may shower and get the wound wet at that time. You should keep the wounds covered with a bandaid until follow-up. Medications: - Rarely does this require any stronger pain medications. - Recommend to take up to 1000mg of Acetaminophen (Tylenol) and 600mg of Ibuprofen (Advil) every 8 hours as needed. These larger strength tablets were called in but you also may use [id number]. Follow-up: 7-10 days Stand Alone Forms: [facility] Knee Arthroscopy Equipment/Supplies: Partial Weight Bearing Crutches Activity:: Activity as Tolerated Remove Dressings/Wound Care:: 72 hours Shower/Bathe:: 72 hours Diet:: As Tolerated Discharge Orders Discharge Orders: Discharge Order (Routine); Ordered 01/31/23 Ordered By: Jose Faye DS: Diagnosis Discharge Diagnosis (1) Arthrofibrosis of total knee arthroplasty: Status: Acute
[2023-01-31] MEDS: EPINEPHrine 30 MG/30 ML VIAL (12:42)
[2023-01-31] MEDS: Bupivacaine 0.5% Pres-Free 30 ML VIAL (12:48)
--- NOTE | 2023-01-31 13:33 | W.ANESPOSTOP ---
Postoperative Evaluation Date, Time and Location Date Performed: 01/31/23 Time Performed: 13:33 Patient Location: Day Surgery Unit Vital Signs Most Recent Imported Vital Signs: Most Recent Vital Signs Temp Pulse Resp BP Pulse Ox 36.3 C L 58 L 13 122/84 96 01/31/23 13:23 01/31/23 13:23 01/31/23 13:23 01/31/23 13:23 01/31/23 13:23 Pain Score Most Recent Pain Score: Most Recent Pain Score Pain Level 0 01/31/23 13:23 Assessment Mental Status: Awake (Alert & Oriented to Patient Baseline) Airway and Respiratory Function: Patent airway with normal (patient baseline) respiratory exam Cardiovascular Function: Hemodynamically Stable Hydration Status: Adequately Hydrated Nausea & Vomiting: No Nausea or Vomiting Pain: Pt. Denies Any Pain Peripheral Nerve Block: Patient did not receive a nerve block
--- NOTE | 2023-01-31 14:54 | ROE_ITS ---
Date of service: 01/31/23 Time of Service: 14:00 Operative Note Operative Note DATE OF PROCEDURE: 01/31/23 PRE-OP DIAGNOSIS: Arthrofibrosis of Knee Replacement - Right POST-OP DIAGNOSIS: same PROCEDURE: Arthroscopic Synovectomy of 3 Compartments with Manipulation - Right Knee SURGEON: Reyes Monet ANESTHESIA TYPE: General LMA/ETT Refer to Anesthesia Record ESTIMATED BLOOD LOSS: 0 PATHOLOGY: none sent COMPLICATIONS: None Patient was transported to: PACU Patient's condition: stable Indications: I have seen Emilie in clinic for symptoms of arthrofibrosis of the knee following knee replacement surgery. Nonoperative measures were exhausted but disability due to lack of motion persisted. I discussed knee arthroscopy with synovectomy with maniuplation with the patient. I reviewed the risks of the procedure to include, but not limited to, bleeding, infection, pain, continued stiffness, recurrence, blood clot. Despite these risks, the patient elected to proceed. Findings: Preoperative Range of Motion: Flexion: 105 Extension:0 Postoperative Range of Motion: Flexion:125 Extension:0 Procedure Description: Emilie was greeted in the preoperative holding area where the correct side was identified and marked. The consent was reviewed with the patient and signed. The history and physical was updated. All questions were answered. SHe was taken back to the operating room. The patient was placed into the supine position on the operating room table. All bony prominences were well padded. Prophylactic antibiotics in the form of Cefazolin were administered. Preoperative range of motion was assessed as 0 - 105. The right leg was then prepped with Chloraprep and draped in a standard fashion with stockinette and extremity drape. A timeout to confirm correct identity, side and site, pr ocedure, allergies, anesthesia, and medical concerns was performed. The leg was placed into a pneumatic leg baltazar, [id number]. A standard lateral portal was made at the lateral border of the patella tendon in line with the inferior pole of the patella, soft spot. The skin and deep tissue was incised sharply and the blunt trochar was inserted atraumatically. At this point had visualization of the femoral component. A superolateral portal was then established with spinal needle localization just superior and lateral to the patella. A knife was taken down through the skin and soft tissue to enter the knee joint. Starting in the superior compartment above the femoral component and anterior to the femur I released all scarring between the anterior femoral synovium and the overlying extensor mechanism. This was taken through all of any noticeable scar tissue until the superior patellar pouch was fully released and mobile. This was very tight in this area and releasing this tissue provided immedaiate improvement. This resection was carried out mostly with electrocautery as well as shaver. Once this was released fully from lateral to medial superiorly I then continue working down the lateral gutter. All scar tissue in the lateral gutter was released so there is normal space and movement between the capsular tissues and the edge of the femoral component and femur. This was taken down through the lateral gutter such that I was able to identify the polyethylene to its posterior corner. Once again, all scar tissue in this area was resected so the polyethylene was easily visible and there is no interposed tissue in the back or the polyethylene was identified. I think continue to work anteriorly. To continue the synovectomy from the lateral compartment to the anterior compartment into the medial compartment, I placed a medial portal under spinal needle localization. Once this was in place it became another working portal and I continued the synovectomy through the anterior compartment to the medial compartment. Once again, I freed up the medial gutter so I was able to visualize the polyethylene from the anterior posterior margins. There is no interposed tissue after full synovectomy was performed. Adhesions between the capsule and the femur were released. This was continued up the medial gutter until it met up with the releases performed previously in the superior compartment. Any remnant scar tissue from around the patella was then removed with a shaver and electrocautery. The arthroscope was brought back into the suprapatellar pouch and the leg was in full extension. The knee was thoroughly irrigated with the arthroscopic fluid on high flow and pressure. Inflow was stopped and excess fluid was removed. The leg was removed from the spider leg baltazar and manipulation was performed. I first push the knee into flexion and was able to obtain 125 degrees. The wounds were closed with 4-0 Nylon. 0.25% bupivacaine was injected around the portal sites and into the knee. The wounds were dressed with Xeroform, 4x4 gauze, ABD pad, Kerlix and an SHALINI wrap. A cryo-cuff was applied. The patient tolerated the procedure well and was returned to the Same Day Surgery area in a stable condition suffering no known complication..
== END 2023-01-31 14:50 | disposition home or self-care (01) ==
PROVIDERS: PCP Family Medicine; Visit Provider Student in an Organized Health Care Education/Training Program
PROC: (CPT 29870; principal; 2023-01-31 13:30)
DX: T84.82XA Fibrosis due to internal orthopedic prosthetic devices, implants and grafts, initial encounter (principal); Z96.651 Presence of right artificial knee joint
CPT/HCPCS: 29876; J0690; J1100; J2001; J2250; J2405; J2704

== ENCOUNTER → 2023-02-13 09:52 | Outpatient (BNVA) | payer MEDICARE, BC, SELFPAY | PROVIDERS: PCP Family Medicine; Referring Provider Family Medicine | DX: T84.82XA Fibrosis due to internal orthopedic prosthetic devices, implants and grafts, initial encounter (principal); Z96.651 Presence of right artificial knee joint ==

== ENCOUNTER 2023-02-15 05:49 | Inpatient (IN) | payer MEDICARE, BC, SELFPAY ==
[2023-02-15] VITALS (16 sets, daily range): BP systolic 115–169; BP diastolic 59–90; PULSE 77–104; RESP 15–25; TEMP 36.7–37.8; O2SAT 91–96
--- NOTE | 2023-02-15 06:00 | RT.EKG_ITS ---
APPROVED REPORT Exam: Resting ECG Reason for Exam: severe back pain Patient Location: E HR:87 bpm ECG Measurements Heart Rate [address] 177 P 55 QRSd 95 QRS -20 QT 322 T 12 QTc 387 Conclusion Sinus rhythm...normal P axis, V-rate 60- 99 Low voltage, precordial leads...precordial leads <1.0mV Consider anterior infarct...Q >30mS in V2-V5 sinus rhythm, left axis, normal intervals, flattened t waves laterally, consider partial LBBB
--- NOTE | 2023-02-15 06:00 | DI.CT_ITS ---
Exam(s) CT THORAX ABDOMEN CTA EXAM: CT THORAX ABDOMEN CTA CLINICAL HISTORY: aortic dis/aneur v PE v intrabdominal path. TECHNIQUE: Imaging Protocol: Axial CT angiography was performed with multi-slice acquisition and mu lti-planar and/or 3D reconstructions. CONTRAST MATERIAL: Intravenous: Omnipaque 350 Contrast volume:100 ml COMPARISON: CT CHEST FOR PULMONARY EMBOLUS from 01/15/2013 FINDINGS: CHEST: Pulmonary Arteries: Emboli seen in bilateral lower lobe branches. Embolus a seen in a right upper lo be branches. Tracheobronchial tree: No bronchiectasis or mucus plugging. Mediastinum and Taylor: No dominant adenopathy. Small amount of fluid in esophagus. Pulmonary parenchyma: Increased densities bilateral lung bases, left greater than right could represe nt pulmonary infarcts and/or atelectasis. Pleura: Small left pleural effusion. No pneumothorax. Heart: The heart is mildly dilated. No evidence of right heart strain. No coronary artery calcific ations are seen. Aorta: Ascending aorta 4.1 cm. Bones: Flowing osteophytes. Tubes, Catheters, and Lines: None. Soft tissues: Bilateral breast implants. ABDOMEN and PELVIS: Liver: Enlarged.. Hepatic steatosis.. Multiple cysts. Portal, Superior Mesenteric, and Splenic Veins: Unremarkable. Gallbladder and Biliary Tract: No radiodense calculus. No biliary dilatation. Pancreas: Normal density, no abnormal calcifications or inflammatory process. Spleen: Normal. Adrenals: No masses seen. Kidneys: Normal size, contour and axis. No radiodense stones. No obstructive uropathy. No masses seen . Retroaortic left renal vein. Vasculature: Abdominal portion non-dilated. Bowel: No obstruction or bowel wall thickening. Appendix is unremarkable. Diverticulosis. Peritoneal Cavity: No ascites, collection or mesenteric inflammatory response. Lymph Nodes: Within normal limits. Soft Tissues: Unremarkable. Bladder: Symmetric distention, no gross wall thickening. Reproductive Organs: Unremarkable as visualized. Lymph Nodes: Within normal limits. Bones: Unremarkable for age.. Reproductive Organs: Status post hysterectomy. IMPRESSION: 1. Bilateral lower lobe pulmonary emboli. Bibasilar densities could represent atelectasis and/or inf arcts. Right upper lobe embolus. 2. No acute abdominal or pelvic process. RADIATION DOSE DELIVERED: 1,188.71mGy.cm Total DLP 1,188.71mGy.cm Total DLP 1,188.71mGy.cm Total DLP DATA REPOSITORY: All CT scans at this facility are submitted to the National Radiology Data Registry (NRDR) Dose Index Registry (DIR) with the [employer] ([employer]). RADIATION OPTIMIZATION: All CT scans at this facility use at least one of these dose optimization te chniques: automated exposure control; mA and/or kV adjustment per patient size (includes targeted exa ms where dose is matched to clinical indication); or iterative reconstruction.
--- NOTE | 2023-02-15 06:15 | ED.GENADUL_ITS ---
Discharge Plan Disposition Patient Disposition: Admit to [facility] Condition: Stable Discharge Details Chief Complaint: Nk/Back Pain Clinical Impression: Pulmonary emboli, Embolism, pulmonary with infarction Primary Care Provider: Sharon Gore ED Provider: Ney Kunz Home Meds and New Rx's Prescriptions: No Action famotidine 20 mg tablet 20 mg PO BID PRN (Reason: gastric reflux) Qty: 180 5RF sertraline 50 mg tablet 50 mg PO DAILY Qty: 90 4RF estradiol [Yuvafem] 10 mcg tablet 10 mcg VG 2 times weekly Qty: 24 11RF propafenone 225 mg capsule,extended release 12 hr 225 mg PO Q12H Qty: 180 3RF clonazepam 1 mg tablet 1 mg PO QHS MDD 1 PRN (Reason: insomnia) Qty: 30 1RF Rx Instructions: use sparingly acetaminophen 500 mg tablet 1,000 mg PO TID Qty: 90 0RF ibuprofen 600 mg tablet 600 mg PO TID PRN (Reason: pain) Qty: 90 0RF Medical Decision Making 67-year-old female history of right lower extremity DVT remote triggered by orthopedic procedure, A-fib, hiatal hernia presents with severe back pain left- sided now rating to shoulder associated with pleuritic back discomfort, as well as nausea. No abdominal pain. Lungs clear bilaterally speaking full sentences, appears uncomfortable worse with deep breath, abdomen soft nontender nondistended, no midline spinal tenderness or paraspinal discomfort on palpation. Patient noted to be moderately hypertense and borderline tachycardic, EKG normal sinus rhythm left axis with what appears to be a partial left bundle branch block, clinical concern for aortic pathology such as aortic aneurysm versus early dissection versus PE versus atypical ACS versus pneumothorax versus pneumonia must also consider intra-abdominal pathology irr itating diaphragm radiating to shoulder such as early cholecystitis worsening hiatal hernia gastritis esophagitis. Will obtain stat EKG, screening labs, analgesia antiemetics, light fluid, stat CTA chest abdomen pelvis and attempt to visualize both aorta and pulmonary arteries as well as intra-abdominal organs. Disposition pending reassessment and results 7: 09 evidence of bilateral pulmonary emboli, including right lobar, and bilateral segmental with evidence of likely bilateral inferior pulmonary infarcts with resultant effusion; patient remains hemodynamically stable normotensive nontachycardic oxygen saturation in the mid 90s on room air; CT showing what appears to be enlarged RV concerning for right heart strain, negative troponin and BNP; bedside ultrasound concerning for popliteal DVT right side. Discussed images with radiology team, no evidence of right heart strain. Patient is PESI score 2 low risk as well as low risk Hestia criteria. 7: 27 upon reassessment of patient her pain has returned, oxygen saturation 91 to 94%. Have discussed options of outpatient management with Eliquis versus inpatient observation with patient. Given symptomatology clot burden and border line hypoxemia patient will be admitted for pain control cardiac monitoring echo and official bilateral lower extremity ultrasounds. HPI General Date/Time Provider Initiated Documentation: 02/15/23 05:59 . HPI Narrative: 67-year-old female history of right lower extremity DVT after orthopedic procedure, A-fib, hiatal hernia, presents with severe back pain left-sided now radiating shoulder that began this evening atraumatic in nature worse with deep breath associated with nausea Related Data Home Medications Medication Instructions Recorded Confirmed sertraline 50 mg tablet 50 mg PO DAILY #90 tab-caps 07/04/22 02/15/23 estradiol 10 mcg vaginal tablet 10 mcg vaginal 2 times weekly #24 08/29/22 02/15/23 (Yuvafem) tab-caps propafenone 225 mg 225 mg PO Q12H #180 caps 09/01/22 02/15/23 capsule,extended release 12 hr famotidine 20 mg tablet 20 mg PO BID PRN gastric reflux 11/29/22 02/15/23 #180 tabs clonazepam 1 mg tablet 1 mg PO QHS PRN insomnia #30 tabs 01/30/23 02/15/23 acetaminophen 500 mg tablet 1,000 mg PO TID #90 tabs 01/31/23 02/15/23 ibuprofen 600 mg tablet 600 mg PO TID PRN pain #90 tabs 01/31/23 02/15/23 Previous Rx's Medication Instructions Recorded sertraline 50 mg tablet 50 mg PO DAILY #90 tab-caps 07/04/22 estradiol 10 mcg vaginal tablet 10 mcg vaginal 2 times weekly #24 08/29/22 (Yuvafem) tab-caps propafenone 225 mg 225 mg PO Q12H #180 caps 09/01/22 capsule,extended release 12 hr famotidine 20 mg tablet 20 mg PO BID PRN gastric reflux 11/29/22 #180 tabs clonazepam 1 mg tablet 1 mg PO QHS PRN insomnia #30 tabs 01/30/23 acetaminophen 500 mg tablet 1,000 mg PO TID #90 tabs 01/31/23 ibuprofen 600 mg tablet 600 mg PO TID PRN pain #90 tabs 01/31/23 Allergies Allergy/AdvReac Type Severity Reaction Status Date / Time oxycodone Allergy Verified 02/15/23 05:58 General Stated Complaint: Nk/Back Pain DAYRON: 3 Review of Systems Narrative: Review of Systems Constitutional: negative Eyes: negative ENT: negative Cardiovascular: negative Respiratory: Pleuritic pain Gastrointestinal: Nausea : negative Musculoskeletal: Back pain Skin: negative Neurologic: negative Psych: negative PFSH All Active Problems (Updated 02/15/23 @ 07:39 by Ney Kunz MD) Pulmonary emboli (Chronic) Embolism, pulmonary with infarction (Acute) Acromioclavicular joint arthritis (Chronic) Anxiety and depression (Chronic 01/15/14) Atrial fibrillation (Chronic) Atrophic vaginitis (Chronic 11/02/17) Gastritis (Chronic) 12/07/15-MILD; Keith ZENG H. PYLORI INFECTION Hiatal hernia (Chronic) 3 cm 12/07/15 DR. ZEPEDA 11/03/20 [facility] Irritable colon (Chronic) Partial tear of right rotator cuff (Chronic 01/01/16) Posterior vitreous detachment (Chronic 07/14/14) Shoulder pain, left (Chronic 07/08/14) Tinnitus (Chronic) Annual physical exam (Acute) Cerumen impaction (Acute) History of total right knee replacement (Acute) DOS 11/23/21 Arthrofibrosis of total knee arthroplasty (Acute ~01/31/23) Weight loss (Acute) COVID-19 (Acute) Onset-09/12/22 Left knee DJD (Acute) Pes anserinus bursitis of left knee (Acute) Medical History Anesthesia Per pt. states she was always told to tell anesthesia that they have difficulty getting a tube down mt throat Anxiety Atrial fibrillation F/U with cardiology @ [facility] [place]. Dr. Hwang 04/2021 Depression DVT (deep venous thrombosis) Per pt. stated this was found 3 weeks ago is currently being tx with Chana ANDREW aware. GERD (gastroesophageal reflux disease) H. pylori infection (04/07/16) Hiatal hernia Menopausal disorder (07/08/14) Microscopic hematuria Rotator cuff tendonitis Surgical History Arthroscopy, Shoulder 10/06/15; RIGHT Augmentation mammoplasty B/L IMPLANTS Cystoscopy Hx of hysterectomy STRESS TEST (~03/2011) NORMAL Family History Father Colon cancer Essential hypertension Heart disease Hyperlipidemia Mother Essential hypertension Depression Brother Essential hypertension Heart disease Myocardial infarction Neoplasm LUNG Asthma Brother Diabetes Paternal Grandfather Diabetes Essential hypertension Maternal Grandmother Essential hypertension Depression Asthma Social History Smoking/Tobacco Use Status: Never Second Hand Exposure: Yes (CHILDHOOD EXPOSURE) Smoking risk assessment performed?: Yes Alcohol Intake: current Alcohol Intake frequency: a few times a week Alcohol type: hard liquor Drug use: Never Substance use type: does not use Caregiver/Support person: No Household members: spouse Housing: house Communication Needs: None Do you need help understanding health information?: Never Pets and animals: No Sexually active: Yes Do you think of yourself as: straight/heterosexual Current gender identity: female What is your relationship status?: How often do you talk on the phone with friends or family?: twice per week How often do you get together with friends or relatives?: once per week How often do you attend pentecostalism or worship services?: 1-3 times per year Do you belong to any clubs or organized social groups?: yes Panel score (0-1 are the most socially isolated patients): 3 What type of physical activity do you participate in: walking and yoga Duration: 30-45 minutes/day Frequency: 3-4 times per week Yaneli/Restoration: No preference Special yaneli needs: No Seatbelt use: always Helmet use: Yes Helmet use: sometimes Drive intox or ride w/intox solo truck driver: No Do you feel safe at home: Yes Do you feel safe in your relationship?: Yes Exam Narrative Exam Narrative: Physical Examination General: alert, awake, cooperative, appears uncomfortable HEENT: normocephalic, atraumatic; PERRL, EOM intact, conjunctiva normal; no nasal discharge; moist mucous membranes, oral and pharyngeal mucosa normal, tolerating secretions Neck: supple, trachea midline; full ROM Chest: normal to inspection Respiratory: normal respiratory effort, speaking in full sentences, clear to auscultation, no wheezing, rales or rhonchi Cardiac: regular rate, regular rhythm, S1S2 intact, no murmurs rubs or gallops; equal radial pulses GI: abdomen soft, non-tender, non-distended; no palpable mass or hepatosplenomegaly Back: No midline spinal tenderness or paraspinal muscular tenderness on palpation Skin: no lesions, rashes or trauma appreciated Neuro: AAOx3, normal speech, moving all extremities Extremities: No peripheral edema Psych: Appropriate mood and affect Course Vital Signs Vital signs: Vital Signs Temperature 36.9 C 02/15/23 05:52 Pulse 91 H 02/15/23 05:52 Respiratory Rate 18 02/15/23 05:52 Blood Pressure 143/72 H 02/15/23 05:52 Pulse Oximetry 96 02/15/23 05:52 Temperature 36.9 C 02/15/23 05:52 Temperature Source Oral 02/15/23 05:52 Pulse 91 H 02/15/23 05:52 Respiratory Rate 18 02/15/23 05:52 Respiratory Effort Normal 02/15/23 05:57 Blood Pressure 143/72 H 02/15/23 05:52 Blood Pressure Position Sitting 02/15/23 05:52 Pulse Oximetry 96 02/15/23 05:52 Oxygen Delivery Method Room Air 02/15/23 05:52 Oxygen Flow Rate 0 02/15/23 05:52
[2023-02-15] MEDS: Ondansetron 4 MG/2 ML VIAL IVP (06:21)
[2023-02-15 06:22] LABS: Abs Immature Grans 0.03 10^3/uL (0.0-0.06); Absolute Basophil Count 0.04 10^3/uL (0.0-0.2); Absolute Lymphocyte Count 1.47 10^3/uL (1.2-3.4); Absolute Monocyte Count 0.84 10^3/uL (0.1-0.8); Basophils % 0.3; Eosinophils % 0.9; HGB 12.6 g/dL (11.2-15.7); Immature Grans % 0.3; Lymphocytes % 12.6; MCH 28.3 pg (27.0-33.0); MCHC 31.5 % (32.0-36.0); MCV 90 fL (80-95); Monocytes % 7.2; Neutrophils % 78.7; Platelet Count 297 10^3/uL (130-400); RBC 4.46 10^6/uL (3.93-5.22); RDW 13.6 % (11.7-14.6); RDW-SD 45.5 fL; WBC 11.67 10^3/uL (4.4-10.8)
[2023-02-15] MEDS: fentaNYL 100 MCG/2 ML VIAL 50 MCG IVP (06:22)
[2023-02-15] MEDS: Normal Saline 1,000 ML 1000 ML IV (06:22)
[2023-02-15 06:25] LABS: Absolute Eosinophil Count 0.11 10^3/uL (0.0-0.7); Absolute Neutrophil Count 9.18 10^3/uL (1.2-6.7)
[2023-02-15 06:36] LABS: INR 0.9 (0.9-1.1); PTT Activated 28.1 sec (21.5-31.9); Prothrombin Time 9.3 sec (9.3-11.0)
[2023-02-15 06:44] LABS: ALT 18 U/L (14-59); AST 14 U/L (15-37); Albumin 3.5 g/dL (3.4-5.0); Alkaline Phosphatase 87 U/L (46-116); Anion Gap 10.6 mmol/L (3-11); BUN 9 mg/dL (7-18); Bilirubin, Total 1.1 mg/dL (0.2-1.0); CO2 27.4 mmol/L (21.0-32.0); CREATININE 0.8 mg/dL (0.55-1.02); Calcium 10.3 mg/dL (8.5-10.1); Chloride 104 mmol/L (98-107); Estimated GFR 80.71 (mL/min/1.73m2); Glucose 120 mg/dL (74-106); Magnesium 1.9 mg/dL (1.8-2.4); NT-proBNP 141 pg/mL (<300); Potassium 4.2 mmol/L (3.5-5.1); Sodium 142 mmol/L (136-145); Total Protein 7.5 g/dL (6.4-8.2); Troponin I < 50 ng/L (<or=60)
[2023-02-15] MEDS: Omnipaque 350 MG/ML 100 ML BTL IJ (06:46)
[2023-02-15] MEDS: Normal Saline - Diluent 50 ML VIAL IJ (06:47)
--- NOTE | 2023-02-15 07:08 | DI.VRAD_ITS ---
Addendum created by Beka Corcoran MD on 02/15/2023 7:12:42 AM EDT: The findings were verbally communicated via telephone conference with Ney Kunz at 7:12 AM EDT on 02/15/2023. The findings were acknowledged and understood. Initial report created on 02/15/2023 7:07:20 AM EDT: PROCEDURE INFORMATION: Exam: CTA Chest With Contrast CTA Abdomen With Contrast Exam date and time: 02/15/2023 6:36 AM Age: 67 years old Clinical indication: Left-sided; Abdominal pain; Localized; Left upper quadrant (luq); Prior surgery; Surgery date: 6+ months; Surgery type: Hysterectomy; Additional info: Aortic dis/aneur v pe v intrabdominal path TECHNIQUE: Imaging protocol: Computed tomographic angiography of the chest with contrast. Exam focused on the arteries. Computed tomographic angiography of the abdomen with contrast. Exam focused on the arteries. 3D rendering (Not supervised by radiologist): MIP and/or 3D reconstructed images were created by the technologist. Radiation optimization: All CT scans at this facility use at least one of these dose optimization techniques: automated exposure control; mA and/or kV adjustment per patient size (includes targeted exams where dose is matched to clinical indication); or iterative reconstruction. Contrast material: OMNI 350; Contrast volume: 100 ml; Contrast route: INTRAVENOUS (IV); COMPARISON: No relevant prior studies available. FINDINGS: VASCULATURE: Pulmonary arteries: Filling defects in bilateral lower lobe segmental pulmonary arteries and right middle lobe pulmonary artery, representing bilateral pulmonary emboli. Aorta: No aortic aneurysm. No aortic dissection. Celiac trunk and mesenteric arteries: No occlusion or significant stenosis. Renal arteries: No occlusion or significant stenosis. CHEST: Lungs: Bibasilar parenchymal opacities, likely pulmonary infarct. Pleural spaces: Small left pleural effusion. Heart: Unremarkable. No cardiomegaly. No pericardial effusion. Heart RV/LV ratio: RV/LV ratio is 0.92. ABDOMEN AND PELVIS: Liver: Multiple hepatic cysts, up to 1.8 cm. Gallbladder and bile ducts: Unremarkable. No calcified stones. No ductal dilation. Pancreas: Unremarkable. No mass. No ductal dilation. Spleen: Unremarkable. No splenomegaly. Adrenal glands: Unremarkable. No mass. Kidneys and ureters: Unremarkable. No solid mass. No hydronephrosis. Stomach and bowel: Unremarkable. No obstruction. No mucosal thickening. Appendix: The appendix is normal. Intraperitoneal space: Unremarkable. No free air. No significant fluid collection. Reproductive: The uterus is surgically absent. Lymph nodes: Unremarkable. No enlarged lymph nodes. Bones/joints: There are multilevel degenerative changes of the thoracolumbar spine. There is no acute osseous pathology. Soft tissues: Bilateral breast implants are in place. IMPRESSION: 1. Bilateral pulmonary emboli. No CT evidence of right-sided heart strain. 2. No evidence of thoracoabdominal aortic dissection or aneurysm. 3. Small left pleural effusion. Bibasilar parenchymal opacities, likely pulmonary infarct. 4. Post hysterectomy. 5. Degenerative changes. Dictated and Authenticated by: Beka Corcoran MD. Ordering:KRIS Brewster MD
--- NOTE | 2023-02-15 07:34 | DI.US_ITS ---
Exam(s) US EXTREMITY VENOUS BI EXAM: US EXTREMITY VENOUS BI CLINICAL HISTORY: active PEs, hx RLE DVT. TECHNIQUE: Bilateral lower extremity venous ultrasound performed using grayscale, color-flow, and sp ectral Doppler analysis. COMPARISON: No exams were available for comparison FINDINGS: The bilateral common femoral, femoral and popliteal veins demonstrate normal compressibility, augment ation, and color Doppler. The posterior tibial veins are patent. IMPRESSION: Right: Negative for DVT Left: Negative for DVT DATA REPOSITORY:
[2023-02-15 09:02] LABS: Source Nasal/Nares
[2023-02-15 09:36] LABS: COVID-19 PCR Negative (Negative)
[2023-02-15] MEDS: Normal Saline Flush 10 ML SYR IVP ×3 (10:00→18:44)
[2023-02-15] MEDS: Enoxaparin 100 MG/ML SYR SC ×2 (10:00→22:27)
[2023-02-15] MEDS: traMADol 50 MG TAB PO ×2 (10:00→13:32)
[2023-02-15] MEDS: Acetaminophen 325 MG TAB PO (10:34)
[2023-02-15 11:06] LABS: Troponin I < 50 ng/L (<or=60)
--- NOTE | 2023-02-15 13:17 | W.PM.HP.N ---
Date of service: 02/15/23 Time of Service: 13:18 Assessment and Plan Assessment and plan (1) Bilateral pulmonary embolism: Status: Acute Assessment and plan: Anticoagulate with enoxaparin. On discharge, will go home with apixaban. Echo w/o evidence of RV dyfunction. Monitor on tele. Check exercise oximetry prior to discharge. (2) Pulmonary infarct: Status: Acute Assessment and plan: Encourage IS. (3) Pleuritic pain: Status: Acute Assessment and plan: Treat with tylenol, toradol, norco prn. Encourage IS. (4) Hypercalcemia: Status: Acute Assessment and plan: Will give IVF - clinically dehydrated. Check PTH and vitamin D level. This is not a new problem and should be followed up as outpatient. (5) Discharge planning issues: Status: Acute Assessment and plan: Full code History of Present Illness History of Present Illness Chief Complaint: Back pain, shortness of breath, pain on inspiration Narrative: Ms Rey is a 67 year old female with PMHx of a prior DVT in setting of R TKR about a year ago, having completed 3 months of eliquis, as well as h/o Afib, not on anticoagulation, gastritis, anxiety with depression, who presented to [facility] ED c/o back pain, shortness of breath, and pain on inspiration. The symptoms started on Monday, 48 hrs ago, when then patient had noted L back, L shoulder pain, and shortness of breath. By yesterday evening, the pain was in the center of her back, and it hurt to take a deep breath. The patient had slept in the recliner for the last two nights because she could not lay flat due to pain. Of note, the patient did have a right knee arthroscopy on 01/31/23. Her ER workup revealed bilateral lower lobe pulmonary emboli with bibasilar densities c/w atelectasis or infarcts as well as a RUL embolus. She was initiated on enoxaparin. She did not have evidence of R heart strain per POCUS in the ER or per CT. She was hemodynamically stable. Her O2 sats were in the low 90s on RA. Hospitalist admission was requested. Review of Systems All systems reviewed & are unremarkable except as noted in HPI and below PFSH All Active Problems (Updated 02/15/23 @ 18:12 by Kelli Bruce MD) Discharge planning issues (Acute) Hypercalcemia (Acute) Pleuritic pain (Acute) Pulmonary infarct (Acute) Bilateral pulmonary embolism (Acute) Pulmonary emboli (Chronic) Embolism, pulmonary with infarction (Acute) Acromioclavicular joint arthritis (Chronic) Anxiety and depression (Chronic 01/15/14) Atrial fibrillation (Chronic) Atrophic vaginitis (Chronic 11/02/17) Gastritis (Chronic) 12/07/15-MILD; Keith ZENG H. PYLORI INFECTION Hiatal hernia (Chronic) 3 cm 12/07/15 DR. ZEPEDA 11/03/20 [facility] Irritable colon (Chronic) Partial tear of right rotator cuff (Chronic 01/01/16) Posterior vitreous detachment (Chronic 07/14/14) Shoulder pain, left (Chronic 07/08/14) Tinnitus (Chronic) Annual physical exam (Acute) Cerumen impaction (Acute) Arthrofibrosis of total knee arthroplasty (Acute ~01/31/23) Weight loss (Acute) COVID-19 (Acute) Onset-09/12/22 Left knee DJD (Acute) Pes anserinus bursitis of left knee (Acute) Medical History (Updated 02/15/23 @ 18:12 by Kelli Bruce MD) Anesthesia Per pt. states she was always told to tell anesthesia that they have difficulty getting a tube down mt throat Anxiety Atrial fibrillation F/U with cardiology @ [facility] [place]. Dr. Hwang 04/2021 Depression DVT (deep venous thrombosis) Per pt. stated this was found 3 weeks ago is currently being tx with Chana ANDREW aware. GERD (gastroesophageal reflux disease) H. pylori infection (04/07/16) Hiatal hernia Menopausal disorder (07/08/14) Microscopic hematuria Rotator cuff tendonitis STRESS TEST (~03/2011) NORMAL Surgical History (Updated 02/15/23 @ 18:12 by Kelli Bruce MD) Arthroscopy, Shoulder 10/06/15; RIGHT Augmentation mammoplasty B/L IMPLANTS Cystoscopy History of total right knee replacement DOS 11/23/21 Hx of colonoscopy Hx of hysterectomy S/P right knee arthroscopy Family History Father Colon cancer Essential hypertension Heart disease Hyperlipidemia Mother Essential hypertension Depression Brother Essential hypertension Heart disease Myocardial infarction Neoplasm LUNG Asthma Brother Diabetes Paternal Grandfather Diabetes Essential hypertension Maternal Grandmother Essential hypertension Depression Asthma Social History Smoking/Tobacco Use Status: Never Second Hand Exposure: Yes (CHILDHOOD EXPOSURE) Smoking risk assessment performed?: Yes Alcohol Intake: current Alcohol Intake frequency: a few times a week Alcohol type: hard liquor Drug use: Never Substance use type: does not use Caregiver/Support person: No Household members: spouse Housing: house Communication Needs: None Do you need help understanding health information?: Never Pets and animals: No Sexually active: Yes Do you think of yourself as: straight/heterosexual Current gender identity: female What is your relationship status?: How often do you talk on the phone with friends or family?: twice per week How often do you get together with friends or relatives?: once per week How often do you attend mandaeism or oriental orthodox services?: 1-3 times per year Do you belong to any clubs or organized social groups?: yes Panel score (0-1 are the most socially isolated patients): 3 What type of physical activity do you participate in: walking and yoga Duration: 30-45 minutes/day Frequency: 3-4 times per week Yaneli/Advent: No preference Special yaneli needs: No Seatbelt use: always Helmet use: Yes Helmet use: sometimes Drive intox or ride w/intox hog driver: No Do you feel safe at home: Yes Do you feel safe in your relationship?: Yes Meds Allergies and Home Medications Allergies Allergy/AdvReac Type Severity Reaction Status Date / Time oxycodone Allergy Verified 02/15/23 05:58 Home Medications Medication Instructions Recorded Confirmed Type sertraline 50 mg tablet 50 mg PO DAILY #90 tab-caps 07/04/22 02/15/23 Rx estradiol 10 mcg vaginal tablet 10 mcg vaginal 2 times weekly #24 08/29/22 02/15/23 Rx (Yuvafem) tab-caps propafenone 225 mg 225 mg PO Q12H #180 caps 09/01/22 02/15/23 Rx capsule,extended release 12 hr famotidine 20 mg tablet 20 mg PO BID PRN gastric reflux 11/29/22 02/15/23 Rx #180 tabs clonazepam 1 mg tablet 1 mg PO QHS PRN insomnia #30 tabs 01/30/23 02/15/23 Rx acetaminophen 500 mg tablet 1,000 mg PO TID #90 tabs 01/31/23 02/15/23 Rx ibuprofen 600 mg tablet 600 mg PO TID PRN pain #90 tabs 01/31/23 02/15/23 Rx Exam Narrative Exam Narrative: General: Pleasant middle-aged female who is A&Ox3, sitting up comfortably in bed Neurological: A&Ox3, no focal deficits Psychiatric: Appropriate speech pattern/content Skin: Visible skin intact HEENT: Atraumatic, normocephalic, EOMI, dry MM, clear oropharynx, no submandibular or cervical lymphadenopathy, no goiter or JVD Cardiovascular: RRR, no m/r/g Lungs: Diminished breath sounds B bases Gastrointestinal: soft, nontender, nondistended Genitourinary: deferred Extremities: no edema BLEs Results Imaging Additional studies: CTA abdomen: 1. Bilateral lower lobe pulmonary emboli.? Bibasilar densities could represent atelectasis and/or infarcts.? Right upper lobe embolus. 2. No acute abdominal or pelvic process.? Echo: LVEF 57%, no segmental wall motion abnormalities. RV is of normal size and normal systolic function. RVSP is 36 mmHg, R atrial pressure of 8 mmHg. No hemodynamically significant valvular abnormalities. Venous dopplers BLEs; Right: Negative for DVT Left: Negative for DVT EKG: HR 87, NSR, lateral T wave flattening. No acute ischemia Labs 02/15/23 06:15 02/15/23 06:15 Labs: Laboratory Results - last 24 hr 02/15/23 02/15/23 02/15/23 06:15 06:15 06:15 WBC 11.67 H RBC 4.46 Hgb 12.6 Hct 40.0 MCV 90 MCH 28.3 MCHC 31.5 L RDW 13.6 Plt Count 297 MPV 9.0 Immature Gran % 0.3 Neutrophils % 78.7 Lymphocytes % 12.6 Monocytes % 7.2 Eosinophils % 0.9 Basophils % 0.3 Nucleated RBC % 0.0 Absolute Neutrophils 9.18 H Absolute Lymphocytes 1.47 Absolute Monocytes 0.84 H Absolute Eosinophils 0.11 Absolute Basophils 0.04 PT 9.3 INR 0.9 APTT 28.1 Sodium 142 Potassium 4.2 Chloride 104 Carbon Dioxide 27.4 Anion Gap 10.6 BUN 9 Creatinine 0.8 Est GFR (CKD-EPI 2020) 80.71 Glucose 120 H Calcium 10.3 H Magnesium 1.9 Total Bilirubin 1.1 H AST 14 L ALT 18 Alkaline Phosphatase 87 Troponin I < 50 NT-Pro-B Natriuret Pep 141 Total Protein 7.5 Albumin 3.5 COVID-19 Source SARS-CoV-2 (PCR) 02/15/23 02/15/23 08:53 10:25 WBC RBC Hgb Hct MCV MCH MCHC RDW Plt Count MPV Immature Gran % Neutrophils % Lymphocytes % Monocytes % Eosinophils % Basophils % Nucleated RBC % Absolute Neutrophils Absolute Lymphocytes Absolute Monocytes Absolute Eosinophils Absolute Basophils PT INR APTT Sodium Potassium Chloride Carbon Dioxide Anion Gap BUN Creatinine Est GFR (CKD-EPI 2020) Glucose Calcium Magnesium Total Bilirubin AST ALT Alkaline Phosphatase Troponin I < 50 NT-Pro-B Natriuret Pep Total Protein Albumin COVID-19 Source Nasal/Nares SARS-CoV-2 (PCR) Negative Last Vital Signs Temp 37.8 C H 02/15/23 10:03 Pulse 95 H 02/15/23 10:03 Resp 20 02/15/23 10:03 BP 169/90 H 02/15/23 10:03 Pulse Ox 93 02/15/23 12:31 PAWSS Have you Been Recently Intoxicated or Drunk Within the Last 30 days?: No Have you Ever Experienced Previous Episodes of Alcohol Withdrawal?: No Have you ever Experienced Withdrawal Seizures?: No Have you ever Experienced Delirium Tremens(DT)s?: No Have you ever undergone Alcohol Rehabilitation Treatment (i.e, inpt ot outpatient treatment programs)?: No Have you ever Experienced Blackouts?: No Have you ever Combined Alcohol with other Downers within the last 90 days?: No Have you ever Combined Alcohol with any other Substance of Abuse during the last 90 days?: No Positive Blood Alcohol level on Presentation? [PCS.BAL]: No Evidence of Increased Autonomic Activity (i.e. HR>120, tremor, sweating, agitation, nausea)?: No Result: 0 Time Spent Time spent with Patient: 55-74 minutes Time was spent: preparing to see the patient(eg.review tests), obtaining and/or reviewing separately otained hiistory, ordering medications,tests, procedures, referring, communicating with other health workforce investment act career manager, indepentently interpreting results, counseling the patient and care coordination
[2023-02-15] MEDS: Acetaminophen 500 MG TAB 1000 MG PO ×2 (14:19→19:58)
[2023-02-15] MEDS: Ketorolac 15 MG/ML VIAL IVP (17:39)
[2023-02-15] MEDS: Lactated Ringers 1,000 ML 150 ML IV (18:36)
[2023-02-15] MEDS: HYDROcodone 5/Acetaminophen 325 TAB PO (18:42)
[2023-02-15] MEDS: Docusate Sodium 100 MG CAP PO (21:14)
[2023-02-15] MEDS: clonazePAM 1 MG TAB PO (22:27)
[2023-02-16] VITALS (8 sets, daily range): BP systolic 116–157; BP diastolic 70–86; PULSE 64–100; RESP 16–18; TEMP 36.7–37.7; O2SAT 90–95
[2023-02-16] MEDS: Refresh PLUS Eye Drops 0.4ml OU (02:00)
[2023-02-16] MEDS: HYDROcodone 5/Acetaminophen 325 TAB PO (06:41)
[2023-02-16 07:32] LABS: Abs Immature Grans 0.03 10^3/uL (0.0-0.06); Absolute Basophil Count 0.03 10^3/uL (0.0-0.2); Absolute Eosinophil Count 0.07 10^3/uL (0.0-0.7); Absolute Lymphocyte Count 1.12 10^3/uL (1.2-3.4); Absolute Neutrophil Count 6.97 10^3/uL (1.2-6.7); Basophils % 0.3; Eosinophils % 0.8; HCT 35.5 % (36.0-46.0); HGB 11.3 g/dL (11.2-15.7); Immature Grans % 0.3; Lymphocytes % 12.4; MCH 28.5 pg (27.0-33.0); MCHC 31.8 % (32.0-36.0); MCV 89 fL (80-95); MPV 9.5 fL (8.0-11.0); Monocytes % 8.9; Neutrophils % 77.3; Platelet Count 255 10^3/uL (130-400); RBC 3.97 10^6/uL (3.93-5.22); RDW 13.4 % (11.7-14.6); RDW-SD 44.6 fL; WBC 9.02 10^3/uL (4.4-10.8)
[2023-02-16 07:48] LABS: BUN 9 mg/dL (7-18); CREATININE 0.7 mg/dL (0.55-1.02); Calcium 10.1 mg/dL (8.5-10.1); Chloride 107 mmol/L (98-107); Estimated GFR 94.73 (mL/min/1.73m2); Glucose 107 mg/dL (74-106); Potassium 3.9 mmol/L (3.5-5.1); Sodium 142 mmol/L (136-145)
[2023-02-16 08:14] LABS: Vitamin D 25 Total 37.8 ng/mL (30-100)
[2023-02-16] MEDS: Acetaminophen 500 MG TAB 1000 MG PO ×2 (09:08→13:44)
[2023-02-16] MEDS: Sertraline 50 MG TAB PO (09:09)
[2023-02-16] MEDS: Acetaminophen 250 mg/Aspirin 250 mg/Caffeine 65 mg TAB 1 EACH PO (09:41)
[2023-02-16] MEDS: Enoxaparin 100 MG/ML SYR SC (10:46)
--- NOTE | 2023-02-16 16:13 | DSE_ITS ---
Date of service: 02/16/23 Time of Service: 16:13 DS: Diagnosis Discharge Diagnosis (1) Bilateral pulmonary embolism: Status: Acute (2) Pulmonary infarct: Status: Acute (3) Pleuritic pain: Status: Acute (4) Hypercalcemia: Status: Acute Discharge Plan Disposition Patient Disposition: Home Condition: Improving Discharge Details Reason For Visit: Bilateral PE Admit Date/Time: 02/15/23 07:34 Admit Provider: Kelli Bruce Attending Provider: Kelli Bruce Primary Care Provider: Sharon Gore [facility] Hospital Course: Ms Rey is a 67 year old female with PMHx of a provoked DVT about a year ago in setting of orthopedic surgery, no longer on anticoagulation at the time of presentation, as well as h/o Afib, gastritis, anxiety and depression, who was a patient on [facility] hospitalist service from 02/15/23 until 02/16/23 for bilateral lower lobe and RUL pulmonary emboli. The patient did not have an oxygen requirement beyond room air, was not tachycardic or hypotensive, but did have significant pleurisy. She was started on therapeutic enoxaparin and is being transitioned to eliquis on discharge. Her echocardiogram did not show evidence of right heart strain. Venous dopplers of BLEs are negative for a DVT. She did not have any arrhythmic events on telemetry. Her troponins were negative. Her pleuritic chest pain is a lot better today. She is being discharged home with scheduled tylenol, cautious as needed ibuprofen, prn hydrocodone/acetaminophen (getting a 5 day supply or 20 tabs as well as a prescription for narcan). She is being referred to outpatient hematology. It needs to be noted that the patient did have a right knee arthroscopy two weeks prior to this presentation. She is medically stable for discharge and is agreeable to discharge home today. Her eliquis is covered by her insurance with a copay of $19.44. The patient was advised to monitor for bleeding and to stay on a bowel regimen while taking hydrocodone-acetaminophen. Care for patient as well as completion of discharge summary on day of discharge took 60 minutes. Home Meds and New Rx's Prescriptions: New Eliquis 5 mg tablet See Rx Instructions .ROUTE .COMPLEX Qty: 72 0RF Rx Instructions: 10 mg PO BID x 6 days, then 5 mg PO BID hydrocodone-acetaminophen 5-325 mg Tablet 1 tab PO Q6H PRN MDD 20 mg of hydrocodone PRN (Reason: pain) Qty: 20 0RF docusate sodium [Colace] 100 mg Capsule 100 mg PO BID Qty: 60 0RF polyethylene glycol 3350 [Miralax] 17 gram/dose powder 17 g PO DAILY Qty: 238 0RF Rx Instructions: while taking hydrocodone naloxone [Narcan] 4 mg/actuation spray,non-aerosol 4 mg intranasal Q3M PRN (Reason: opioid overdose) Qty: 2 0RF Rx Instructions: spray 1 dose into ONE nostril; alternate nostrils w each dose until help arrives Continued famotidine 20 mg tablet 20 mg PO BID PRN (Reason: gastric reflux) Qty: 180 5RF sertraline 50 mg tablet 50 mg PO DAILY Qty: 90 4RF propafenone 225 mg capsule,extended release 12 hr 225 mg PO Q12H Qty: 180 3RF clonazepam 1 mg tablet 1 mg PO QHS MDD 1 PRN (Reason: insomnia) Qty: 30 1RF Rx Instructions: use sparingly acetaminophen 500 mg tablet 1,000 mg PO TID Qty: 90 0RF ibuprofen 600 mg tablet 600 mg PO TID PRN (Reason: pain) Qty: 90 0RF Discontinued estradiol [Yuvafem] 10 mcg tablet 10 mcg VG 2 times weekly Qty: 24 11RF Discharge Instructions Instructions: Hydrocodone/Acetaminophen (By mouth), Apixaban (By mouth), Naloxone (Into the nose), Pulmonary Embolism (DC) Additional Instructions: Return to the hospital with any fever, bleeding, chest pain, or shortness of breath. Follow up with your PCP in 1-2 weeks. Follow up with [facility] hematology. Your Estradiol was stopped as it could contribute to formation of blood clots. Avoid taking NSAIDs unless needed rarely for pain control. Referrals: HEMATOLOGY/ONC,[facility] [OTHER] - (bilateral PEs, recurrent VTE) Sharon Gore [place], [place] [Primary Care Provider] - Activity:: Activity as Tolerated Equipment/Supplies:: No Equipment Needed Diet:: As Tolerated Discharge Orders Discharge Orders: Discharge Order (Routine); Ordered 02/16/23 Ordered By: Kelli Bruce DS: Summary Time Spent with Patient providing and/or coordinating discharge services: Greater than 30 minutes Status at Discharge Functional status at discharge: independent ambulation Overall status at discharge: patient is progressing back to baseline Mental Status: mental status grossly normal Speech and Movement: speech and movement normal Mood: congruent mood Affect: normal affect Exam Narrative Exam Narrative: General: Pleasant middle-aged female who is A&Ox3, sitting up comfortably in bed HEENT: EOMI, MMM Cardiovascular: RRR, no m/r/g Lungs: CTAB Gastrointestinal: soft, nontender, nondistended Extremities: no edema BLEs Psych Mental Status: mental status grossly normal Speech and Movement: speech and movement normal Mood: congruent mood Affect: normal affect DS: Data Vitals/I&O Vitals and I&O: Vital Signs Temperature 37.3 C 02/16/23 15:13 Temperature Source Tympanic 02/16/23 15:13 Pulse 76 02/16/23 15:13 Pulse Rhythm Regular 02/16/23 15:40 Pulse 101 H 02/15/23 09:34 Respiratory Rate 17 02/16/23 15:13 Respiratory Effort Normal, Non-Labored 02/16/23 15:40 Respiratory Depth Normal 02/16/23 15:40 Respiratory Pattern Normal 02/16/23 15:40 Blood Pressure 118/71 02/16/23 15:13 Blood Pressure Mean 91 02/15/23 09:01 Blood Pressure Position Sitting 02/15/23 05:52 Pulse Oximetry 93 02/16/23 15:13 Oxygen Delivery Method Room Air 02/16/23 15:13 Oxygen Flow Rate 0 02/16/23 15:13 Pain Level 4 02/16/23 15:13 Intake & Output 02/15/23 02/16/23 02/16/23 23:59 11:59 23:59 Intake Total 997.5 / 997.5 Output Total 900 / 900 800 / 1400 600 / 1400 Balance -900 / 100 197.5 / -402.5 -600 / -402.5 Weight 98.903 kg Intake: IV 997.5 / 997.5 Output: Urine 900 / 900 800 / 1400 600 / 1400 Other: Urine Color Pale Yellow Yellow Yellow Urine Appearance Clear Clear Clear Urine Odor None None Voiding Methods Toilet Toilet Toilet Data Completed and Pending Completed studies during hospitalization [Text1]: CTA abdomen: 1. Bilateral lower lobe pulmonary emboli.? Bibasilar densities could represent atelectasis and/or infarcts.? Right upper lobe embolus. 2. No acute abdominal or pelvic process.? US venous BLEs: Right: Negative for DVT Left: Negative for DVT Echo: LVEF 57%, no segmental wall motion abnormalities. RV is of normal size with normal systolic function. Peak RVSP is 36 mmHg based on a right atrial pressure of 8 mmHg. Normal biatrial size. No hemodynamically significant valvular abnormalities. RVSP has increased from 18 mmHg from stress echo 01/05/2011. Otherwise, no changes. Labs on day of discharge: Labs from last 24 hours 02/16/23 02/16/23 02/16/23 06:26 06:26 06:26 WBC 9.02 RBC 3.97 Hgb 11.3 Hct 35.5 L MCV 89 MCH 28.5 MCHC 31.8 L RDW 13.4 Plt Count 255 MPV 9.5 Immature Gran % 0.3 Neutrophils % 77.3 Lymphocytes % 12.4 Monocytes % 8.9 Eosinophils % 0.8 Basophils % 0.3 Nucleated RBC % 0.0 Absolute Neutrophils 6.97 H Absolute Lymphocytes 1.12 L Absolute Monocytes 0.80 Absolute Eosinophils 0.07 Absolute Basophils 0.03 Sodium Potassium Chloride Carbon Dioxide Anion Gap BUN Creatinine Est GFR (CKD-EPI 2020) Glucose Calcium Magnesium 25-OH Vitamin D Total 37.8 Anti-Parathy Hormone Ab Pending 02/16/23 06:26 WBC RBC Hgb Hct MCV MCH MCHC RDW Plt Count MPV Immature Gran % Neutrophils % Lymphocytes % Monocytes % Eosinophils % Basophils % Nucleated RBC % Absolute Neutrophils Absolute Lymphocytes Absolute Monocytes Absolute Eosinophils Absolute Basophils Sodium 142 Potassium 3.9 Chloride 107 Carbon Dioxide 27.0 Anion Gap 8.0 BUN 9 Creatinine 0.7 Est GFR (CKD-EPI 2020) 94.73 Glucose 107 H Calcium 10.1 Magnesium 2.0 25-OH Vitamin D Total Anti-Parathy Hormone Ab PFSH All Active Problems (Updated 02/15/23 @ 18:12 by Kelli Bruce MD) Discharge planning issues (Acute) Hypercalcemia (Acute) Pleuritic pain (Acute) Pulmonary infarct (Acute) Bilateral pulmonary embolism (Acute) Pulmonary emboli (Chronic) Embolism, pulmonary with infarction (Acute) Acromioclavicular joint arthritis (Chronic) Anxiety and depression (Chronic 01/15/14) Atrial fibrillation (Chronic) Atrophic vaginitis (Chronic 11/02/17) Gastritis (Chronic) 12/07/15-MILD; Keith ZENG H. PYLORI INFECTION Hiatal hernia (Chronic) 3 cm 12/07/15 DR. ZEPEDA 11/03/20 [facility] Irritable colon (Chronic) Partial tear of right rotator cuff (Chronic 01/01/16) Posterior vitreous detachment (Chronic 07/14/14) Shoulder pain, left (Chronic 07/08/14) Tinnitus (Chronic) Annual physical exam (Acute) Cerumen impaction (Acute) Arthrofibrosis of total knee arthroplasty (Acute ~01/31/23) Weight loss (Acute) COVID-19 (Acute) Onset-09/12/22 Left knee DJD (Acute) Pes anserinus bursitis of left knee (Acute) Medical History (Updated 02/15/23 @ 18:12 by Kelli Bruce MD) Anesthesia Per pt. states she was always told to tell anesthesia that they have difficulty getting a tube down mt throat Anxiety Atrial fibrillation F/U with cardiology @ [facility]. Dr. Hwang 04/2021 Depression DVT (deep venous thrombosis) Per pt. stated this was found 3 weeks ago is currently being tx with Chana ANDREW aware. GERD (gastroesophageal reflux disease) H. pylori infection (04/07/16) Hiatal hernia Menopausal disorder (07/08/14) Microscopic hematuria Rotator cuff tendonitis STRESS TEST (~03/2011) NORMAL Surgical History (Updated 02/15/23 @ 18:12 by Kelli Bruce MD) Arthroscopy, Shoulder 10/06/15; RIGHT Augmentation mammoplasty B/L IMPLANTS Cystoscopy History of total right knee replacement DOS 11/23/21 Hx of colonoscopy Hx of hysterectomy S/P right knee arthroscopy Family History Father Colon cancer Essential hypertension Heart disease Hyperlipidemia Mother Essential hypertension Depression Brother Essential hypertension Heart disease Myocardial infarction Neoplasm LUNG Asthma Brother Diabetes Paternal Grandfather Diabetes Essential hypertension Maternal Grandmother Essential hypertension Depression Asthma Social History Smoking/Tobacco Use Status: Never Second Hand Exposure: Yes (CHILDHOOD EXPOSURE) Smoking risk assessment performed?: Yes Alcohol Intake: current Alcohol Intake frequency: a few times a week Alcohol type: hard liquor Drug use: Never Substance use type: does not use Caregiver/Support person: No Household members: spouse Housing: house Communication Needs: None Do you need help understanding health information?: Never Pets and animals: No Sexually active: Yes Do you think of yourself as: straight/heterosexual Current gender identity: female What is your relationship status?: How often do you talk on the phone with friends or family?: twice per week How often do you get together with friends or relatives?: once per week How often do you attend faith or evangelical services?: 1-3 times per year Do you belong to any clubs or organized social groups?: yes Panel score (0-1 are the most socially isolated patients): 3 What type of physical activity do you participate in: walking and yoga Duration: 30-45 minutes/day Frequency: 3-4 times per week Yaneli/Anabaptist: No preference Special yaneli needs: No Seatbelt use: always Helmet use: Yes Helmet use: sometimes Drive intox or ride w/intox interstate bus driver: No Do you feel safe at home: Yes Do you feel safe in your relationship?: Yes Time Spent with Patient Time Spent with Patient: 45-69 minutes Time was spent: preparing to see the patient(eg.review tests), obtaining and/or reviewing separately otained hiistory, ordering medications,tests, procedures, referring, communicating with other health acute care physical therapist, indepentently interpreting results, counseling the patient and care coordination
[2023-02-23 19:28] LABS: PTH AB NEGATIVE (NEGATIVE)
== END 2023-02-16 17:22 | disposition home or self-care (01) | DRG 176 ==
LOC: ER 07:39 → MS 09:45
PROVIDERS: Admitting Provider Internal Medicine; Emergency Provider Emergency Medicine; PCP Family Medicine; Visit Provider Internal Medicine
DX: I26.99 Other pulmonary embolism without acute cor pulmonale (principal); T84.82XA Fibrosis due to internal orthopedic prosthetic devices, implants and grafts, initial encounter; R07.81 Pleurodynia; E83.52 Hypercalcemia; Z86.718 Personal history of other venous thrombosis and embolism; I48.91 Unspecified atrial fibrillation; F41.8 Other specified anxiety disorders; K29.50 Unspecified chronic gastritis without bleeding; K44.9 Diaphragmatic hernia without obstruction or gangrene; K58.9 Irritable bowel syndrome, unspecified; N95.2 Postmenopausal atrophic vaginitis; K21.9 Gastro-esophageal reflux disease without esophagitis; M17.12 Unilateral primary osteoarthritis, left knee; Z96.651 Presence of right artificial knee joint
CPT/HCPCS: 36415; 71275; 74175; 80048; 80053; 82306; 83519; 87635; 93005; 94618; 99285; 83735; 83880; 84484; 85025; 85610; 85730; 93010; 93306; 93970; 94667; 94760; 99223; 99239; J1650; J1885; J2405; J3010; J3490

== ENCOUNTER → 2023-03-27 14:21 | Outpatient (BNVA) | payer MEDICARE, BC, SELFPAY | PROVIDERS: PCP Family Medicine; Visit Provider Student in an Organized Health Care Education/Training Program | DX: Z47.1 Aftercare following joint replacement surgery (principal); T84.82XA Fibrosis due to internal orthopedic prosthetic devices, implants and grafts, initial encounter; Z96.651 Presence of right artificial knee joint; Z98.890 Other specified postprocedural states ==

== ENCOUNTER → 2023-06-19 13:46 | Outpatient (BNVA) | payer MEDICARE, BC, SELFPAY | PROVIDERS: PCP Family Medicine; Visit Provider Student in an Organized Health Care Education/Training Program | DX: Z47.1 Aftercare following joint replacement surgery (principal); Z96.651 Presence of right artificial knee joint | CPT/HCPCS: 99213 ==

== ENCOUNTER 2023-12-28 11:00 | Outpatient (CLI) | payer MEDICARE, BC, SELFPAY ==
[2023-12-28 12:27] LABS: HCT 40.4 % (36.0-46.0); HGB 13.3 g/dL (11.2-15.7); MCH 29.3 pg (27.0-33.0); MCHC 32.9 % (32.0-36.0); MCV 89 fL (80-95); MPV 10.3 fL (8.0-11.0); Platelet Count 306 10^3/uL (130-400); RBC 4.54 10^6/uL (3.93-5.22); RDW 13.3 % (11.7-14.6); RDW-SD 43.7 fL; WBC 5.36 10^3/uL (4.4-10.8)
[2023-12-28 13:01] LABS: ALT 24 U/L (14-59); AST 16 U/L (15-37); Albumin 3.8 g/dL (3.4-5.0); Alkaline Phosphatase 79 U/L (46-116); Anion Gap 5.6 mmol/L (3-11); BUN 16 mg/dL (7-18); Bilirubin, Total 0.63 mg/dL (0.2-1.0); CO2 30.4 mmol/L (21.0-32.0); Calcium 10.6 mg/dL (8.5-10.1); Chloride 105 mmol/L (98-107); Estimated GFR 61.36 (mL/min/1.73m2); Glucose 102 mg/dL (74-106); Potassium 4.3 mmol/L (3.5-5.1); Sodium 141 mmol/L (136-145); Total Protein 7.5 g/dL (6.4-8.2)
[2023-12-28 18:49] LABS: Hepatitis C Ab w Rflx HCV PCR Negative (Negative)
== END 2023-12-28 11:01 | disposition home or self-care (01) ==
PROVIDERS: PCP Family Medicine; Referring Provider Family Medicine; Visit Provider Family Medicine
DX: Z00.00 Encounter for general adult medical examination without abnormal findings (principal); Z79.01 Long term (current) use of anticoagulants
CPT/HCPCS: 36415; 80053; 85027; 86803

== ENCOUNTER 2024-01-01 10:57 | Outpatient (CLI) | payer MEDICARE, BC, SELFPAY ==
--- NOTE | 2024-01-01 09:30 | DI.RAD_ITS ---
Exam(s) XR KNEE RT 2V AP,LAT EXAM: XR KNEE RT 2V AP,LAT CLINICAL HISTORY: ANNUAL F/U R TKA. TECHNIQUE: 2D digital imaging was performed. Two images were obtained. AP and lateral views were ob tained. COMPARISON: CR XR KNEE RT 2V AP,LAT from 12/01/2022 FINDINGS: BONES: There are stable post operative changes of a right total knee replacement present. No fractur e or dislocation. JOINTS: The orthopedic hardware is in good position. No evidence of hardware loosening. SOFT TISSUE: Normal. IMPRESSION: Stable right total knee replacement. DATA REPOSITORY: RADIATION DOSE DELIVERED:
== END 2024-01-01 10:58 | disposition home or self-care (01) ==
LOC: DIORS 10:57
PROVIDERS: PCP Family Medicine; Referring Provider Family Medicine; Visit Provider Student in an Organized Health Care Education/Training Program
DX: Z96.651 Presence of right artificial knee joint (principal); Z47.1 Aftercare following joint replacement surgery
CPT/HCPCS: 99213; 73560

== ENCOUNTER 2024-01-27 12:07 | Emergency (ER) | payer MEDICARE, BC, SELFPAY ==
[2024-01-27] VITALS (17 sets, daily range): BP systolic 145–161; BP diastolic 78–103; PULSE 73–99; RESP 10–22; TEMP 36.5; O2SAT 94–100
--- NOTE | 2024-01-27 12:00 | RT.EKG_ITS ---
APPROVED REPORT Exam: Resting ECG Reason for Exam: Possible Overdose Patient Location: E HR:87 bpm ECG Measurements Heart Rate 87 AXIS AL 152 P 66 QRSd 94 QRS -35 QT 300 T 176 QTc 362 Conclusion Sinus rhythm. 87 LAD no stemi
[2024-01-27 12:45] LABS: Abs Immature Grans 0.01 10^3/uL (0.0-0.06); Absolute Basophil Count 0.03 10^3/uL (0.0-0.2); Absolute Eosinophil Count 0.05 10^3/uL (0.0-0.7); Absolute Lymphocyte Count 1.52 10^3/uL (1.2-3.4); Absolute Monocyte Count 0.59 10^3/uL (0.1-0.8); Basophils % 0.4 %; Eosinophils % 0.7 %; HCT 41.3 % (36.0-46.0); HGB 13.3 g/dL (11.2-15.7); Immature Grans % 0.1 %; MCH 28.9 pg (27.0-33.0); MCHC 32.2 % (32.0-36.0); MCV 90 fL (80-95); MPV 9.5 fL (8.0-11.0); Monocytes % 7.8 %; Platelet Count 298 10^3/uL (130-400); RBC 4.61 10^6/uL (3.93-5.22); RDW 13.5 % (11.7-14.6)
[2024-01-27] MEDS: Ondansetron 4 MG/2 ML VIAL IVP (13:00)
[2024-01-27] MEDS: Normal Saline 1,000 ML 1000 ML IV (13:00)
[2024-01-27 13:03] LABS: ALT 23 U/L (14-59); AST 16 U/L (15-37); Albumin 3.8 g/dL (3.4-5.0); Alkaline Phosphatase 80 U/L (46-116); Anion Gap 9.1 mmol/L (3-11); BUN 8 mg/dL (7-18); Bilirubin, Total 1.05 mg/dL (0.2-1.0); CO2 27.9 mmol/L (21.0-32.0); Calcium 10.6 mg/dL (8.5-10.1); Chloride 105 mmol/L (98-107); Estimated GFR 61.36 (mL/min/1.73m2); Glucose 93 mg/dL (74-106); Lipase 22 U/L (16-77); Potassium 3.7 mmol/L (3.5-5.1); Sodium 142 mmol/L (136-145); Total Protein 7.3 g/dL (6.4-8.2)
--- NOTE | 2024-01-27 14:15 | ED.GENADUL_ITS ---
Discharge Plan Disposition Patient Disposition: Home Condition: Stable Discharge Details Clinical Impression: Accidental drug overdose, Nausea & vomiting Primary Care Provider: Sharon Gore ED Provider: Court Cruz Home Meds and New Rx's Prescriptions: New ondansetron 4 mg tablet,disintegrating 4 mg PO Q6H PRN (Reason: nausea and vomiting) Qty: 20 0RF ondansetron 4 mg tablet,disintegrating 4 mg PO Q6H PRN (Reason: nausea and vomiting) Qty: 20 0RF No Action famotidine 20 mg tablet 20 mg PO BID PRN (Reason: gastric reflux) Qty: 180 5RF sertraline 50 mg tablet 50 mg PO DAILY Qty: 90 4RF propafenone 225 mg capsule,extended release 12 hr 225 mg PO Q12H Qty: 180 3RF Eliquis 5 mg tablet 5 mg PO BID Qty: 180 5RF estradiol [Yuvafem] 10 mcg tablet 10 mcg VG 2 times weekly Qty: 24 11RF clonazepam 1 mg tablet 1 mg PO QHS MDD 1 PRN (Reason: insomnia) Qty: 30 1RF Rx Instructions: use sparingly tirzepatide 2.5 mg/0.5 mL pen injector 2.5 mg subcut QWEEK Qty: 6 4RF Rx Instructions: do not rx pen injector; Can be compounded acetaminophen 500 mg tablet 1,000 mg PO TID Qty: 90 0RF Discharge Instructions Instructions: Accidental Overdose Additional Instructions: * The half-life of the medication is 1 week, with the peak effects being day 3. Severe nausea and vomiting may persist * Continue Zofran as needed for nausea and try to increase fluid intake. Advance diet slowly as tolerated * Return to the emergency department if you are unable to keep fluids down or notice a decrease in urine output HPI General Date/Time Provider Initiated Documentation: 01/27/24 12:09 . Limitations to Documentation: no limitations . Information obtained by: patient . HPI Narrative: 68-year-old female with past medical history including A-fib, obesity, presents for evaluation after an accidental overdose of her tirzepatide medication. She reports that yesterday was her first dose and first time injecting the medication. She reports that she was supposed to take 20 injection units (0.2ml) but instead she took 125 injection units (1.25ml) which would be approximately 15.6 mg of medication. She states that she took this around 11 AM yesterday. She reports some mild abdominal pain at the top of her stomach. Reports nausea and vomiting. She has not been able to eat, is tolerating some water. She contacted her primary care doctor who instructed that she come to the emergency department for further evaluation. Related Data Home Medications ?Medication ?Instructions ?Recorded ?Confirmed famotidine 20 mg tablet 20 mg PO BID PRN gastric reflux 11/29/22 01/27/24 #180 tabs acetaminophen 500 mg tablet 1,000 mg (2 x 500 mg) PO TID #90 01/31/23 01/27/24 tabs propafenone 225 mg 225 mg PO Q12H #180 caps 08/17/23 01/27/24 capsule,extended release 12 hr sertraline 50 mg tablet 50 mg PO DAILY #90 tab-caps 08/17/23 01/27/24 apixaban 5 mg tablet (Eliquis) 5 mg PO BID #180 tabs 08/30/23 01/27/24 estradiol 10 mcg vaginal tablet 10 mcg vaginal 2 times weekly #24 09/25/23 01/27/24 (Yuvafem) tab-caps clonazepam 1 mg tablet 1 mg PO QHS PRN insomnia #30 tabs 12/13/23 01/27/24 tirzepatide 2.5 mg/0.5 mL 2.5 mg (0.5 mL) subcut QWEEK #6 mL 01/18/24 01/27/24 subcutaneous pen injector ondansetron 4 mg disintegrating 4 mg PO Q6H PRN nausea and 01/27/24 tablet vomiting #20 tabs ondansetron 4 mg disintegrating 4 mg PO Q6H PRN nausea and 01/27/24 tablet vomiting #20 tabs Previous Rx's ?Medication ?Instructions ?Recorded famotidine 20 mg tablet 20 mg PO BID PRN gastric reflux 11/29/22 #180 tabs acetaminophen 500 mg tablet 1,000 mg (2 x 500 mg) PO TID #90 01/31/23 tabs propafenone 225 mg 225 mg PO Q12H #180 caps 08/17/23 capsule,extended release 12 hr sertraline 50 mg tablet 50 mg PO DAILY #90 tab-caps 08/17/23 apixaban 5 mg tablet (Eliquis) 5 mg PO BID #180 tabs 08/30/23 estradiol 10 mcg vaginal tablet 10 mcg vaginal 2 times weekly #24 09/25/23 (Yuvafem) tab-caps clonazepam 1 mg tablet 1 mg PO QHS PRN insomnia #30 tabs 12/13/23 tirzepatide 2.5 mg/0.5 mL 2.5 mg (0.5 mL) subcut QWEEK #6 mL 01/18/24 subcutaneous pen injector ondansetron 4 mg disintegrating 4 mg PO Q6H PRN nausea and 01/27/24 tablet vomiting #20 tabs ondansetron 4 mg disintegrating 4 mg PO Q6H PRN nausea and 01/27/24 tablet vomiting #20 tabs Allergies Allergy/AdvReac Type Severity Reaction Status Date / Time oxycodone Allergy Blisters Verified 01/01/24 09:37 General Stated Complaint: OD/Poison DAYRON: 2 Exam Narrative Exam Narrative: Review of Systems: All systems reviewed & are unremarkable except as noted in HPI and below Well-developed, no acute distress NCAT PERRL, normal conjunctiva RRR Unlabored respiratory effort clear bilaterally Nondistended abdomen soft nontender no guarding or rebound Extremities w/o deformity, no cyanosis, no edema No rashes or lesions. no focal neurologic deficits Appropriate mood and affect Course Vital Signs Vital signs: Vital Signs Temperature 36.5 C 01/27/24 12:11 Pulse 94 H 01/27/24 12:11 Respiratory Rate 18 01/27/24 12:11 Blood Pressure 150/96 H 01/27/24 12:11 Pulse Oximetry 98 01/27/24 12:11 Temperature 36.5 C 01/27/24 12:11 Pulse 94 H 01/27/24 12:11 Respiratory Rate 18 01/27/24 12:11 Respiratory Effort Normal 01/27/24 12:19 Respiratory Depth Normal 01/27/24 12:19 Respiratory Pattern Normal 01/27/24 12:19 Blood Pressure 150/96 H 01/27/24 12:11 Pulse Oximetry 98 01/27/24 12:11 Pain Level 5 01/27/24 12:11 Lab/Test Results Lab/Test Results: Laboratory Tests Range/Units 01/27/24 12:38 WBC (4.4-10.8) 10^3/uL 7.60 RBC (3.93-5.22) 10^6/uL 4.61 Hgb (11.2-15.7) g/dL 13.3 Hct (36.0-46.0) % 41.3 MCV (80-95) fL 90 MCH (27.0-33.0) pg 28.9 MCHC (32.0-36.0) % 32.2 RDW (11.7-14.6) % 13.5 Plt Count (130-400) 10^3/uL 298 MPV (8.0-11.0) fL 9.5 Immature Gran % % 0.1 Neutrophils % % 71.0 Lymphocytes % % 20.0 Monocytes % % 7.8 Eosinophils % % 0.7 Basophils % % 0.4 Nucleated RBC % (0.0-0.3) % 0.0 Absolute Neutrophils (1.2-6.7) 10^3/uL 5.40 Absolute Lymphocytes (1.2-3.4) 10^3/uL 1.52 Absolute Monocytes (0.1-0.8) 10^3/uL 0.59 Absolute Eosinophils (0.0-0.7) 10^3/uL 0.05 Absolute Basophils (0.0-0.2) 10^3/uL 0.03 Sodium (136-145) mmol/L 142 Potassium (3.5-5.1) mmol/L 3.7 Chloride (98-107) mmol/L 105 Carbon Dioxide (21.0-32.0) mmol/L 27.9 Anion Gap (3-11) mmol/L 9.1 BUN (7-18) mg/dL 8 Creatinine (0.55-1.02) mg/dL 1.0 Est GFR (CKD-EPI 2020) (mL/min/1.73m2) 61.36 Glucose (74-106) mg/dL 93 Calcium (8.5-10.1) mg/dL 10.6 H Total Bilirubin (0.2-1.0) mg/dL 1.05 H AST (15-37) U/L 16 ALT (14-59) U/L 23 Alkaline Phosphatase (46-116) U/L 80 Total Protein (6.4-8.2) g/dL 7.3 Albumin (3.4-5.0) g/dL 3.8 Lipase (16-77) U/L 22 Medical Decision Making Emergent evaluation of accidental medication overdose. The patient has no suicidal ideation and did not intend to inject as much medication, she is having symptoms of some mild abdominal pain as well as vomiting and not tolerating p.o. which are likely known side effects of the medication. Plan for fluid resuscitation, antiemetics will check lab work to evaluate for electrolyte derangement or acute pancreatitis. Will discuss with poison control. EKG reviewed, normal intervals, sinus 87 . I spoke with Poison Control Center. They report that the half-life is 1 week with peak effect at 3 days. They report that symptoms may likely persist or even worsen for the patient. I reviewed her lab work and there is no electrolyte derangement or elevation in her lipase. She has received IV fluids and is tolerating p.o. feeling much better after antiemetics. Will discharge with a few doses of Zofran from the emergency department and send a full prescription to the pharmacy. Discussed expected clinical course with the patient and recommend return if her vomiting worsens or she is not able to tolerate anything by mouth. Otherwise she should follow-up with her PCP for remaining doses of the medication Medical Records Medical records reviewed: Yes I reviewed the patient's medical records. Lab Data Lab results reviewed: Yes I reviewed the patient's lab results. Quality:SDOH Health Related Social Needs: No Data to Display PFSH All Active Problems (Updated 01/27/24 @ 13:31 by Court Cruz MD) Nausea & vomiting (Acute) Accidental drug overdose (Acute) Obesity (BMI 35.0-39.9 without comorbidity) (Acute) Hypercalcemia (Acute) Pleuritic pain (Acute) Pulmonary infarct (Acute) Bilateral pulmonary embolism (Acute) Pulmonary emboli (Chronic) Embolism, pulmonary with infarction (Acute) Acromioclavicular joint arthritis (Chronic) Anxiety and depression (Chronic 01/15/14) Atrial fibrillation (Chronic) Atrophic vaginitis (Chronic 11/02/17) Gastritis (Chronic) 12/07/15-MILD; [facility] INFECTION Hiatal hernia (Chronic) 3 cm 12/07/15 DR. ZEPEDA 11/03/20 [facility] Irritable colon (Chronic) Partial tear of right rotator cuff (Chronic 01/01/16) Posterior vitreous detachment (Chronic 07/14/14) Shoulder pain, left (Chronic 07/08/14) Tinnitus (Chronic) Annual physical exam (Acute) Cerumen impaction (Acute) Weight loss (Acute) COVID-19 (Acute) Onset-09/12/22 Left knee DJD (Acute) Pes anserinus bursitis of left knee (Acute) Medical History (Updated 01/27/24 @ 13:31 by Court Cruz MD) Arthrofibrosis of total knee arthroplasty (~01/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 states she was always told to tell anesthesia that they have difficulty getting a tube down mt throat DVT (deep venous thrombosis) Per pt. stated this was found 3 weeks ago is currently being tx with Chana ANDREW aware. Menopausal disorder (07/08/14) H. pylori infection (04/07/16) STRESS TEST (~03/2011) NORMAL Hiatal hernia GERD (gastroesophageal reflux disease) Microscopic hematuria Depression Atrial fibrillation F/U with cardiology @ [facility] [place]. Hwang 04/2021 Anxiety Rotator cuff tendonitis Surgical History (Updated 02/15/23 @ 18:12 by Kelli Bruce MD) Hx of colonoscopy S/P right knee arthroscopy Hx of hysterectomy History of total right knee replacement DOS 11/23/21 Cystoscopy Augmentation mammoplasty B/L IMPLANTS Arthroscopy, Shoulder 10/06/15; RIGHT Family History Father Colon cancer Essential hypertension Heart disease Hyperlipidemia Mother Essential hypertension Depression Brother Essential hypertension Heart disease Myocardial infarction Neoplasm LUNG Asthma Brother Diabetes Paternal Grandfather Diabetes Essential hypertension Maternal Grandmother Essential hypertension Depression Asthma Social History Smoking/Tobacco Use Status: Never Second Hand Exposure: Yes (CHILDHOOD EXPOSURE) Smoking risk assessment performed?: Yes Alcohol Intake: current Alcohol Intake frequency: a few times a week Alcohol type: hard liquor Drug use: Never Substance use type: does not use Caregiver/Support person: No Household members: spouse Housing: house Communication Needs: None Do you need help understanding health information?: Never Pets and animals: No Sexually active: Yes Do you think of yourself as: straight/heterosexual Current gender identity: female What is your relationship status?: How often do you talk on the phone with friends or family?: twice per week How often do you get together with friends or relatives?: once per week How often do you attend restoration or voodoo services?: 1-3 times per year Do you belong to any clubs or organized social groups?: yes Panel score (0-1 are the most socially isolated patients): 3 What type of physical activity do you participate in: walking and yoga Duration: 30-45 minutes/day Frequency: 3-4 times per week Yaneli/Baptist: No preference Special yaneli needs: No Seatbelt use: always Helmet use: Yes Helmet use: sometimes Drive intox or ride w/intox 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
[2024-01-27] MEDS: Ondansetron O.D.T. 4 MG TABEF, 3 TABS/BTL PO (14:29)
== END 2024-01-27 14:30 | disposition home or self-care (01) ==
PROVIDERS: Emergency Provider Emergency Medicine; PCP Family Medicine
DX: T38.3X1A Poisoning by insulin and oral hypoglycemic [antidiabetic] drugs, accidental (unintentional), initial encounter (principal); R11.2 Nausea with vomiting, unspecified; R51.9 Headache, unspecified; I48.91 Unspecified atrial fibrillation; E66.01 Morbid (severe) obesity due to excess calories; Z86.711 Personal history of pulmonary embolism; Z86.718 Personal history of other venous thrombosis and embolism; Z79.01 Long term (current) use of anticoagulants
CPT/HCPCS: 36415; 80053; 83690; 93005; 96361; 96374; 99284; 85025; 93010; J2405

== ENCOUNTER 2024-01-31 18:07 | Emergency (ER) | payer MEDICARE, BC, SELFPAY ==
[2024-01-31 18:12] VITALS: BP 187/92; PULSE 75; RESP 18; TEMP 37.1; O2SAT 97
--- NOTE | 2024-01-31 18:12 | ED.GENADUL_ITS ---
Discharge Plan Disposition Patient Disposition: Home Condition: Good Discharge Details Clinical Impression: Abdominal pain Primary Care Provider: Sharon Gore ED Provider: Donell Licea Noxen Meds and New Rx's Prescriptions: New sucralfate 1 gram tablet 1 g PO QACHS Qty: 90 0RF Continued famotidine 20 mg tablet 20 mg PO BID PRN (Reason: gastric reflux) Qty: 180 5RF sertraline 50 mg tablet 50 mg PO DAILY Qty: 90 4RF propafenone 225 mg capsule,extended release 12 hr 225 mg PO Q12H Qty: 180 3RF Eliquis 5 mg tablet 5 mg PO BID Qty: 180 5RF estradiol [Yuvafem] 10 mcg tablet 10 mcg VG 2 times weekly Qty: 24 11RF clonazepam 1 mg tablet 1 mg PO QHS MDD 1 PRN (Reason: insomnia) Qty: 30 1RF Rx Instructions: use sparingly tirzepatide 2.5 mg/0.5 mL pen injector 2.5 mg subcut QWEEK Qty: 6 4RF Rx Instructions: do not rx pen injector; Can be compounded ondansetron 4 mg tablet,disintegrating 4 mg PO Q6H PRN (Reason: nausea and vomiting) Qty: 20 0RF acetaminophen 500 mg tablet 1,000 mg PO TID Qty: 90 0RF Discharge Instructions Instructions: Abdominal Pain, Adult ED Additional Instructions: You were seen for upper abdominal pain. Repeat laboratory studies and exam are reassuring. A CT scan shows no acute pathology. This may or may not be related to the accidental overdose of tirzepatide. Potentially may be related to your known acid reflux problems. Please take your famotidine twice a day for the next 1 to 2 weeks. You may continue ondansetron if required for nausea. Prescription for sucralfate has been sent to pharmacy and you should try this for the next week or 2 as well. Please follow-up with your primary care next week for recheck. Return to ED if you develop new or worsening pain, chest pain, shortness of breath, fever, persistent vomiting, black or bloody stools. Referrals: Sharon Gore MD, [place] [Primary Care Provider] - HPI General Mode of arrival: ambulatory . Date/Time Provider Initiated Documentation: 01/31/24 18:12 . Limitations to Documentation: no limitations . Information obtained by: patient and RN notes reviewed . HPI Narrative: Patient presenting to ED with upper abdominal pain radiating to the back. Patient seen her on the after accidental overdose of tirzepatide. She has not really been able to eat much of anything since that day. She is not vomiting like she had been but has no appetite and has some nausea. Ate a little bit of oatmeal around noon time and developed abdominal pain which is now radiating to the back. Has nausea but has not vomited again. Denies any chest pain or shortness of breath. Denies any fever or diarrhea. She does feel that she is probably not been drinking enough but is still making urine. Related Data Home Medications ?Medication ?Instructions ?Recorded ?Confirmed famotidine 20 mg tablet 20 mg PO BID PRN gastric reflux 11/29/22 01/31/24 #180 tabs acetaminophen 500 mg tablet 1,000 mg (2 x 500 mg) PO TID #90 01/31/23 01/31/24 tabs propafenone 225 mg 225 mg PO Q12H #180 caps 08/17/23 01/31/24 capsule,extended release 12 hr sertraline 50 mg tablet 50 mg PO DAILY #90 tab-caps 08/17/23 01/31/24 apixaban 5 mg tablet (Eliquis) 5 mg PO BID #180 tabs 08/30/23 01/31/24 estradiol 10 mcg vaginal tablet 10 mcg vaginal 2 times weekly #24 09/25/23 01/31/24 (Yuvafem) tab-caps clonazepam 1 mg tablet 1 mg PO QHS PRN insomnia #30 tabs 12/13/23 01/31/24 tirzepatide 2.5 mg/0.5 mL 2.5 mg (0.5 mL) subcut QWEEK #6 mL 01/18/24 01/31/24 subcutaneous pen injector ondansetron 4 mg disintegrating 4 mg PO Q6H PRN nausea and 01/27/24 01/31/24 tablet vomiting #20 tabs sucralfate 1 gram tablet 1 g PO QACHS #90 tabs 01/31/24 Previous Rx's ?Medication ?Instructions ?Recorded famotidine 20 mg tablet 20 mg PO BID PRN gastric reflux 11/29/22 #180 tabs acetaminophen 500 mg tablet 1,000 mg (2 x 500 mg) PO TID #90 01/31/23 tabs propafenone 225 mg 225 mg PO Q12H #180 caps 08/17/23 capsule,extended release 12 hr sertraline 50 mg tablet 50 mg PO DAILY #90 tab-caps 08/17/23 apixaban 5 mg tablet (Eliquis) 5 mg PO BID #180 tabs 08/30/23 estradiol 10 mcg vaginal tablet 10 mcg vaginal 2 times weekly #24 09/25/23 (Yuvafem) tab-caps clonazepam 1 mg tablet 1 mg PO QHS PRN insomnia #30 tabs 12/13/23 tirzepatide 2.5 mg/0.5 mL 2.5 mg (0.5 mL) subcut QWEEK #6 mL 01/18/24 subcutaneous pen injector ondansetron 4 mg disintegrating 4 mg PO Q6H PRN nausea and 01/27/24 tablet vomiting #20 tabs sucralfate 1 gram tablet 1 g PO QACHS #90 tabs 01/31/24 Allergies Allergy/AdvReac Type Severity Reaction Status Date / Time oxycodone Allergy Blisters Verified 01/31/24 18:16 General DAYRON: 2 Review of Systems Narrative: Per HPI Exam Narrative Exam Narrative: Const: WDWN female in NAD. VS per triage. HEENT: NC/AT. Normal facial exam. Neck: Supple. Trachea midline. Lungs: Normal respiratory effort. Lungs are clear. Cor: RRR without murmur. Good radial pulses. GI: Soft/ND/NT. No RUQ tenderness. Neuro: A+O x 3. Normal speech, mentation, gait. Cranial nerves II - XII grossly intact. No gross motor or sensory deficit. Ext: No C/C/E. Medical Decision Making Patient presenting to the ED with upper abdominal pain radiating to the back onset this afternoon. On the accidentally injected much more than the initial dose of tirzepatide. Per notes from that day poison control said half- life is very long and symptoms may worsen before they got better. Significant adverse side effect of pancreatitis is a known complication of the medication. Her abdomen is benign to exam. IV established and fluids started. Morphine given for pain. Laboratory studies sent. 22:00 - Patient's pain a little improved with morphine. Labs returned with no significant abnormalities. White count and hemoglobin are normal. Chemistries with mild hypokalemia at 5.3. Kidney function normal. Liver function with minimal elevation in AST and total bili. Lipase is normal. Elected to obtain CT of the abdomen given continued pain. CT per preliminary read from radiology with no acute process. Patient with significant history of reflux and gastritis. Given GI cocktail and IV famotidine. May be noticed minimal improvement. Will have her continue her famotidine at home twice a day. Will add 1 g sucralfate 4 times a day. May continue ondansetron as needed. Follow- up with primary care next week. Return precautions provided. Lab Data Lab results reviewed: Yes I reviewed the patient's lab results. Lab results narrative: See [facility] All Active Problems (Updated 01/31/24 @ 21:45 by Donell Licea MD) Abdominal pain (Acute) Nausea & vomiting (Acute) Accidental drug overdose (Acute) Obesity (BMI 35.0-39.9 without comorbidity) (Acute) Hypercalcemia (Acute) Acromioclavicular joint arthritis (Chronic) Atrophic vaginitis (Chronic 11/02/17) Irritable colon (Chronic) Partial tear of right rotator cuff (Chronic 01/01/16) Posterior vitreous detachment (Chronic 07/14/14) Shoulder pain, left (Chronic 07/08/14) Tinnitus (Chronic) Annual physical exam (Acute) Cerumen impaction (Acute) Weight loss (Acute) Left knee DJD (Acute) Pes anserinus bursitis of left knee (Acute) Medical History Bilateral pulmonary embolism Arthrofibrosis of total knee arthroplasty (~01/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 states she was always told to tell anesthesia that they have difficulty getting a tube down mt throat DVT (deep venous thrombosis) Per pt. stated this was found 3 weeks ago is currently being tx with Chana ANDREW aware. Menopausal disorder (07/08/14) H. pylori infection (04/07/16) STRESS TEST (~03/2011) NORMAL Hiatal hernia GERD (gastroesophageal reflux disease) Microscopic hematuria Depression Atrial fibrillation F/U with cardiology @ [facility] – [place]. Dr. Hwang 04/2021 Anxiety Rotator cuff tendonitis Surgical History Hx of colonoscopy S/P right knee arthroscopy Hx of hysterectomy History of total right knee replacement DOS 11/23/21 Cystoscopy Augmentation mammoplasty B/L IMPLANTS Arthroscopy, Shoulder 10/06/15; RIGHT Family History Father Colon cancer Essential hypertension Heart disease Hyperlipidemia Mother Essential hypertension Depression Brother Essential hypertension Heart disease Myocardial infarction Neoplasm LUNG Asthma Brother Diabetes Paternal Grandfather Diabetes Essential hypertension Maternal Grandmother Essential hypertension Depression Asthma Social History Smoking/Tobacco Use Status: Never Second Hand Exposure: Yes (CHILDHOOD EXPOSURE) Smoking risk assessment performed?: Yes Alcohol Intake: current Alcohol Intake frequency: a few times a week Alcohol type: hard liquor Drug use: Never Substance use type: does not use Caregiver/Support person: No Household members: spouse Housing: house Communication Needs: None Do you need help understanding health information?: Never Pets and animals: No Sexually active: Yes Do you think of yourself as: straight/heterosexual Current gender identity: female What is your relationship status?: How often do you talk on the phone with friends or family?: twice per week How often do you get together with friends or relatives?: once per week How often do you attend mandaeism or shinto services?: 1-3 times per year Do you belong to any clubs or organized social groups?: yes Panel score (0-1 are the most socially isolated patients): 3 What type of physical activity do you participate in: walking and yoga Duration: 30-45 minutes/day Frequency: 3-4 times per week Yaneli/Presybeterian: No preference Special yaneli needs: No Seatbelt use: always Helmet use: Yes Helmet use: sometimes Drive intox or ride w/intox truck driver: No Do you feel safe at home: Yes Do you feel safe in your relationship?: Yes
[2024-01-31] MEDS: Lactated Ringers 1,000 ML 1000 ML IV (18:52)
[2024-01-31 18:59] LABS: Abs Immature Grans 0.02 10^3/uL (0.0-0.06); Absolute Basophil Count 0.05 10^3/uL (0.0-0.2); Absolute Eosinophil Count 0.15 10^3/uL (0.0-0.7); Absolute Lymphocyte Count 1.95 10^3/uL (1.2-3.4); Absolute Monocyte Count 0.63 10^3/uL (0.1-0.8); Absolute Neutrophil Count 4.54 10^3/uL (1.2-6.7); Basophils % 0.7 %; HCT 39.1 % (36.0-46.0); HGB 12.9 g/dL (11.2-15.7); Immature Grans % 0.3 %; Lymphocytes % 26.6 %; MCH 29.5 pg (27.0-33.0); MCV 89 fL (80-95); MPV 9.2 fL (8.0-11.0); Monocytes % 8.6 %; Neutrophils % 61.8 %; Platelet Count 261 10^3/uL (130-400); RBC 4.38 10^6/uL (3.93-5.22); RDW-SD 42.7 fL; WBC 7.34 10^3/uL (4.4-10.8)
[2024-01-31 19:20] LABS: ALT 20 U/L (14-59); AST 38 U/L (15-37); Albumin 3.6 g/dL (3.4-5.0); Alkaline Phosphatase 70 U/L (46-116); Anion Gap 11.5 mmol/L (3-11); BUN 14 mg/dL (7-18); Bilirubin, Total 1.12 mg/dL (0.2-1.0); CO2 25.5 mmol/L (21.0-32.0); Calcium 10.5 mg/dL (8.5-10.1); Chloride 105 mmol/L (98-107); Estimated GFR 61.36 (mL/min/1.73m2); Glucose 79 mg/dL (74-106); Lipase 37 U/L (16-77); Magnesium 2.1 mg/dL (1.8-2.4); Potassium 5.3 mmol/L (3.5-5.1); Sodium 142 mmol/L (136-145); Total Protein 7.2 g/dL (6.4-8.2)
--- NOTE | 2024-01-31 19:30 | DI.CT_ITS ---
Exam(s) CT ABDOMEN PELVIS W EXAM: CT ABDOMEN PELVIS W CLINICAL HISTORY: upper abd pain. TECHNIQUE: Imaging Protocol: Axial computed tomography images with coronal and sagittal reformatted images were created and reviewed CONTRAST MATERIAL: Intravenous: Omnipaque 350 Contrast volume:100 ml Oral: yes / no COMPARISON: CT CT THORAX ABDOMEN CTA from 02/15/2023 FINDINGS: ABDOMEN and PELVIS: Lung Bases: Left basilar atelectasis. Liver: Normal density. Multiple liver cysts noted, unchanged. No suspicious mass. Gallbladder and biliary tract: No radiodense calculus. No biliary dilation. Pancreas: Normal density. No abnormal calcifications or inflammatory process. No evidence of mass. Spleen: Normal. Kidneys: Normal size, contour and axis. No radiodense stones. No obstructive uropathy. Several left renal cysts are stable. No suspicious masses seen. Retroaortic left renal vein. Adrenal glands: No masses seen. Vasculature: Abdominal aorta non-dilated. Soft tissues: Unremarkable. Bladder: No gross wall thickening. No calculi.No focal mass. Bowel: No obstruction. No bowel wall thickening. Mild diverticulosis. No evidence of diverticulit is. Appendix normal. Peritoneal cavity: No ascites. No focal collection. No mesenteric inflammatory response. Bones: Degenerative changes in the spine greatest at L4-5 and L5-S1. Reproductive organs: Unremarkable. Lymph nodes: No pathologically enlarged lymph nodes. IMPRESSION:: No acute abnormality in the abdomen or pelvis. RADIATION DOSE DELIVERED: Total DLP DATA REPOSITORY: All CT scans at this facility are submitted to the National Radiology Data Registry (NRDR) Dose Index Registry (DIR) with the [employer] ([employer]). RADIATION OPTIMIZATION: All CT scans at this facility use at least one of these dose optimization te chniques: automated exposure control; mA and/or kV adjustment per patient size (includes targeted exa ms where dose is matched to clinical indication); or iterative reconstruction.
[2024-01-31] MEDS: MORPHine 10 MG/ML VIAL 4 MG IVP (19:39)
[2024-01-31] MEDS: Omnipaque 350 MG/ML 100 ML BTL IJ (20:48)
[2024-01-31] MEDS: Normal Saline Flush 10 ML SYR IVP (20:49)
[2024-01-31] MEDS: Normal Saline - Diluent 50 ML VIAL IJ (20:49)
--- NOTE | 2024-01-31 21:05 | DI.VRAD_ITS ---
PROCEDURE INFORMATION: Exam: CT Abdomen And Pelvis With Contrast Exam date and time: 01/31/2024 8:22 PM Age: 68 years old Clinical indication: Other: Upper abd pain TECHNIQUE: Imaging protocol: Computed tomography of the abdomen and pelvis with contrast. Contrast material: 350; Contrast volume: 100 ml; Contrast route: INTRAVENOUS (IV); COMPARISON: CT THORAX ABDOMEN CTA 02/15/2023 6:36 AM FINDINGS: Liver: Several scattered simple appearing cysts noted in the liver. Liver is otherwise unremarkable. Gallbladder and biliary ducts: Normal. No calcified stones. No ductal dilation. Pancreas: Normal. No ductal dilation. Spleen: Normal. No splenomegaly. Adrenal glands: Normal. No mass. Kidneys and ureters: Stable simple appearing left renal cortical cysts, the largest measuring 1.5 cm. Right kidney appears normal. No hydronephrosis. Stomach and bowel: Unremarkable. No obstruction. No mucosal thickening. Appendix: No evidence of appendicitis. Intraperitoneal space: Unremarkable. No free air. No significant fluid collection. Vasculature: Incidentally noted retroaortic left renal vein. No evidence of aortic aneurysm or dissection. Lymph nodes: Unremarkable. No enlarged lymph nodes. Urinary bladder: Unremarkable as visualized. Reproductive: Uterus is surgically absent. No adnexal abnormality. Bones/joints: Severe degenerative disc changes and facet arthropathy in the lumbar spine with grade 1 anterolisthesis of L4 and L5. No vertebral body compression or acute fracture. Soft tissues: Unremarkable. IMPRESSION: No acute abnormality. Significant chronic osseous changes as noted. Dictated and Authenticated by: Jovani Pimentel MD. Ordering:DONOVAN Marley MD
[2024-01-31] MEDS: Famotidine 20 MG/2 ML VIAL IVP (21:23)
[2024-01-31 21:56] VITALS: BP 158/99; PULSE 70; O2SAT 94
== END 2024-01-31 21:57 | disposition home or self-care (01) ==
PROVIDERS: Emergency Provider Emergency Medicine; PCP Family Medicine
DX: R10.10 Upper abdominal pain, unspecified (principal); K21.9 Gastro-esophageal reflux disease without esophagitis; Z86.711 Personal history of pulmonary embolism; Z86.718 Personal history of other venous thrombosis and embolism; Z79.01 Long term (current) use of anticoagulants; I48.91 Unspecified atrial fibrillation
CPT/HCPCS: 80053; 83690; 96361; 96374; 96375; 99285; 74177; 83735; 85025; 99284; J2270; J3490

== ENCOUNTER 2024-04-12 09:30 | Outpatient (CLI) | payer MEDICARE, BC, SELFPAY ==
--- NOTE | 2024-04-12 08:15 | DI.RAD_ITS ---
Exam(s) XR HIP LT COMPLETE AP PELVIS EXAM: XR HIP LT COMPLETE AP PELVIS CLINICAL HISTORY: left hip pain. TECHNIQUE: 2D digital imaging was performed. COMPARISON: CT CT ABDOMEN PELVIS W from 01/31/2024 FINDINGS: 3 views No evidence pelvic hip fracture. No hip joint space narrowing. Additional lateral view of left hip reveals no obvious narrowing nor osteophytes. Bone density age-appropriate. No osseous lesions. IMPRESSION: No significant osseous findings in the pelvis and hips. DATA REPOSITORY: RADIATION DOSE DELIVERED:
--- NOTE | 2024-04-12 08:15 | DI.RAD_ITS ---
Exam(s) XR KNEE LT 3V AP,LAT,ADITYA EXAM: XR KNEE LT 3V AP,LAT,ADITYA CLINICAL HISTORY: left knee pain. TECHNIQUE: 2D digital imaging was performed. COMPARISON: CR XR KNEE RT 2V AP,LAT from 01/01/2024 FINDINGS: 3 views No evidence of acute fracture although there does appear to be small joint effusion. In addition the re is a calcific density in the soft tissues immediately adjacent to the outer aspect of medial femor al condyle measuring 8 millimeter height by 2 millimeters wide. This at may be related to the medial collateral ligament such as prior [id number] injury. There is also a calcification note d posteriorly on the lateral view noted which may or may not represent a fabella. There is mild narr owing of the medial compartment noted. IMPRESSION: Mild narrowing of the medial compartment. Soft tissue calcifications as above. DATA REPOSITORY: RADIATION DOSE DELIVERED:
== END 2024-04-12 09:31 ==
LOC: DIORS 09:31
PROVIDERS: PCP Family Medicine; Referring Provider Family Medicine; Visit Provider Physician Assistant
DX: M17.12 Unilateral primary osteoarthritis, left knee (principal); M70.62 Trochanteric bursitis, left hip
CPT/HCPCS: 20610; 73562; J1010; 73502

== ENCOUNTER 2025-02-07 01:14 | Outpatient (CLI) | payer MEDICARE, BC, SELFPAY ==
[2025-02-07 12:21] LABS: HCT 42.3 % (36.0-46.0); HGB 13.4 g/dL (11.2-15.7); MCH 29.0 pg (27.0-33.0); MCHC 31.7 % (32.0-36.0); MCV 92 fL (80-95); MPV 9.5 fL (8.0-11.0); Platelet Count 322 10^3/uL (130-400); RBC 4.62 10^6/uL (3.93-5.22); RDW 13.4 % (11.7-14.6); RDW-SD 45.2 fL; WBC 5.07 10^3/uL (4.4-10.8)
[2025-02-07 12:37] LABS: ALT 25 U/L (14-59); AST 21 U/L (15-37); Albumin 3.8 g/dL (3.4-5.0); Alkaline Phosphatase 83 U/L (46-116); Anion Gap 6.9 mmol/L (3-11); BUN 10 mg/dL (7-18); Bilirubin, Total 0.8 mg/dL (0.2-1.0); CO2 29.1 mmol/L (21.0-32.0); Calcium 10.6 mg/dL (8.5-10.1); Chloride 105 mmol/L (98-107); Estimated GFR 79.71 (mL/min/1.73m2); Glucose 86 mg/dL (74-106); Potassium 4.1 mmol/L (3.5-5.1); Sodium 141 mmol/L (136-145); Total Protein 7.2 g/dL (6.4-8.2)
== END 2025-02-07 01:15 | disposition home or self-care (01) ==
LOC: LOS 01:15
PROVIDERS: PCP Family Medicine; Visit Provider Family Medicine
DX: Z79.01 Long term (current) use of anticoagulants (principal); I10 Essential (primary) hypertension
CPT/HCPCS: 36415; 80053; 85027

== ENCOUNTER → 2025-02-21 09:36 | Outpatient (BNVA) | payer MEDICARE, BC, SELFPAY | PROVIDERS: PCP Family Medicine; Referring Provider Family Medicine; Visit Provider Physician Assistant | DX: M17.12 Unilateral primary osteoarthritis, left knee (principal) | CPT/HCPCS: 20610; J1010 ==

== ENCOUNTER 2025-02-26 02:22 | Outpatient (CLI) | payer MEDICARE, BC, SELFPAY ==
[2025-02-26 12:44] LABS: ALT 40 U/L (14-59); AST 29 U/L (15-37); Albumin 3.7 g/dL (3.4-5.0); Alkaline Phosphatase 74 U/L (46-116); Anion Gap 6.3 mmol/L (3-11); BUN 16 mg/dL (7-18); Bilirubin, Total 1.0 mg/dL (0.2-1.0); CO2 31.7 mmol/L (21.0-32.0); Calcium 10.6 mg/dL (8.5-10.1); Chloride 104 mmol/L (98-107); Estimated GFR 79.71 (mL/min/1.73m2); Glucose 85 mg/dL (74-106); Potassium 4.0 mmol/L (3.5-5.1); Sodium 142 mmol/L (136-145); Total Protein 7.0 g/dL (6.4-8.2)
[2025-02-26 13:00] LABS: Lab Add On Test DONE
== END 2025-02-26 02:23 | disposition home or self-care (01) ==
LOC: LOS 02:22
PROVIDERS: PCP Family Medicine; Visit Provider Family Medicine
DX: E83.52 Hypercalcemia (principal); I10 Essential (primary) hypertension
CPT/HCPCS: 36415; 80053; 82330; 83970

== ENCOUNTER 2025-06-17 14:58 | Emergency (ER) | payer MEDICARE, BC, SELFPAY ==
[2025-06-17] VITALS (21 sets, daily range): BP systolic 129–141; BP diastolic 68–101; PULSE 69–105; RESP 10–21; TEMP 36.7; O2SAT 94–99
--- NOTE | 2025-06-17 15:00 | RT.EKG_ITS ---
APPROVED REPORT Exam: Resting ECG Reason for Exam: palp Patient Location: E HR:159 bpm ECG Measurements Heart Rate 159 AXIS W[place] [id number] P [id number] QRSd 87 QRS -28 QT 268 T 158 QTc 444 Conclusion Atrial fibrillation with rapid V-rate...A-rate 352 Repolarization abnormality, prob rate related...ST dep, T neg, tachycardia No Occlusion SC
--- NOTE | 2025-06-17 15:15 | ED.GENADUL_ITS ---
Discharge Plan Discharge Details Chief Complaint: Palpitatns Clinical Impression: Atrial fibrillation with RVR Primary Care Provider: Sharon Gore ED Provider: Fran Hayes Home Meds and New Rx's Prescriptions: No Action famotidine 20 mg tablet 20 mg PO BID PRN (Reason: gastric reflux) Qty: 180 5RF clonazepam 1 mg tablet 1 mg PO QHS MDD 1 PRN (Reason: insomnia) Qty: 30 1RF Rx Instructions: use sparingly sertraline 50 mg tablet 50 mg PO DAILY Qty: 90 4RF estradiol [Yuvafem] 10 mcg tablet 10 mcg VG 2 times weekly Qty: 24 11RF tirzepatide 2.5 mg/0.5 mL pen injector 2.5 mg subcut QWEEK Qty: 6 4RF Rx Instructions: Tirzepatide 25mg/ml + hyrdoxyocobalamin 2.5mg/ml solution. Needed for compounding to decrease the risk of side effects from fatigue Eliquis 5 mg tablet 5 mg PO BID Qty: 180 5RF acetaminophen 500 mg tablet 1,000 mg PO TID Qty: 90 0RF HPI General Date/Time Provider Initiated Documentation: 06/17/25 15:10 . HPI Narrative: MDM This is an overall very well appearing normotensive initially tachycardic 69-year-old female anticoagulated on apixaban with initial A-fib with RVR who spontaneously converted in the emergency department back to normal sinus rhythm. No chest pain to suggest ACS so did not obtain a troponin. Patient has had abnormal calcium levels in the past several assessment any acute hypercalcemia and electrolyte abnormalities. Will check a TSH. She has no signs of heart failure to suggest benefit from diuresis. No shortness of breath suggest PE. She has been adherent with her apixaban up until this morning so we will treat her with her home 5 mg dose of apixaban. Her repeat ECG shows narrow complex normal sinus rhythm at a rate of 88. Left axis deviation no signs of LVH. Mild ST segment depressions V5 V6. Appears similar to prior before A-fib with RVR. Patient is not have any black or bloody stools to suggest acute GI bleed. Will treat with 2 g magnesium. Given the patient has spontaneously converted and this is her first episode since her ablation I do not feel she requires an emergent cardiology consultation. 4:34 PM Patient was persistently in normal sinus rhythm. Signed patient out to Dr. Hayes. She is pending assessment of her electrolytes chest x-ray. Anticipate she will require an ambulatory trial on telemetry to ensure she does not convert back into atrial fibrillation. She has received 2 g of magnesium and 500 cc of normal saline. If she continues to feel improved show would likely be appropriate for discharge with empiric trial of expectant outpatient management but will defer this decision to Dr. Hayes. HPI This is a patient with a history of atrial fibrillation presenting with palpitations. The patient experienced a sudden onset of rapid heartbeat while at home, which was accompanied by lightheadedness. The episode began at 2 PM today and has since subsided in intensity but has not completely resolved. The patient reports no chest pain. The patient is currently on Eliquis 5 mg but missed the morning dose today. The patient is not on any beta blockers or calcium channel blockers. The patient was previously on antiarrhythmic medication prior to an ablation procedure performed on 11/28/2024. Post-ablation, the patient had a few episodes of tachycardia, but they were not as fast as the current episode and typically lasted between 10 to 20 minutes. The patient reports no symptoms of nausea, shortness of breath, or leg swelling. The patient's primary care physician, Dr. Cuellar, is monitoring calcium levels due to a previous elevation. PAST SURGICAL HISTORY: Ablation procedure on 11/28/2024. Exam General: Well-appearing in no acute distress speaking in complete sentences. Head: Normocephalic, atraumatic. Eye: Extraocular eye movements intact. No conjunctival injection. No scleral icterus. Ear, nose, mouth, throat: Grossly normal inspection. Normal voice, handling secretions normally. Neck: Trachea midline. Cardiovascular: Well-perfused distal extremities. Irregular irregular rate. Respiratory: Nonlabored respiration. Clear lungs bilaterally. Gastrointestinal: Nondistended abdomen. Musculoskeletal: No significant lower extremity pitting edema. Moving all 4 extremities spontaneously. Skin: Normal for age and race, grossly normal temperature and turgor. No acute rash. Neurologic: Alert and appropriate, no apparent acute deficits. Psychiatric: Mood and manner are appropriate. Grooming and personal hygiene are appropriate. Related Data Home Medications ?Medication ?Instructions ?Recorded ?Confirmed famotidine 20 mg tablet 20 mg PO BID PRN gastric ref lux 11/29/22 06/17/25 #180 tabs acetaminophen 500 mg tablet 1,000 mg (2 x 500 mg) PO T ID #90 01/31/23 06/17/25 tabs clonazepam 1 mg tablet 1 mg PO QHS PRN insomnia #30 tabs 06/24/24 06/17/25 sertraline 50 mg tablet 50 mg PO DAILY #90 tab-caps 10/08/24 06/17/25 estradiol 10 mcg vaginal tablet 10 mcg vaginal 2 times weekly #24 12/02/24 06/17/25 (Yuvafem) tab-caps tirzepatide 2.5 mg/0.5 mL 2.5 mg (0.5 mL) subcut QWEEK #6 mL 12/31/24 06/17/25 subcutaneous pen injector apixaban 5 mg tablet (Eliquis) 5 mg PO BID #180 tabs 1 06/17/25 Previous Rx's ?Medication ?Instructions ?Recorded famotidine 20 mg tablet 20 mg PO BID PRN gastric ref lux 11/29/22 #180 tabs acetaminophen 500 mg tablet 1,000 mg (2 x 500 mg) PO T ID #90 01/31/23 tabs clonazepam 1 mg tablet 1 mg PO QHS PRN insomnia #30 tabs 06/24/24 sertraline 50 mg tablet 50 mg PO DAILY #90 tab-caps 10/08/24 estradiol 10 mcg vaginal tablet 10 mcg vaginal 2 times weekly #24 12/02/24 (Yuvafem) tab-caps tirzepatide 2.5 mg/0.5 mL 2.5 mg (0.5 mL) subcut QWEEK #6 mL 12/31/24 subcutaneous pen injector apixaban 5 mg tablet (Eliquis) 5 mg PO BID #180 tabs 1 Allergies Allergy/AdvReac Type Severity Reaction Status Date / Time oxycodone Allergy Blisters Verified 06/17/25 15:12 General Stated Complaint: Palpitatns DAYRON: 2 Course Vital Signs Vital signs: Vital Signs Temperature 36.7 C 06/17/25 15:10 Pulse 103 H 06/17/25 15:10 Respiratory Rate 20 06/17/25 15:10 Blood Pressure 138/101 H 06/17/25 15:10 Pulse Oximetry 97 06/17/25 15:10 Temperature 36.7 C 06/17/25 15:10 Pulse 103 H 06/17/25 15:10 Respiratory Rate 20 06/17/25 15:10 Blood Pressure 138/101 H 06/17/25 15:10 Blood Pressure Position Sitting 06/17/25 15:10 Pulse Oximetry 97 06/17/25 15:10 Oxygen Delivery Method Room Air 06/17/25 15:10 Oxygen Flow Rate 0 06/17/25 15:10 PFSH All Active Problems (Updated 06/17/25 @ 16:35 by Jesus Stanley MD) Atrial fibrillation with RVR (Acute) Chronic anticoagulation (Acute) Trochanteric bursitis, left hip (Acute) Depo-medrol: 04/12/24 Obesity (BMI 35.0-39.9 without comorbidity) (Acute) Hypercalcemia (Acute) Acromioclavicular joint arthritis (Chronic) Atrophic vaginitis (Chronic 11/02/17) Irritable colon (Chronic) Partial tear of right rotator cuff (Chronic 01/01/16) Posterior vitreous detachment (Chronic 07/14/14) Shoulder pain, left (Chronic 07/08/14) Tinnitus (Chronic) Annual physical exam (Acute) Cerumen impaction (Acute) Weight loss (Acute) Left knee DJD (Chronic) 80 mg Depo-Medrol injection: 02/21/25; 04/12/2024 Pes anserinus bursitis of left knee (Acute) Medical History Bilateral pulmonary embolism Arthrofibrosis of total knee arthroplasty (~01/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 states she was always told to tell anesthesia that they have difficulty getting a tube down mt throat DVT (deep venous thrombosis) Per pt. stated this was found 3 weeks ago is currently being tx with Chana ANDREW aware. Menopausal disorder (07/08/14) H. pylori infection (04/07/16) STRESS TEST (~03/2011) NORMAL Hiatal hernia GERD (gastroesophageal reflux disease) Microscopic hematuria Depression Atrial fibrillation F/U with cardiology @ [facility] [place]. Dr. Hwang 04/2021 Anxiety Rotator cuff tendonitis Surgical History Hx of colonoscopy S/P right knee arthroscopy Hx of hysterectomy History of total right knee replacement DOS 11/23/21 Cystoscopy Augmentation mammoplasty B/L IMPLANTS Arthroscopy, Shoulder 10/06/15; RIGHT Family History Father Colon cancer Essential hypertension Heart disease Hyperlipidemia Mother Essential hypertension Depression Brother Essential hypertension Heart disease Myocardial infarction Neoplasm LUNG Asthma Brother Diabetes Paternal Grandfather Diabetes Essential hypertension Maternal Grandmother Essential hypertension Depression Asthma Social History Smoking/Tobacco Use Status: Never Second Hand Exposure: Yes (CHILDHOOD EXPOSURE) Smoking risk assessment performed?: Yes Alcohol Intake: current Alcohol Intake frequency: a few times a week Alcohol type: hard liquor Drug use: Never Substance use type: does not use Caregiver/Support person: No Household members: spouse Housing: house Communication Needs: None Do you need help understanding health information?: Never Pets and animals: No Sexually active: Yes Do you think of yourself as: straight/heterosexual Current gender identity: female What is your relationship status?: How often do you talk on the phone with friends or family?: twice per week How often do you get together with friends or relatives?: once per week How often do you attend anabaptist or pentecostalism services?: 1-3 times per year Do you belong to any clubs or organized social groups?: yes Panel score (0-1 are the most socially isolated patients): 3 What type of physical activity do you participate in: walking and yoga Duration: 30-45 minutes/day Frequency: 3-4 times per week Yaneli/Christianity: No preference Special yaneli needs: No Seatbelt use: always Helmet use: Yes Helmet use: sometimes Drive 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
--- NOTE | 2025-06-17 15:15 | DI.RAD_ITS ---
Exam(s) XR PORTABLE CHEST AP EXAM: XR PORTABLE CHEST AP CLINICAL HISTORY: Palpitations TECHNIQUE: 2D digital imaging was performed. COMPARISON: No exams were available for comparison FINDINGS: There monitoring leads overlying the chest. LUNGS: Clear. No pleural abnormality seen. HEART: Normal size. AORTA: Normal diameter. BONES: Unremarkable for age. Soft tissues: Unremarkable. IMPRESSION: No acute findings. DATA REPOSITORY: RADIATION DOSE DELIVERED:
--- NOTE | 2025-06-17 15:30 | RT.EKG_ITS ---
APPROVED REPORT Exam: Resting ECG Reason for Exam: palp Patient Location: E HR:88 bpm ECG Measurements Heart Rate 88 AXIS OR 164 P 81 QRSd 92 QRS -41 QT 331 T 49 QTc 400 Conclusion Sinus rhythm...normal P axis, V-rate 60- 99 Left anterior fascicular block...axis(240,-40), init forces inf No BRAXTON
[2025-06-17 16:17] LABS: Abs Immature Grans 0.02 10^3/uL (0.0-0.06); HCT 39.8 % (36.0-46.0); HGB 12.8 g/dL (11.2-15.7); Immature Grans % 0.3 %; MCH 28.4 pg (27.0-33.0); MCHC 32.2 % (32.0-36.0); MCV 88 fL (80-95); MPV 8.9 fL (8.0-11.0); Platelet Count 242 10^3/uL (130-400); RBC 4.50 10^6/uL (3.93-5.22); RDW 13.0 % (11.7-14.6); RDW-SD 42.5 fL; WBC 7.13 10^3/uL (4.4-10.8)
[2025-06-17] MEDS: MAGNESIUM SULFATE 2 GM/50 ML BAG IVINF (16:25)
[2025-06-17] MEDS: Normal Saline 500 ML IV (16:25)
[2025-06-17] MEDS: Apixaban 5 MG TAB PO (16:25)
[2025-06-17 16:44] LABS: Magnesium 2.1 mg/dL (1.6-2.6)
[2025-06-17 16:45] LABS: Anion Gap 8 mmol/L (3-11); BUN 12 mg/dL (9-23); CO2 29.0 mmol/L (20.0-31.0); Calcium 11.1 mg/dL (8.3-10.6); Chloride 109 mmol/L (98-107); Glucose 99 mg/dL (74-106); Potassium 3.9 mmol/L (3.5-5.1); Sodium 146 mmol/L (136-145)
[2025-06-17 16:49] LABS: TSH (W/Ref FT4) 1.94 uIU/mL (0.55-4.78)
[2025-06-17] MEDS: Lactated Ringers 1,000 ML 1000 ML IV (17:17)
--- NOTE | 2025-06-17 18:19 | W.EDPROG ---
Date of service: 06/17/25 Time of Service: 18:19 Medical Decision Making I, Fran Hayes, took signout on this patient. In summary 69-year-old female history of A-fib status post ablation and on apixaban. Arrived and initial EKG was showing atrial fibrillation but before any intervention patient spontaneously converted to normal sinus rhythm. Now symptom-free. EKG unremarkable now. Signed out to me pending labs and reevaluation. Labs are grossly unremarkable other than some mild hyponatremia and mild hypercalcemia likely due to dehydration. Given some IV fluids and ambulated here after this and no recurrence of symptoms and no recurrent palpitations or arrhythmia. She feels better and would like to go home which I think is reasonable. 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 Will discharge with return precautions. Medical Records Medical records reviewed: Yes I reviewed the patient's medical records. Lab Data Lab results reviewed: Yes I reviewed the patient's lab results. ECG Data Attestation: I personally reviewed and interpreted this ECG (s) as follows: Prior ECG tracings: available for review Interpretation: Initially atrial fibrillation but without intervention and spontaneously converted to sinus rhythm Discharge Plan Disposition Patient Disposition: Home Discharge Details Clinical Impression: Atrial fibrillation with RVR, Hypercalcemia, Hypernatremia Primary Care Provider: Sharon Gore ED Provider: Fran Hayes Home Meds and New Rx's Prescriptions: No Action famotidine 20 mg tablet 20 mg PO BID PRN (Reason: gastric reflux) Qty: 180 5RF clonazepam 1 mg tablet 1 mg PO QHS MDD 1 PRN (Reason: insomnia) Qty: 30 1RF Rx Instructions: use sparingly sertraline 50 mg tablet 50 mg PO DAILY Qty: 90 4RF estradiol [Yuvafem] 10 mcg tablet 10 mcg VG 2 times weekly Qty: 24 11RF tirzepatide 2.5 mg/0.5 mL pen injector 2.5 mg subcut QWEEK Qty: 6 4RF Rx Instructions: Tirzepatide 25mg/ml + hyrdoxyocobalamin 2.5mg/ml solution. Needed for compounding to decrease the risk of side effects from fatigue Eliquis 5 mg tablet 5 mg PO BID Qty: 180 5RF acetaminophen 500 mg tablet 1,000 mg PO TID Qty: 90 0RF Discharge Instructions Instructions: Atrial Fibrillation (DC) Additional Instructions: You were seen in the emergency department for palpitations. You were initially in atrial fibrillation but you spontaneously converted back into a normal rhythm. Your EKG after converting was normal and your labs were unremarkable other than a slightly high sodium level and slightly high calcium level which can be due to dehydration. We gave you some IV fluids here and you were able to walk without any recurrence of your symptoms. Please follow-up with your primary care doctor. They may want to repeat your calcium level and sodium level and may want to order additional levels for your elevated calcium. If you have worsening symptoms or have any other concerns then please return to the emergency department. Stand Alone Forms: Portal Information
== END 2025-06-17 18:32 | disposition home or self-care (01) ==
PROVIDERS: Emergency Medicine; Emergency Provider Student in an Organized Health Care Education/Training Program; PCP Family Medicine
DX: I48.91 Unspecified atrial fibrillation (principal); I44.4 Left anterior fascicular block; Z86.718 Personal history of other venous thrombosis and embolism; Z79.01 Long term (current) use of anticoagulants
CPT/HCPCS: 00123; 36415; 80048; 93005; 96365; 96366; 99284; 71045; 83735; 84443; 85025; 93010; J3475